=== PATIENT | female | born 1950 | race Caucasian/White ===

== ENCOUNTER 2021-03-27 09:13 | Inpatient (IN) | payer MEDICARE ==
[2021-03-27] MEDS ORDERED: PANTOPRAZOLE 40 MG/10 ML VIAL IVP STA (10:31)
[2021-03-27 10:57] LABS: Basophils % (A) 1 %; Eosinophils # (A) 0.2 k/uL (0-0.7); Eosinophils % (A) 2 %; HCT 36.2 % (34.0-46.0); Lymphocytes % (A) 14 %; MCH 36.8 pg (25.0-35.0); MCHC 33.2 g/dL (31.0-37.0); MCV 110.9 fL (80.0-100.0); Macrocytosis Marked; Mean Platelet Volume 7.5; Monocytes # (A) 0.3 k/uL (0-1.0); Monocytes % (A) 4 %; Neutrophils # (A) 5.7 k/uL (1.3-7.7); Neutrophils % (A) 78 %; Platelet Count 186 k/uL (150-450); RBC 3.27 m/uL (3.80-5.40); RDW 13.4 % (11.5-15.5); WBC 7.3 k/uL (3.8-10.6)
[2021-03-27 11:08] LABS: AST 113 U/L (14-36); African American GFR (CKD) >90 (>60 ml/min/1.73 sqM); Albumin 2.9 g/dL (3.5-5.0); Alkaline Phosphatase 197 U/L (38-126); Anion Gap 8 mmol/L; Blood Urea Nitrogen 6 mg/dL (7-17); Calcium 8.9 mg/dL (8.4-10.2); Carbon Dioxide 23 mmol/L (22-30); Chloride 106 mmol/L (98-107); Glucose 98 mg/dL (74-99); Non-African American GFR(CKD) >90 (>60 ml/min/1.73 sqM); Potassium 3.8 mmol/L (3.5-5.1); Sodium 137 mmol/L (137-145); Total Bilirubin 0.3 mg/dL (0.2-1.3); Total Protein 5.7 g/dL (6.3-8.2)
[2021-03-27 11:11] LABS: ALT 37 U/L (4-34); Lipase 68 U/L (23-300); Magnesium 1.5 mg/dL (1.6-2.3)
[2021-03-27 11:29] LABS: Partial Thromboplastin Time 22.6 sec (22.0-30.0); Prothrombin Time 10.6 sec (9.0-12.0)
--- NOTE | 2021-03-27 11:37 | ED ---
GI Bleed HPI - General Chief complaint: GI Bleed Stated complaint: rectal bleeding Time Seen by Provider: 03/27/21 09:59 Source: patient Mode of arrival: ambulatory Limitations: no limitations - History of Present Illness Initial comments: Patient is a 70-year-old female, with hx of COPD on 2L at home, HTN, presenting to the emergency Department with complaints of rectal bleeding over the past 3 days. She states she's been having diarrhea for about 4-5 days and then noticed some rectal bleeding 3 days ago. She denies any abdominal pain however when she pushes on the left side it is sore. She denies any nausea or vomiting, no dysuria. She does have history of hemorrhoids but states these are not painful. Was approximately 10 years ago, had a few polyps but no other concerns. She is not on blood thinners. She's never had this before. She denies any lightheadedness or dizziness, no chest pain or shortness of breath. She has no further complaints at this time. Her vital signs are stable upon arrival. - Related Data Home Medications Medication Instructions Recorded Confirmed ARIPiprazole [Abilify] 5 mg PO DAILY 03/27/21 03/27/21 Aspirin EC [Ecotrin] 325 mg PO DAILY 03/27/21 03/27/21 Atorvastatin [Lipitor] 40 mg PO HS 03/27/21 03/27/21 Furosemide [Lasix] 20 mg PO DAILY 03/27/21 03/27/21 Omeprazole 20 mg PO DAILY 03/27/21 03/27/21 Phenytoin Sodium Extended 200 mg PO BID 03/27/21 03/27/21 [Dilantin] Sertraline [Zoloft] 100 mg PO BID 03/27/21 03/27/21 traZODone HCL 100 mg PO HS 03/27/21 03/27/21 Allergies Allergy/AdvReac Type Severity Reaction Status Date / Time Penicillins Allergy Rash/Hives Verified 03/27/21 12:56 Review of Systems ROS Statement: Those systems with pertinent positive or pertinent negative responses have been documented in the HPI. ROS Other: All systems not noted in ROS Statement are negative. Past Medical History Past Medical History: COPD, Hyperlipidemia, Hypertension History of Any Multi-Drug Resistant Organisms: None Reported Past Surgical History: Appendectomy, Hysterectomy, Orthopedic Surgery, Tonsillectomy Additional Past Surgical History / Comment(s): right hand, right/left shoulder Past Psychological History: Anxiety Smoking Status: Former smoker Past Alcohol Use History: Daily Past Drug Use History: None Reported General Exam - General Exam Comments Initial Comments: GENERAL: Patient is well-developed and well-nourished. Patient is nontoxic and in no acute distress. HEAD: Atraumatic, normocephalic. EYES: Pupils equal round and reactive to light, extraocular movements intact, sclera anicteric, conjunctiva are normal. Eyelids were unremarkable. ENT: Nares patent, oropharynx clear without exudates. Moist mucous membranes. LUNGS: Unlabored respirations. Breath sounds clear to auscultation bilaterally and equal. No wheezes rales or rhonchi. HEART: Regular rate and rhythm without murmurs, rubs or gallops. ABDOMEN: Soft, tender to palpation of left lower quadrant, normoactive bowel sounds. No guarding, no rebound. No masses appreciated. MUSCULOSKELETAL: Normal extremities with adequate strength and normal range of motion, no pitting or edema. No clubbing or cyanosis. NEUROLOGICAL: Patient is alert and oriented x 3. Motor and sensory are also intact. Cranial nerves II through XII grossly intact. Symmetrical smile. Normal speech, normal gait. PSYCH: Normal mood, normal affect. SKIN: Warm, Dry, normal turgor, no rashes or lesions noted. Limitations: no limitations Rectal exam: Present: normal rectal tone, heme (+) stool, hemorrhoids (A few small external hemorrhoids, no active bleeding.). Absent: fecal impaction Course Vital Signs 03/27/21 03/27/21 03/27/21 09:48 10:47 12:27 Temperature 98.4 F Pulse Rate 98 85 91 Pulse Rate [ Right] Respiratory 18 18 18 Rate Blood Pressure 123/77 137/73 128/79 Blood Pressure [Left Arm] O2 Sat by Pulse 92 L 100 98 Oximetry 03/27/21 03/27/21 03/27/21 13:41 14:06 14:41 Temperature 98.3 F Pulse Rate 75 Pulse Rate [ 90 Right] Respiratory 18 17 Rate Blood Pressure 132/82 Blood Pressure 143/81 [Left Arm] O2 Sat by Pulse 98 97 98 Oximetry Medical Decision Making - Medical Decision Making Patient is a 70-year-old female with history of COPD, hypertension, presenting with rectal bleeding for the past 3 days. She is on blood thinners. She has never had this before. She had some left lower quadrant abdominal pain on exam. Labs reveal hemoglobin at 12.0, lactic acid was elevated at 3.0, liver enzymes are elevated, troponin is normal. Stool occult is positive. CT reveals no acute process. Patient will be admitted for GI bleed. Dr. Miller does agree to consult on the patient as we do not have GI coverage this weekend. Patient accepted by Dr. Donis. Case discussed with Dr. Osborn. - Lab Data Result diagrams: 03/27/21 10:40 03/27/21 10:40 Lab Results 03/27/21 03/27/21 03/27/21 Range/Units 10:40 10:40 10:40 WBC 7.3 (3.8-10.6) k/uL RBC 3.27 L (3.80-5.40) m/uL Hgb 12.0 (11.4-16.0) gm/dL Hct 36.2 (34.0-46.0) % MCV 110.9 H (80.0-100.0) fL MCH 36.8 H (25.0-35.0) pg MCHC 33.2 (31.0-37.0) g/dL RDW 13.4 (11.5-15.5) % Plt Count 186 (150-450) k/uL MPV 7.5 Neutrophils % 78 % Lymphocytes % 14 % Monocytes % 4 % Eosinophils % 2 % Basophils % 1 % Neutrophils # 5.7 (1.3-7.7) k/uL Lymphocytes # 1.0 (1.0-4.8) k/uL Monocytes # 0.3 (0-1.0) k/uL Eosinophils # 0.2 (0-0.7) k/uL Basophils # 0.0 (0-0.2) k/uL Manual Slide Review Performed Macrocytosis Marked A PT 10.6 (9.0-12.0) sec INR 1.0 (<1.2) APTT 22.6 (22.0-30.0) sec Sodium (137-145) mmol/L Potassium (3.5-5.1) mmol/L Chloride (98-107) mmol/L Carbon Dioxide (22-30) mmol/L Anion Gap mmol/L BUN (7-17) mg/dL Creatinine (0.52-1.04) mg/dL Est GFR (CKD-EPI)AfAm (>60 ml/min/1.73 sqM) Est GFR (CKD-EPI)NonAf (>60 ml/min/1.73 sqM) Glucose (74-99) mg/dL Lactic Ac Sepsis Rflx Plasma Lactic Acid Brooks (0.7-2.0) mmol/L Calcium (8.4-10.2) mg/dL Magnesium (1.6-2.3) mg/dL Total Bilirubin (0.2-1.3) mg/dL AST (14-36) U/L ALT (4-34) U/L Alkaline Phosphatase (38-126) U/L Troponin I (0.000-0.034) ng/mL Total Protein (6.3-8.2) g/dL Albumin (3.5-5.0) g/dL Lipase (23-300) U/L Stool Occult Blood Positive H (Negative) Blood Type Confirm 03/27/21 03/27/21 03/27/21 Range/Units 10:40 10:40 10:40 WBC (3.8-10.6) k/uL RBC (3.80-5.40) m/uL Hgb (11.4-16.0) gm/dL Hct (34.0-46.0) % MCV (80.0-100.0) fL MCH (25.0-35.0) pg MCHC (31.0-37.0) g/dL RDW (11.5-15.5) % Plt Count (150-450) k/uL MPV Neutrophils % % Lymphocytes % % Monocytes % % Eosinophils % % Basophils % % Neutrophils # (1.3-7.7) k/uL Lymphocytes # (1.0-4.8) k/uL Monocytes # (0-1.0) k/uL Eosinophils # (0-0.7) k/uL Basophils # (0-0.2) k/uL Manual Slide Review Macrocytosis PT (9.0-12.0) sec INR (<1.2) APTT (22.0-30.0) sec Sodium 137 (137-145) mmol/L Potassium 3.8 (3.5-5.1) mmol/L Chloride 106 (98-107) mmol/L Carbon Dioxide 23 (22-30) mmol/L Anion Gap 8 mmol/L BUN 6 L (7-17) mg/dL Creatinine 0.23 L (0.52-1.04) mg/dL Est GFR (CKD-EPI)AfAm >90 (>60 ml/min/1.73 sqM) Est GFR (CKD-EPI)NonAf >90 (>60 ml/min/1.73 sqM) Glucose 98 (74-99) mg/dL Lactic Ac Sepsis Rflx Plasma Lactic Acid Brooks 3.0 H* (0.7-2.0) mmol/L Calcium 8.9 (8.4-10.2) mg/dL Magnesium 1.5 L (1.6-2.3) mg/dL Total Bilirubin 0.3 (0.2-1.3) mg/dL AST 113 H (14-36) U/L ALT 37 H (4-34) U/L Alkaline Phosphatase 197 H (38-126) U/L Troponin I <0.012 (0.000-0.034) ng/mL Total Protein 5.7 L (6.3-8.2) g/dL Albumin 2.9 L (3.5-5.0) g/dL Lipase 68 (23-300) U/L Stool Occult Blood (Negative) Blood Type Confirm 03/27/21 03/27/21 Range/Units 10:40 11:22 WBC (3.8-10.6) k/uL RBC (3.80-5.40) m/uL Hgb (11.4-16.0) gm/dL Hct (34.0-46.0) % MCV (80.0-100.0) fL MCH (25.0-35.0) pg MCHC (31.0-37.0) g/dL RDW (11.5-15.5) % Plt Count (150-450) k/uL MPV Neutrophils % % Lymphocytes % % Monocytes % % Eosinophils % % Basophils % % Neutrophils # (1.3-7.7) k/uL Lymphocytes # (1.0-4.8) k/uL Monocytes # (0-1.0) k/uL Eosinophils # (0-0.7) k/uL Basophils # (0-0.2) k/uL Manual Slide Review Macrocytosis PT (9.0-12.0) sec INR (<1.2) APTT (22.0-30.0) sec Sodium (137-145) mmol/L Potassium (3.5-5.1) mmol/L Chloride (98-107) mmol/L Carbon Dioxide (22-30) mmol/L Anion Gap mmol/L BUN (7-17) mg/dL Creatinine (0.52-1.04) mg/dL Est GFR (CKD-EPI)AfAm (>60 ml/min/1.73 sqM) Est GFR (CKD-EPI)NonAf (>60 ml/min/1.73 sqM) Glucose (74-99) mg/dL Lactic Ac Sepsis Rflx Y Plasma Lactic Acid Brooks (0.7-2.0) mmol/L Calcium (8.4-10.2) mg/dL Magnesium (1.6-2.3) mg/dL Total Bilirubin (0.2-1.3) mg/dL AST (14-36) U/L ALT (4-34) U/L Alkaline Phosphatase (38-126) U/L Troponin I (0.000-0.034) ng/mL Total Protein (6.3-8.2) g/dL Albumin (3.5-5.0) g/dL Lipase (23-300) U/L Stool Occult Blood (Negative) Blood Type Confirm O Positive Disposition Clinical Impression: GI bleed Disposition: ADMITTED IP TO THIS [facility] Condition: Stable Decision Date: 03/27/21 Decision Time: 12:43
--- NOTE | 2021-03-27 12:16 | CT ---
EXAMINATION TYPE: CT abdomen pelvis w con DATE OF EXAM: 03/27/2021 COMPARISON: None HISTORY: LLQ pain Rectal bleeding for [address] DLP: 990 mGycm Automated exposure control for dose reduction was used. TECHNIQUE: Helical acquisition of images was performed from the lung bases through the pelvis. CONTRAST: Performed without Oral Contrast and with IV Contrast, patient injected with 100 ml mL of Isovue 300. FINDINGS: There is an 8.7 mm calcified granuloma in the left lung base medially otherwise the lung bases are cl ear of suspicious mass or consolidation. There is mild fatty infiltration liver. There is no gallstone or biliary ductal dilatation. There is no focal mass in the liver, pancreas, spleen, or adrenal glands. The kidneys excrete contrast promptly and symmetrically and no solid renal mass or hydronephrosis. Th ere is no retroperitoneal adenopathy or hemorrhage in the caliber of the abdominal aorta is normal. There is no free intraperitoneal air or fluid. The bowel loops are normal in caliber and there is no evidence of obstruction. No inflammatory changes are identified within the mesentery. There is no pelvic mass, free fluid, abscess or adenopathy. The osseous structures and soft tissues are intact. IMPRESSION: No significant abnormality seen.
[2021-03-27] MEDS ORDERED: NALOXONE 0.4 MG/ML 1 ML VIAL IV PRN (12:41)
[2021-03-27] MEDS ORDERED: ONDANSETRON 4 MG/2 ML VIAL IVP PRN (12:41)
[2021-03-27] MEDS: SODIUM CHLORIDE 0.9% 1,000 ML IV SCH (13:37)
[2021-03-27] MEDS ORDERED: ACETAMINOPHEN TAB 325 MG TAB PO PRN (14:08)
[2021-03-27] MEDS ORDERED: IPRATROPIUM-ALBUTEROL 3 ML NEB INHALATION PRN (15:09)
--- NOTE | 2021-03-27 15:09 | P.HPIM ---
History of Present Illness H&P Date: 03/27/21 Chief Complaint: bloody diarrhea 70-year-old female with a history of COPD on 2 L of oxygen at home, presents cements from complaining of rectal bleeding for the last 2 days. She also reports that she has been having watery diarrhea, several times per day. She denies any abdominal pain, no nausea or vomiting. She does not take anticoagulants but she is on a baby aspirin. She has not taken any NSAIDs, she occasionally drinks alcohol and has had 2 alcoholic beverages a few days ago. She had a routine colonoscopy for screening several years ago which was grossly normal, she has no history of GI bleed in the past. Denies any fevers or chills, no history of recent travel or sick contacts, no recent antibiotic use. In the ED, her vital signs were normal, hemoglobin was 12, the suppositive for occult blood in the stool. CT of the abdomen and pelvis did not show any active bleeding, no masses, no signs of colitis. Liver enzymes were elevated, and there was evidence of fatty liver on CT. Review of Systems Constitutional: Reports as per HPI Past Medical History Past Medical History: COPD, Hyperlipidemia, Hypertension History of Any Multi-Drug Resistant Organisms: None Reported Past Surgical History: Appendectomy, Hysterectomy, Orthopedic Surgery, Tonsillectomy Additional Past Surgical History / Comment(s): right hand, right/left shoulder Past Psychological History: Anxiety Smoking Status: Former smoker Past Alcohol Use History: Daily Past Drug Use History: None Reported Medications and Allergies Home Medications Medication Instructions Recorded Confirmed Type ARIPiprazole [Abilify] 5 mg PO DAILY 03/27/21 03/27/21 History Aspirin EC [Ecotrin] 325 mg PO DAILY 03/27/21 03/27/21 History Atorvastatin [Lipitor] 40 mg PO HS 03/27/21 03/27/21 History Furosemide [Lasix] 20 mg PO DAILY 03/27/21 03/27/21 History Omeprazole 20 mg PO DAILY 03/27/21 03/27/21 History Phenytoin Sodium Extended 200 mg PO BID 03/27/21 03/27/21 History [Dilantin] Sertraline [Zoloft] 100 mg PO BID 03/27/21 03/27/21 History traZODone HCL 100 mg PO HS 03/27/21 03/27/21 History Allergies Allergy/AdvReac Type Severity Reaction Status Date / Time Penicillins Allergy Rash/Hives Verified 03/27/21 12:56 Physical Exam Osteopathic Statement: *. No significant issues noted on an osteopathic structural exam other than those noted in the History and Physical/Consult. Vitals: Vital Signs Temp Pulse Resp BP Pulse Ox 03/27/21 13:41 75 18 132/82 98 03/27/21 12:27 91 18 128/79 98 03/27/21 10:47 85 18 137/73 100 03/27/21 09:48 98.4 F 98 18 123/77 92 L Intake and Output 03/26/21 03/27/21 03/27/21 22:59 06:59 14:59 Other: Weight 68.039 kg - Constitutional General appearance: average body habitus, cooperative - Respiratory Respiratory: bilateral: wheezing - Cardiovascular Rhythm: regular Heart sounds: normal: S1, S2 - Gastrointestinal General gastrointestinal: no distended, no hepatomegaly, normal bowel sounds, tenderness Localized gastrointestinal: tender: LLQ Results CBC & Chem 7: 03/27/21 10:40 03/27/21 10:40 Labs: Abnormal Lab Results - Last 24 Hours (Table) 03/27/21 03/27/21 03/27/21 Range/Units 10:40 10:40 10:40 RBC 3.27 L (3.80-5.40) m/uL MCV 110.9 H (80.0-100.0) fL MCH 36.8 H (25.0-35.0) pg Macrocytosis Marked A BUN 6 L (7-17) mg/dL Creatinine 0.23 L (0.52-1.04) mg/dL Plasma Lactic Acid Brooks (0.7-2.0) mmol/L Magnesium 1.5 L (1.6-2.3) mg/dL AST 113 H (14-36) U/L ALT 37 H (4-34) U/L Alkaline Phosphatase 197 H (38-126) U/L Total Protein 5.7 L (6.3-8.2) g/dL Albumin 2.9 L (3.5-5.0) g/dL Stool Occult Blood Positive H (Negative) 03/27/21 Range/Units 10:40 RBC (3.80-5.40) m/uL MCV (80.0-100.0) fL MCH (25.0-35.0) pg Macrocytosis BUN (7-17) mg/dL Creatinine (0.52-1.04) mg/dL Plasma Lactic Acid Brooks 3.0 H* (0.7-2.0) mmol/L Magnesium (1.6-2.3) mg/dL AST (14-36) U/L ALT (4-34) U/L Alkaline Phosphatase (38-126) U/L Total Protein (6.3-8.2) g/dL Albumin (3.5-5.0) g/dL Stool Occult Blood (Negative) Thrombosis Risk Factor Assmnt - Choose All That Apply Any of the Below Risk Factors Present?: No Other Risk Factors: Yes Each Risk Factor Represents 2 Points: Age 61-74 years Other congenital or acquired thrombophilia - If yes, enter type in comment: No Thrombosis Risk Factor Assessment Total Risk Factor Score: 2 Thrombosis Risk Factor Assessment Level: Low Risk Assessment and Plan (1) GI bleed Current Visit: Yes Status: Acute Priority: High Code(s): K92.2 - G ASTROINTESTINAL HEMORRHAGE, UNSPECIFIED SNOMED Code(s): 70882059 Plan: #GI bleed -Suspected lower GI source of bleeding, patient does have a history of hemorrhoids although this does not appear to be because of bleeding -Hemoglobin 12.1, continue to trend and transfuse if less than 7 -Avoid all anticoagulants and antiplatelets as well as NSAIDs -IV fluids, IV Protonix -Consult GI for possible colonoscopy # Hypomagnesemia -Magnesium 1.5 -Replace and repeat as needed # Transaminitis -AST 113, ILT 37 -Evidence of fatty liver on CT -Continue monitor, consider outpatient follow-up # Lactic acidosis -Lactic acid level 3.0 -No signs of sepsis or hypoperfusion -May possibly be related to GI bleed, or liver disease -IV fluids, repeat lactic acid # History of COPD with chronic hypoxic respiratory failure -Evidence of mild bronchospasm on exam, will start patient on duo nebs as needed -Consider steroids and azithromycin if symptoms worsen -On 2 L of oxygen at home # DVT prophylaxis -SCDs Time with Patient: Greater than 30
[2021-03-27] MEDS: MAGNESIUM SULFATE-D5W PMX 1 GM in DEXTROSE/WATER 1 100ML.BAG IVPB SCH ×2 (15:36→18:19)
--- NOTE | 2021-03-27 18:45 | P.GSCN ---
History of Present Illness Consult date: 03/27/21 History of present illness: CHIEF COMPLAINT: GI bleed HISTORY OF PRESENT ILLNESS: The patient is a 70 year old female who presented to emergency room with acute bleeding ongoing for the last 2-3 days. She reports copious bloody stools including today upon admission to the hospital. Last colonoscopy over 10 years ago. From presentation to the emergency room, she c omplained of left lower quadrant abdominal pain crampy nature which is now improved. She takes aspirin daily. No reports of prior gastric ulcers. She is admitted for acute bloody bowel movements. She denies any prior episodes of acute blood in stools. PAST MEDICAL HISTORY: See list and reviewed PAST SURGICAL HISTORY: See list and reviewed MEDICATIONS: See list and reviewed ALLERGIES: See list and reviewed SOCIAL HISTORY: See list and reviewed FAMILY HISTORY: See list and reviewed REVIEW OF ORGAN SYSTEMS: CONSTITUTIONAL: No fevers or chills. No recent weight loss. EYES: Denies any trouble with vision. No glasses. HEENT: No difficulties with hearing. No nosebleeds. No difficulty swallowing. RESPIRATORY: Denies pneumonia. Denies any troubles with breathing or dyspnea on exertion. CARDIOVASCULAR: Denies any chest pain, palpitations, or recent heart attacks. Has hyperlipidemia. Has hypertensive heart disease GASTROINTESTINAL: Has gastroesophageal reflux disease. See above for blood in stools. GENITOURINARY: Denies any blood in urine or increased urinary frequency. NEUROLOGICAL: Denies any numbness or tingling along the distal extremities. Has seizure disorder. MUSCULOSKELETAL: Denies any back pain, stiffness or joint arthritis. SKIN: No current skin cancer. No rash. PSYCHIATRIC: History of depression. ENDOCRINE: Denies current thyroid disorders. Denies any blood sugar glucose intolerance. HEME/LYMPHATIC: Denies any lumps and bumps around the neck. No recent deep venous thrombosis. ALLERGY/IMMUNOLOGY: No immunoglobulin therapy. No immune deficiencies. BREAST: Denies current breast lumps, pain or nipple discharge. PHYSICAL EXAM: VITALS: Reviewed CONSTITUTIONAL: Well developed and in no acute distress. EYES: Conjuctivae without sclera icterus. Extraocular movements grossly intact. HEAD, EARS, NOSE, THROAT: Moist buccal mucosa. Head is atraumatic, normocephalic. Hears conversational speech. No nasal drainage. NECK: Supple. No JV distention. No thyroidomegaly. RESPIRATORY: Non-labored respirations and equal bilateral excursions. No gross wheezes. CARDIOVASCULAR: Regular rate and rhythm. Palpable 2+ radial pulses. ABDOMEN: No peritonitis. LYMPH: No neck lymphadenopathy. MUSCULOSKELETAL: Nail and fingers with good capillary refill. SKIN: Warm and well perfused with good skin turgor. NEUROLOGIC: Cranial nerves II through XII grossly intact. No focal or lateralizing signs. PSYCH: Appropriate affect. Alert and oriented to person, place and time. Displays appropriate insight. CLINCAL LABS: Reviewed. Hemoglobin 12.0. WBC normal at 7.3. IMAGING: CT of the abdomen and pelvis independently reviewed without inflam matory changes along the colon or small bowel. Gallbladder with features of gallstones. This is my independent interpretation. RADIOLOGY: Report reviewed the CT of abdomen and pelvis with granuloma identified at the left lung base ASSESSMENT: 1. Gastrointestinal bleed 2. Left lower quadrant abdominal pain PLAN: 1. Recommend upper endoscopy to assess for acute bleed. 2. Alternatively, colonoscopy described for continued bleed. 3. May continue clear liquid diet ADVANCE DIRECTIVE: Thank you for this kind consultation. Past Medical History Past Medical History: COPD, Hyperlipidemia, Hypertension History of Any Multi-Drug Resistant Organisms: None Reported Past Surgical History: Appendectomy, Hysterectomy, Orthopedic Surgery, Tonsillectomy Additional Past Surgical History / Comment(s): right hand, right/left shoulder Past Psychological History: Anxiety Smoking Status: Former smoker Past Alcohol Use History: Daily Past Drug Use History: None Reported Medications and Allergies Home Medications Medication Instructions Recorded Confirmed Type ARIPiprazole [Abilify] 5 mg PO DAILY 03/27/21 03/27/21 History Aspirin EC [Ecotrin] 325 mg PO DAILY 03/27/21 03/27/21 History Atorvastatin [Lipitor] 40 mg PO HS 03/27/21 03/27/21 History Furosemide [Lasix] 20 mg PO DAILY 03/27/21 03/27/21 History Omeprazole 20 mg PO DAILY 03/27/21 03/27/21 History Phenytoin Sodium Extended 200 mg PO BID 03/27/21 03/27/21 History [Dilantin] Sertraline [Zoloft] 100 mg PO BID 03/27/21 03/27/21 History traZODone HCL 100 mg PO HS 03/27/21 03/27/21 History Allergies Allergy/AdvReac Type Severity Reaction Status Date / Time Penicillins Allergy Rash/Hives Verified 03/27/21 12:56 Surgical - Exam Vital Signs Temp Pulse Resp BP Pulse Ox 98.4 F 98 18 123/77 92 L 03/27/21 09:48 03/27/21 09:48 03/27/21 09:48 03/27/21 09:48 03/27/21 09:48 Results - Labs 03/27/21 10:40 03/27/21 10:40 Abnormal Lab Results - Last 24 Hours (Table) 03/27/21 03/27/21 03/27/21 Range/Units 10:40 10:40 10:40 RBC 3.27 L (3.80-5.40) m/uL MCV 110.9 H (80.0-100.0) fL MCH 36.8 H (25.0-35.0) pg Macrocytosis Marked A BUN 6 L (7-17) mg/dL Creatinine 0.23 L (0.52-1.04) mg/dL Plasma Lactic Acid Brooks (0.7-2.0) mmol/L Magnesium 1.5 L (1.6-2.3) mg/dL AST 113 H (14-36) U/L ALT 37 H (4-34) U/L Alkaline Phosphatase 197 H (38-126) U/L Total Protein 5.7 L (6.3-8.2) g/dL Albumin 2.9 L (3.5-5.0) g/dL Stool Occult Blood Positive H (Negative) 03/27/21 Range/Units 10:40 RBC (3.80-5.40) m/uL MCV (80.0-100.0) fL MCH (25.0-35.0) pg Macrocytosis BUN (7-17) mg/dL Creatinine (0.52-1.04) mg/dL Plasma Lactic Acid Brooks 3.0 H* (0.7-2.0) mmol/L Magnesium (1.6-2.3) mg/dL AST (14-36) U/L ALT (4-34) U/L Alkaline Phosphatase (38-126) U/L Total Protein (6.3-8.2) g/dL Albumin (3.5-5.0) g/dL Stool Occult Blood (Negative) Diabetes panel 03/27/21 Range/Units 10:40 Sodium 137 (137-145) mmol/L Potassium 3.8 (3.5-5.1) mmol/L Chloride 106 (98-107) mmol/L Carbon Dioxide 23 (22-30) mmol/L BUN 6 L (7-17) mg/dL Creatinine 0.23 L (0.52-1.04) mg/dL Glucose 98 (74-99) mg/dL Calcium 8.9 (8.4-10.2) mg/dL AST 113 H (14-36) U/L ALT 37 H (4-34) U/L Alkaline Phosphatase 197 H (38-126) U/L Total Protein 5.7 L (6.3-8.2) g/dL Albumin 2.9 L (3.5-5.0) g/dL Calcium panel 03/27/21 Range/Units 10:40 Calcium 8.9 (8.4-10.2) mg/dL Albumin 2.9 L (3.5-5.0) g/dL Pituitary panel 03/27/21 Range/Units 10:40 Sodium 137 (137-145) mmol/L Potassium 3.8 (3.5-5.1) mmol/L Chloride 106 (98-107) mmol/L Carbon Dioxide 23 (22-30) mmol/L BUN 6 L (7-17) mg/dL Creatinine 0.23 L (0.52-1.04) mg/dL Glucose 98 (74-99) mg/dL Calcium 8.9 (8.4-10.2) mg/dL Adrenal panel 03/27/21 Range/Units 10:40 Sodium 137 (137-145) mmol/L Potassium 3.8 (3.5-5.1) mmol/L Chloride 106 (98-107) mmol/L Carbon Dioxide 23 (22-30) mmol/L BUN 6 L (7-17) mg/dL Creatinine 0.23 L (0.52-1.04) mg/dL Glucose 98 (74-99) mg/dL Calcium 8.9 (8.4-10.2) mg/dL Total Bilirubin 0.3 (0.2-1.3) mg/dL AST 113 H (14-36) U/L ALT 37 H (4-34) U/L Alkaline Phosphatase 197 H (38-126) U/L Total Protein 5.7 L (6.3-8.2) g/dL Albumin 2.9 L (3.5-5.0) g/dL Assessment and Plan (1) Hypertensive heart disease Current Visit: Yes Status: Acute Code(s): I11.9 - HYPERTENSIVE HEART DISEASE WITHOUT HEART FAILURE SNOMED Code(s): 09123321 (2) Seizure disorder Current Visit: Yes Status: Acute Code(s): G40.909 - EPILEPSY, UNSP, NOT INTRACTABLE, WITHOUT STATUS EPILEPTICUS SNOMED Code(s): 976357304 (3) GI bleed Current Visit: Yes Status: Acute Priority: High Code(s): K92.2 - GASTROINTESTINAL HEMORRHAGE, UNSPECIFIED SNOMED Code(s): 33862438 (4) Depressive disorder Current Visit: Yes Status: Acute Code(s): F32.9 - MAJOR DEPRESSIVE DISORDER, SINGLE EPISODE, UNSPECIFIED SNOMED Code(s): 74975667
[2021-03-27 19:10] LABS: Basophils % (A) 0 %; Eosinophils # (A) 0.2 k/uL (0-0.7); Eosinophils % (A) 2 %; HCT 33.8 % (34.0-46.0); HGB 11.2 gm/dL (11.4-16.0); Lymphocytes # (A) 1.3 k/uL (1.0-4.8); Lymphocytes % (A) 13 %; MCH 36.6 pg (25.0-35.0); MCV 110.8 fL (80.0-100.0); Macrocytosis Marked; Mean Platelet Volume 7.6; Monocytes # (A) 0.3 k/uL (0-1.0); Monocytes % (A) 4 %; Neutrophils # (A) 7.6 k/uL (1.3-7.7); Neutrophils % (A) 80 %; Platelet Count 177 k/uL (150-450); RBC 3.05 m/uL (3.80-5.40); RDW 13.5 % (11.5-15.5); WBC 9.5 k/uL (3.8-10.6)
[2021-03-27] MEDS: traZODone HCL 100 MG TAB PO SCH (21:21)
[2021-03-27] MEDS: SERTRALINE 100 MG TAB PO SCH (21:21)
[2021-03-27] MEDS: PHENYTOIN SODIUM EXTENDED 100 MG CAP PO SCH (21:21)
[2021-03-28] MEDS: SODIUM CHLORIDE 0.9% 1,000 ML IV SCH ×3 (01:41→19:59)
[2021-03-28 01:49] LABS: Basophils % (A) 0 %; Eosinophils # (A) 0.1 k/uL (0-0.7); Eosinophils % (A) 1 %; HCT 31.8 % (34.0-46.0); HGB 10.3 gm/dL (11.4-16.0); Lymphocytes % (A) 11 %; MCHC 32.3 g/dL (31.0-37.0); MCV 111.4 fL (80.0-100.0); Mean Platelet Volume 7.8; Monocytes # (A) 0.4 k/uL (0-1.0); Monocytes % (A) 5 %; Neutrophils # (A) 6.9 k/uL (1.3-7.7); Neutrophils % (A) 81 %; Platelet Count 151 k/uL (150-450); RBC 2.85 m/uL (3.80-5.40); RDW 12.9 % (11.5-15.5); WBC 8.5 k/uL (3.8-10.6)
[2021-03-28 01:51] LABS: Macrocytosis Marked
[2021-03-28 06:29] LABS: ALT 33 U/L (4-34); AST 116 U/L (14-36); African American GFR (CKD) >90 (>60 ml/min/1.73 sqM); Albumin 2.3 g/dL (3.5-5.0); Alkaline Phosphatase 171 U/L (38-126); Anion Gap 4 mmol/L; Blood Urea Nitrogen 3 mg/dL (7-17); Calcium 7.9 mg/dL (8.4-10.2); Carbon Dioxide 25 mmol/L (22-30); Chloride 105 mmol/L (98-107); Globulin 2.4 g/dL; Glucose 101 mg/dL (74-99); Magnesium 1.9 mg/dL (1.6-2.3); Non-African American GFR(CKD) >90 (>60 ml/min/1.73 sqM); Potassium 3.4 mmol/L (3.5-5.1); Sodium 134 mmol/L (137-145); Total Bilirubin 0.4 mg/dL (0.2-1.3); Total Protein 4.7 g/dL (6.3-8.2)
[2021-03-28] MEDS: PANTOPRAZOLE 40 MG/10 ML VIAL IV SCH (08:36)
[2021-03-28] MEDS: SERTRALINE 100 MG TAB PO SCH ×2 (08:36→20:00)
[2021-03-28] MEDS: ARIPiprazole 5 MG TAB PO SCH (08:36)
[2021-03-28] MEDS: PHENYTOIN SODIUM EXTENDED 100 MG CAP PO SCH ×2 (08:36→19:59)
[2021-03-28] MEDS: FUROSEMIDE 20 MG TAB PO SCH (08:36)
--- NOTE | 2021-03-28 09:33 | P.PN ---
Subjective Progress Note Date: 03/28/21 CHIEF COMPLAINT: GI bleed HISTORY OF PRESENT ILLNESS: The patient is a 70 year old female who presented to emergency room with acute bleeding from the rectum. She had 2 small bowel movements with blood. Last night, I was contacted by her nurse for new tachycardia with heart rate 115 to 120s. Patient denies any prior cardiac work- up in the past. She denies abdominal pain. REVIEW OF ORGAN SYSTEMS: Had new cardiac event last night with tachyarrhythmia. No shortness of breath. No fevers or chills. PHYSICAL EXAM: VITALS: Reviewed CONSTITUTIONAL: Well developed and in no acute distress. EYES: Conjuctivae without sclera icterus. Extraocular movements grossly intact. HEAD, EARS, NOSE, THROAT: Moist buccal mucosa. Head is atraumatic, normocephalic. Hears conversational speech. No nasal drainage. NECK: Supple. No JV distention. No thyroidomegaly. RESPIRATORY: Non-labored respirations and equal bilateral excursions. No gross wheezes. CARDIOVASCULAR: 2+ radial pulses. ABDOMEN: No peritonitis. MUSCULOSKELETAL: Nail and fingers with good capillary refill. SKIN: Warm and well perfused with good skin turgor. NEUROLOGIC: Cranial nerves II through XII grossly intact. No focal or later alizing signs. PSYCH: Appropriate affect. Alert and oriented to person, place and time. Displays appropriate insight. CLINCAL LABS: Reviewed. Hemoglobin 12.0, now 10.3. ASSESSMENT: 1. Gastrointestinal bleed 2. Left lower quadrant abdominal pain 3. Cardiac event, tachyarrhythmia. PLAN: 1. Procedures are on hold due to new cardiac event. She has no prior cardiac work-up or cardiac status with EKG. 2. 12-lead EKG for new transient arrhythmia. 3. Cardiology consultation for new transient tachyarrhythmia. Objective - Vital Signs Vital signs: Vital Signs Temp 98.8 F 03/28/21 07:00 Pulse 94 03/28/21 07:00 Resp 18 03/28/21 07:00 BP 131/80 03/28/21 07:00 Pulse Ox 98 03/28/21 07:00 Intake & Output 03/27/21 03/28/21 03/28/21 18:59 06:59 18:59 Intake Total 342 Balance 342 Weight 68.039 kg Intake: Oral 342 Other: Voiding Method Toilet # Voids 2 1 # Bowel Movements 3 1 - Labs CBC & Chem 7: 03/28/21 00:44 03/28/21 05:12 Labs: Abnormal Lab Results - Last 24 Hours (Table) 03/27/21 03/27/21 03/27/21 Range/Units 10:40 10:40 10:40 RBC 3.27 L (3.80-5.40) m/uL Hgb (11.4-16.0) gm/dL Hct (34.0-46.0) % MCV 110.9 H (80.0-100.0) fL MCH 36.8 H (25.0-35.0) pg Macrocytosis Marked A Sodium (137-145) mmol/L Potassium (3.5-5.1) mmol/L BUN 6 L (7-17) mg/dL Creatinine 0.23 L (0.52-1.04) mg/dL Glucose (74-99) mg/dL Plasma Lactic Acid Brooks (0.7-2.0) mmol/L Calcium (8.4-10.2) mg/dL Magnesium 1.5 L (1.6-2.3) mg/dL AST 113 H (14-36) U/L ALT 37 H (4-34) U/L Alkaline Phosphatase 197 H (38-126) U/L Total Protein 5.7 L (6.3-8.2) g/dL Albumin 2.9 L (3.5-5.0) g/dL Stool Occult Blood Positive H (Negative) 03/27/21 03/27/21 03/27/21 Range/Units 10:40 14:58 18:43 RBC 3.05 L (3.80-5.40) m/uL Hgb 11.2 L (11.4-16.0) gm/dL Hct 33.8 L (34.0-46.0) % MCV 110.8 H (80.0-100.0) fL MCH 36.6 H (25.0-35.0) pg Macrocytosis Marked A Sodium (137-145) mmol/L Potassium (3.5-5.1) mmol/L BUN (7-17) mg/dL Creatinine (0.52-1.04) mg/dL Glucose (74-99) mg/dL Plasma Lactic Acid Brooks 3.0 H* 2.3 H* (0.7-2.0) mmol/L Calcium (8.4-10.2) mg/dL Magnesium (1.6-2.3) mg/dL AST (14-36) U/L ALT (4-34) U/L Alkaline Phosphatase (38-126) U/L Total Protein (6.3-8.2) g/dL Albumin (3.5-5.0) g/dL Stool Occult Blood (Negative) 03/27/21 03/28/21 03/28/21 Range/Units 18:43 00:44 05:12 RBC 2.85 L (3.80-5.40) m/uL Hgb 10.3 L (11.4-16.0) gm/dL Hct 31.8 L (34.0-46.0) % MCV 111.4 H (80.0-100.0) fL MCH 36.0 H (25.0-35.0) pg Macrocytosis Marked A Sodium 134 L (137-145) mmol/L Potassium 3.4 L (3.5-5.1) mmol/L BUN 3 L (7-17) mg/dL Creatinine 0.25 L (0.52-1.04) mg/dL Glucose 101 H (74-99) mg/dL Plasma Lactic Acid Brooks 2.3 H* (0.7-2.0) mmol/L Calcium 7.9 L (8.4-10.2) mg/dL Magnesium (1.6-2.3) mg/dL AST 116 H (14-36) U/L ALT (4-34) U/L Alkaline Phosphatase 171 H (38-126) U/L Total Protein 4.7 L (6.3-8.2) g/dL Albumin 2.3 L (3.5-5.0) g/dL Stool Occult Blood (Negative) Assessment and Plan (1) Hypertensive heart disease Current Visit: Yes Status: Acute Code(s): I11.9 - HYPERTENSIVE HEART DISEASE WITHOUT HEART FAILURE SNOMED Code(s): 76658301 (2) Seizure disorder Current Visit: Yes Status: Acute Code(s): G40.909 - EPILEPSY, UNSP, NOT INTRACTABLE, WITHOUT STATUS EPILEPTICUS SNOMED Code(s): 398309864 (3) GI bleed Current Visit: Yes Status: Acute Priority: High Code(s): K92.2 - MICHAEL ROINTESTINAL HEMORRHAGE, UNSPECIFIED SNOMED Code(s): 50045117 (4) Depressive disorder Current Visit: Yes Status: Acute Code(s): F32.9 - MAJOR DEPRESSIVE DISORDER, SINGLE EPISODE, UNSPECIFIED SNOMED Code(s): 15855752 (5) Tachyarrhythmia Current Visit: Yes Status: Acute Code(s): R00.0 - TACHYCARDIA, UNSPECIFIED SNOMED Code(s): 6112664
[2021-03-28 09:43] LABS: HCT 28.8 % (37.2-46.3); HGB 9.3 g/dL (12.0-15.0); MCH 35.2 pg (27.0-32.0); MCHC 32.3 g/dL (32.0-37.0); MCV 109.1 fL (80.0-97.0); Mean Platelet Volume 10.2 fL (9.5-12.2); Platelet Count 147 X 10*3/uL (140-440); RBC 2.64 X 10*6/uL (4.10-5.20); RDW 13.8 % (11.5-14.5); WBC 7.57 X 10*3/uL (4.50-10.00)
[2021-03-28 10:23] LABS: Basophils # (A) 0.04 X 10*3/uL (0.00-0.10); Basophils % (A) 0.5 %; Eosinophils % (A) 1.3 %; Lymphocytes # (A) 1.17 X 10*3/uL (0.90-5.00); Lymphocytes % (A) 15.5 %; Monocytes # (A) 0.57 X 10*3/uL (0.20-1.00); Monocytes % (A) 7.5 %; Neutrophils # (A) 5.67 X 10*3/uL (1.80-7.70); Neutrophils % (A) 74.9 %
[2021-03-28 10:24] LABS: Macrocytosis (M) 2+
--- NOTE | 2021-03-28 11:55 | P.CRDCN ---
History of Present Illness Consult date: 03/28/21 Requesting physician: Abby Guillen Reason for Consult (text): New aflutter Chief complaint: GI bleed History of present illness: This is a pleasant 70-year-old female patient with a history of COPD, hyperlipidemia, former smoker and previously treated for hypertension but her antihypertensives were stopped due to hypotension. Presented to the hospital with GI bleeding. She began having bright red blood per rectum on , 03/25/2021. She presented to the emergency department yesterday under the advisement of her children. Hemoglobin on admission was 12 and is now down to 9.3. She continues to have bright red blood per rectum. She was on aspirin at home and this is currently on hold. She was initially scheduled to undergo endoscopy this morning but had some tachycardia through the night. We were asked to see the patient in consultation for new atrial flutter. Upon review of telemetry patient appeared to be sinus mechanism with sinus tachycardia, PACs and occasional atrial triplets but no clear evidence of atrial flutter. Labs this morning show potassium of 3.4, BUN 3, creatinine 0.25, on admission troponin was negative. AST, ALT and alkaline phosphatase have been elevated and there is evidence of fatty liver on computed tomography scan. She has been afeb rile and vital signs are stable. Upon examination the patient is resting comfortably in bed. Denies any chest discomfort. Her breathing is stable. She does complain of occasional brief palpitations that she has had intermittently for quite some time. She denies any orthopnea or edema. Past Medical History Past Medical History: COPD, Hyperlipidemia, Hypertension History of Any Multi-Drug Resistant Organisms: None Reported Past Surgical History: Appendectomy, Hysterectomy, Orthopedic Surgery, [place] ctomy Additional Past Surgical History / Comment(s): right hand, right/left shoulder Past Psychological History: Anxiety Smoking Status: Former smoker Past Alcohol Use History: Daily Past Drug Use History: None Reported Medications and Allergies Home Medications Medication Instructions Recorded Confirmed Type ARIPiprazole [Abilify] 5 mg PO DAILY 03/27/21 03/27/21 History Aspirin EC [Ecotrin] 325 mg PO DAILY 03/27/21 03/27/21 History Atorvastatin [Lipitor] 40 mg PO HS 03/27/21 03/27/21 History Furosemide [Lasix] 20 mg PO DAILY 03/27/21 03/27/21 History Omeprazole 20 mg PO DAILY 03/27/21 03/27/21 History Phenytoin Sodium Extended 200 mg PO BID 03/27/21 03/27/21 History [Dilantin] Sertraline [Zoloft] 100 mg PO BID 03/27/21 03/27/21 History traZODone HCL 100 mg PO HS 03/27/21 03/27/21 History Allergies Allergy/AdvReac Type Severity Reaction Status Date / Time Penicillins Allergy Rash/Hives Verified 03/27/21 12:56 Physical Exam Vitals: Vital Signs Temp Pulse Pulse Resp BP BP Pulse Ox 03/28/21 08:00 18 03/28/21 07:00 98.8 F 94 18 131/80 98 03/28/21 01:34 97.5 F L 100 20 116/65 98 03/27/21 21:25 20 03/27/21 19:58 97.6 F 113 H 20 148/84 96 03/27/21 14:41 98 03/27/21 14:06 98.3 F 90 17 143/81 97 03/27/21 13:41 75 18 132/82 98 03/27/21 12:27 91 18 128/79 98 03/27/21 10:47 85 18 137/73 100 Intake and Output 03/27/21 03/28/21 03/28/21 22:59 06:59 14:59 Intake Total 342 Balance 342 Intake: Oral 342 Other: Voiding Method Toilet Toilet # Voids 2 1 # Bowel Movements 5 3 1 PHYSICAL EXAMINATION: This is a 70-year-old female in no apparent distress at the time of my examination. VITAL SIGNS: Blood pressure 131/80, heart rate 94, respirations 18, temp 98.8F. Patient is 98 % on 2 L via nasal cannula. HEENT: Head is atraumatic, normocephalic. Pupils are equal, round. Sclerae anicteric. Conjunctivae are clear. Mucous membranes of the mouth are moist. Neck is supple. There is no elevated jugular venous pressure. No carotid bruit is heard. CHEST EXAMINATION: Lungs reveal diminished air entry bilaterally. No wheezes rales or rhonchi. Respirations even and nonlabored. HEART EXAMINATION: Heart regular, positive S1 and S2. No S3. No S4. With a soft systolic murmur. ABDOMEN: Soft, left lower quadrant tenderness to palpation. Bowel sounds are heard. No organomegaly noted. EXTREMITIES: 2+ peripheral pulses with no evidence of peripheral edema and no calf tenderness noted. NEUROLOGIC EXAMINATION: Patient is awake, alert and oriented x3. Results 03/28/21 05:12 03/28/21 05:12 Cardiac Enzymes 03/27/21 03/27/21 03/28/21 Range/Units 10:40 10:40 05:12 AST 113 H 116 H (14-36) U/L Troponin I <0.012 (0.000-0.034) ng/mL Coagulation 03/27/21 Range/Units 10:40 PT 10.6 (9.0-12.0) sec APTT 22.6 (22.0-30.0) sec CBC 03/27/21 03/27/21 03/28/21 Range/Units 10:40 18:43 00:44 WBC 7.3 9.5 8.5 (3.8-10.6) k/uL RBC 3.27 L 3.05 L 2.85 L (3.80-5.40) m/uL Hgb 12.0 11.2 L 10.3 L (11.4-16.0) gm/dL Hct 36.2 33.8 L 31.8 L (34.0-46.0) % Plt Count 186 177 151 (150-450) k/uL 03/28/21 Range/Units 05:12 WBC 7.57 (3.8-10.6) k/uL RBC 2.64 L (3.80-5.40) m/uL Hgb 9.3 L (11.4-16.0) gm/dL Hct 28.8 L (34.0-46.0) % Plt Count 147 (150-450) k/uL Comprehensive Metabolic Panel 03/27/21 03/28/21 Range/Units 10:40 05:12 Sodium 137 134 L (137-145) mmol/L Potassium 3.8 3.4 L (3.5-5.1) mmol/L Chloride 106 105 (98-107) mmol/L Carbon Dioxide 23 25 (22-30) mmol/L BUN 6 L 3 L (7-17) mg/dL Creatinine 0.23 L 0.25 L (0.52-1.04) mg/dL Glucose 98 101 H (74-99) mg/dL Calcium 8.9 7.9 L (8.4-10.2) mg/dL AST 113 H 116 H (14-36) U/L ALT 37 H 33 (4-34) U/L Alkaline Phosphatase 197 H 171 H (38-126) U/L Total Protein 5.7 L 4.7 L (6.3-8.2) g/dL Albumin 2.9 L 2.3 L (3.5-5.0) g/dL Current Medications Generic Name Dose Route Start Last Admin Trade Name Freq PRN Reason Stop Dose Admin Acetaminophen 650 mg 03/27/21 14:08 Acetaminophen Tab 325 Mg Tab PO Q6HR PRN Mild Pain or Fever > 100.5 Albuterol/Ipratropium 3 ml 03/27/21 15:09 Ipratropium-Albuterol 3 Ml Neb INHALATION RT-QID PRN Shortness Of Breath Or Wheezing Aripiprazole 5 mg 03/28/21 09:00 03/28/21 08:36 Aripiprazole 5 Mg Tab PO 5 mg DAILY ANTONIETTA Administration Furosemide 20 mg 03/28/21 09:00 03/28/21 08:36 Furosemide 20 Mg Tab PO 20 mg DAILY ANTONIETTA Administration Sodium Chloride 1,000 mls @ 120 mls/hr 03/27/21 12:45 03/28/21 01:41 Saline 0.9% IV 120 mls/hr .Q8H20M ANTONIETTA Administration Naloxone HCl 0.2 mg 03/27/21 12:41 Naloxone 0.4 Mg/Ml 1 Ml Vial IV Q2M PRN Opioid Reversal Ondansetron HCl 4 mg 03/27/21 12:41 Ondansetron 4 Mg/2 Ml Vial IVP Q8HR PRN Nausea And Vomiting Pantoprazole Sodium 40 mg 03/28/21 09:00 03/28/21 08:36 Pantoprazole 40 Mg/10 Ml Vial IV 40 mg DAILY ANTONIETTA Administration Phenytoin Sodium 200 mg 03/27/21 21:00 03/28/21 08:36 Phenytoin Sodium Extended 100 Mg Cap PO 200 mg BID ANTONIETTA Administration Sertraline HCl 100 mg 03/27/21 21:00 03/28/21 08:36 Sertraline 100 Mg Tab PO 100 mg BID ANTONIETTA Administration Trazodone HCl 100 mg 03/27/21 21:00 03/27/21 21:21 Trazodone Hcl 100 Mg Tab PO 100 mg HS ANTONIETTA Administration Intake and Output 03/27/21 03/28/21 03/28/21 22:59 06:59 14:59 Intake Total 342 Balance 342 Intake: Oral 342 Other: Voiding Method Toilet Toilet # Voids 2 1 # Bowel Movements 5 3 1 03/28/21 05:12 03/28/21 05:12 Assessment and Plan Assessment: #1 sinus tachycardia w/PACs, atrial triplets #2 GI bleed #3 COPD #4 hyperlipidemia Plan: From cardiology's perspective there does not appear to be any malignant arrh ythmia. We will obtain an EKG. Continue telemetry monitoring. We'll obtain a 2- D echo with Doppler to assess cardiac structure and function. Tachycardia likely related to bleeding. We will continue to follow the patient provide further recommendations accordingly. The above dictated assessment and findings were discussed with signing physician. The impression and plan of care have been directed as dictated. Gale Reyna, Nurse Practitioner, acting as scribe for signing physician.
--- NOTE | 2021-03-28 12:36 | P.PN ---
Progress Note - Text Progress Note Date: 03/28/21 Family at bedside of benefits and risks upper and lower endoscopy. Per discussion with nursing, patient is cleared to undergo upper and lower endoscopy from cardiology standpoint. All questions addressed including bowel prep. Patient reports intolerance to 1 gallon of GoLYTELY. We'll adjust the volume to 1-2 L. With her continued decline in hemoglobin including rectal bleeding, we'll proceed with upper and lower endoscopy. Cardiology assessment appreciated. Case deferred tomorrow.
[2021-03-28] MEDS ORDERED: POLYETHYLENE GLYCOL LYTES SOLN 4,000 ML SOLN.RECON PO ONE (12:37)
--- NOTE | 2021-03-28 13:38 | ECHOF ---
Referral Reason:tachycardia MEASUREMENTS -------- HEIGHT: 157.5 cm WEIGHT: 68.0 kg BP: 131/80 RVIDd: 3.5 cm (< 3.3) IVSd: 1.4 cm (0.6 - 1.1) LVIDd: 3.7 cm (3.9 - 5.3) LVPWd: 1.5 cm (0.6 - 1.1) IVSs: 1.8 cm LVIDs: 2.5 cm LVPWs: 1.7 cm LAESV Index (A-L): 30.58 ml/m Ao Diam: 3.0 cm (2.0 - 3.7) AV Cusp: 1.9 cm (1.5 - 2.6) LA Diam: 4.2 cm (2.7 - 3.8) MV EXCURSION: 15.928 mm (> 18.000) MV EF SLOPE: 67 mm/s (70 - 150) EPSS: 0.9 cm MV E Sudeep: 0.63 m/s MV DecT: 148 ms MV A Sudeep: 0.99 m/s MV E/A Ratio: 0.63 FINDINGS -------- This was a technically adequate study. The left ventricular size is normal. There is moderate concentric left ventricular hypertrophy. O verall left ventricular systolic function is normal with, an EF between 55 - 60 %. The right ventricle is mildly enlarged. LA is midly dilated 29-33ml/m2. The right atrial size is normal. Interatrial and interventricular septum intact. There is no evidence of aortic regurgitation. There is no evidence of aortic stenosis. Mild mitral regurgitation is present. Mild tricuspid regurgitation present. Unable to estimate RVSP due to inadequate TR jet spectral dop pler profile. There is no pulmonic regurgitation present. The aortic root size is normal. IVC Not well visulized. There is no pericardial effusion. CONCLUSIONS -------- 1. The left ventricular size is normal. 2. There is moderate concentric left ventricular hypertrophy. 3. Overall left ventricular systolic function is normal with, an EF between 55 - 60 %. 4. The right ventricle is mildly enlarged. 5. LA is midly dilated 29-33ml/m2. 6. Mild mitral regurgitation is present. 7. Mild tricuspid regurgitation present. TRANSPORTATION TECHNICIAN: Liz Hill [facility]
--- NOTE | 2021-03-28 17:16 | P.PN ---
Subjective Progress Note Date: 03/28/21 Patient was admitted yesterday with GIB. She continues to have bloody bowel movements, several times a day. Hemoglobin has dropped from 12 down to 9 today, she developed sinus tachycardia with heart rates in the 110s. Cardiology was consulted, EKG did not show any significant dysrhythmias. 2-D echo shows normal LV function and size, no wall motion abnormalities. Patient was supposed to have a colonoscopy today, but this was postponed due to tachycardia. She denies any chest pain, shortness of breath, no abdominal pain, nausea or vomiting Objective - Vital Signs Vital signs: Vital Signs Temp 97.6 F 03/28/21 15:00 Pulse 92 03/28/21 15:00 Resp 18 03/28/21 15:00 BP 128/75 03/28/21 15:00 Pulse Ox 98 03/28/21 15:00 Intake & Output 03/27/21 03/28/21 03/28/21 18:59 06:59 18:59 Intake Total 342 Balance 342 Weight 68.039 kg Intake: Oral 342 Other: Voiding Method Toilet Toilet # Voids 2 1 # Bowel Movements 3 1 - Exam CONSTITUTIONAL: Well developed and in no acute distress. EYES: Conjuctivae without sclera icterus. Extraocular movements grossly intact. HEAD, EARS, NOSE, THROAT: Moist buccal mucosa. Head is atraumatic, normocephalic. Hears conversational speech. No nasal drainage. NECK: Supple. No JV distention. No thyroidomegaly. RESPIRATORY: Non-labored respirations and equal bilateral excursions. No gross wheezes. CARDIOVASCULAR: 2+ radial pulses. ABDOMEN: No peritonitis. MUSCULOSKELETAL: Nail and fingers with good capillary refill. SKIN: Warm and well perfused with good skin turgor. NEUROLOGIC: Cranial nerves II through XII grossly intact. No focal or lateralizing signs. PSYCH: Appropriate affect. Alert and oriented to person, place and time. Displays appropriate insight. - Labs CBC & Chem 7: 03/28/21 05:12 03/28/21 05:12 Labs: Abnormal Lab Results - Last 24 Hours (Table) 03/27/21 03/27/21 03/28/21 Range/Units 18:43 18:43 00:44 RBC 3.05 L 2.85 L (3.80-5.40) m/uL Hgb 11.2 L 10.3 L (11.4-16.0) gm/dL Hct 33.8 L 31.8 L (34.0-46.0) % MCV 110.8 H 111.4 H (80.0-100.0) fL MCH 36.6 H 36.0 H (25.0-35.0) pg Macrocytosis Marked A Marked A Sodium (137-145) mmol/L Potassium (3.5-5.1) mmol/L BUN (7-17) mg/dL Creatinine (0.52-1.04) mg/dL Glucose (74-99) mg/dL Plasma Lactic Acid Brooks 2.3 H* (0.7-2.0) mmol/L Calcium (8.4-10.2) mg/dL AST (14-36) U/L Alkaline Phosphatase (38-126) U/L Total Protein (6.3-8.2) g/dL Albumin (3.5-5.0) g/dL 03/28/21 03/28/21 Range/Units 05:12 05:12 RBC 2.64 L (3.80-5.40) m/uL Hgb 9.3 L (11.4-16.0) gm/dL Hct 28.8 L (34.0-46.0) % MCV 109.1 H (80.0-100.0) fL MCH 35.2 H (25.0-35.0) pg Macrocytosis Sodium 134 L (137-145) mmol/L Potassium 3.4 L (3.5-5.1) mmol/L BUN 3 L (7-17) mg/dL Creatinine 0.25 L (0.52-1.04) mg/dL Glucose 101 H (74-99) mg/dL Plasma Lactic Acid Brooks (0.7-2.0) mmol/L Calcium 7.9 L (8.4-10.2) mg/dL AST 116 H (14-36) U/L Alkaline Phosphatase 171 H (38-126) U/L Total Protein 4.7 L (6.3-8.2) g/dL Albumin 2.3 L (3.5-5.0) g/dL Assessment and Plan (1) GI bleed Current Visit: Yes Status: Acute Priority: High Code(s): K92.2 - GASTROINTESTINAL HEMORRHAGE, UNSPECIFIED SNOMED Code(s): 08608386 Plan: #GI bleed -Worsening, patient continues to have bloody bowel movements -Hemoglobin dropped down to 9 from 12 yesterday -continue to trend and transfuse if less than 7 -Suspected lower GI source of bleeding, patient does have a history of hem orrhoids although this does not appear to be the cause of bleeding -Avoid all anticoagulants and antiplatelets as well as NSAIDs -IV fluids, IV Protonix -Plan for possible colonoscopy tomorrow. This was postponed today after the patient became tachycardic # Sinus tachycardia -Heart rate increased to the 110s today as the patient continued to have bloody bowel movements -This is most likely reactive due to intravascular volume loss -Continue IV fluids -EKG shows sinus tachycardia with no significant dysrhythmias or ST changes -2D echo shows normal LV function and size, no wall motion abnormalities # Hypomagnesemia -Magnesium 1.5 -Replace and repeat as needed # Transaminitis -Evidence of fatty liver on CT -Continue to monitor, consider outpatient follow-up # Lactic acidosis -Lactic acid level 3.0 on admission repeat 1.0 -No signs of sepsis or hypoperfusion -May possibly be related to GI bleed, or liver disease -IV fluids # History of COPD with chronic hypoxic respiratory failure -Evidence of mild bronchospasm on exam, will start patient on duo nebs as needed -Consider steroids and azithromycin if symptoms worsen -On 2 L of oxygen at home # DVT prophylaxis -SCDs Time with Patient: Greater than 30
[2021-03-28] MEDS: traZODone HCL 100 MG TAB PO SCH (20:00)
[2021-03-29 07:13] LABS: ALT 31 U/L (4-34); AST 96 U/L (14-36); African American GFR (CKD) >90 (>60 ml/min/1.73 sqM); Albumin 2.5 g/dL (3.5-5.0); Alkaline Phosphatase 183 U/L (38-126); Anion Gap 4 mmol/L; Blood Urea Nitrogen <2 mg/dL (7-17); Calcium 7.7 mg/dL (8.4-10.2); Carbon Dioxide 25 mmol/L (22-30); Chloride 106 mmol/L (98-107); Globulin 2.6 g/dL; Glucose 111 mg/dL (74-99); Magnesium 1.5 mg/dL (1.6-2.3); Non-African American GFR(CKD) >90 (>60 ml/min/1.73 sqM); Sodium 135 mmol/L (137-145); Total Bilirubin 0.5 mg/dL (0.2-1.3); Total Protein 5.1 g/dL (6.3-8.2)
[2021-03-29 07:30] LABS: Potassium 2.7 mmol/L (3.5-5.1)
[2021-03-29 07:43] LABS: Basophils % (A) 1 %; Eosinophils # (A) 0.1 k/uL (0-0.7); Eosinophils % (A) 1 %; HCT 33.7 % (34.0-46.0); HGB 10.8 gm/dL (11.4-16.0); Lymphocytes # (A) 0.9 k/uL (1.0-4.8); Lymphocytes % (A) 14 %; MCH 36.4 pg (25.0-35.0); MCHC 32.1 g/dL (31.0-37.0); MCV 113.2 fL (80.0-100.0); Macrocytosis Marked; Mean Platelet Volume 8.1; Monocytes # (A) 0.3 k/uL (0-1.0); Monocytes % (A) 5 %; Neutrophils # (A) 5.2 k/uL (1.3-7.7); Neutrophils % (A) 78 %; Platelet Count 149 k/uL (150-450); RBC 2.98 m/uL (3.80-5.40); RDW 13.3 % (11.5-15.5); WBC 6.7 k/uL (3.8-10.6)
--- NOTE | 2021-03-29 07:59 | P.PN ---
Progress Note - Text Progress Note Date: 03/29/21 Notified by RN team that potassium is less than 3.0 at 2.7. Procedure canceled due to severe hypokalemia with discussion with anesthesia. We will reassess after potassium levels are improved. Case deferred. May resume liquid diet.
[2021-03-29] MEDS ORDERED: POTASSIUM CHLORIDE 20 MEQ in WATER FOR INJECTION 1 100ML.BAG IVPB STA (08:03)
[2021-03-29] MEDS: SERTRALINE 100 MG TAB PO SCH ×2 (08:15→21:53)
[2021-03-29] MEDS: PHENYTOIN SODIUM EXTENDED 100 MG CAP PO SCH ×2 (08:15→21:54)
[2021-03-29] MEDS: SODIUM CHLORIDE 0.9% 1,000 ML IV SCH ×3 (08:16→21:55)
[2021-03-29] MEDS: PANTOPRAZOLE 40 MG/10 ML VIAL IV SCH (08:16)
[2021-03-29] MEDS: ARIPiprazole 5 MG TAB PO SCH (08:16)
[2021-03-29] MEDS: FUROSEMIDE 20 MG TAB PO SCH (08:16)
[2021-03-29] MEDS: MAGNESIUM SULFATE-D5W PMX 1 GM in DEXTROSE/WATER 1 100ML.BAG IVPB SCH ×4 (09:48→12:26)
[2021-03-29] MEDS ORDERED: POTASSIUM CHLORIDE ER 20 MEQ TAB.ER PO ONE ×2 (10:00→11:00)
--- NOTE | 2021-03-29 10:35 | P.PN ---
Subjective Progress Note Date: 03/29/21 HISTORY OF PRESENT ILLNESS: This is a pleasant 70-year-old female patient with a history of COPD, hyperlipidemia, former smoker and previously treated for hypertension but her antihypertensives were stopped due to hypotension. Presented to the hospital with GI bleeding. She began having bright red blood per rectum on , 03/25/2021. She presented to the emergency department yesterday under the advisement of her children. Hemoglobin on admission was 12 and is now down to 9.3. She continues to have bright red blood per rectum. She was on aspirin at home and this is currently on hold. She was initially scheduled to undergo endoscopy this morning but had some tachycardia through the night. We were asked to see the patient in consultation for new atrial flutter. Upon review of telemetry patient appeared to be sinus mechanism with sinus tachycardia, PACs and occasional atrial triplets but no clear evidence of atrial flutter. Labs this morning show potassium of 3.4, BUN 3, creatinine 0.25, on admission troponin was negative. AST, ALT and alkaline phosphatase have been elevated and there is evidence of fatty liver on computed tomography scan. She has been afebrile and vital signs are stable. Upon examination the patient is resting comfortably in bed. Denies any chest discomfort. Her breathing is stable. She does complain of occasional brief palpitations that she has had intermittently for quite some time. She denies any orthopnea or edema. 03/29/2021 Patient examined this morning at the bedside. Patient denies chest pain or pres sure. She denies shortness of breath. Patient was scheduled to undergo endoscopy today however this was canceled secondary to hypokalemia with a potassium of 2.7. Telemetry reveals sinus mechanism. No evidence of atrial fibrillation noted. Echocardiogram completed revealed ejection fraction 55-60%, mild mitral regurgitation, and mild tricuspid regurgitation. PHYSICAL EXAM: VITAL SIGNS: Reviewed. GENERAL: Well-developed in no acute distress. NECK: Supple. No JVD or thyromegaly LUNGS: Respirations even and unlabored. Lungs essentially clear to auscultation bilaterally. HEART: Regular rate and rhythm. S1 and S2 heard. EXTREMITIES: Normal range of motion. No clubbing or cyanosis. Peripheral pulses intact. No lower extremity edema ASSESSMENT: Sinus tachycardia with PACs, no evidence of atrial fibrillation/flutter Acute GI bleed COPD Hyperlipidemia Hypokalemia PLAN: Patient is currently stable from a cardiac perspective. No further inpatient recommendations from a cardiac standpoint. We will sign off. Please reconsult if needed. Nurse practitioner note has been reviewed by physician. Signing provider agrees with the documented findings, assessment, and plan of care. Objective - Vital Signs Vital signs: Vital Signs Temp 98.2 F 03/29/21 07:00 Pulse 105 H 03/29/21 07:00 Resp 16 03/29/21 07:00 BP 131/64 03/29/21 07:00 Pulse Ox 98 03/29/21 07:00 Intake & Output 03/28/21 03/29/21 03/29/21 18:59 06:59 18:59 Other: Voiding Method Toilet Toilet Toilet # Voids 1 4 # Bowel Movements 1 1 1 - Labs CBC & Chem 7: 03/29/21 06:34 03/29/21 06:34 Labs: Abnormal Lab Results - Last 24 Hours (Table) 03/29/21 03/29/21 Range/Units 06:34 06:34 RBC 2.98 L (3.80-5.40) m/uL Hgb 10.8 L (11.4-16.0) gm/dL Hct 33.7 L (34.0-46.0) % MCV 113.2 H (80.0-100.0) fL MCH 36.4 H (25.0-35.0) pg Plt Count 149 L (150-450) k/uL Lymphocytes # 0.9 L (1.0-4.8) k/uL Macrocytosis Marked A Sodium 135 L (137-145) mmol/L Potassium 2.7 L* (3.5-5.1) mmol/L BUN <2 L (7-17) mg/dL Creatinine 0.20 L (0.52-1.04) mg/dL Glucose 111 H (74-99) mg/dL Calcium 7.7 L (8.4-10.2) mg/dL Magnesium 1.5 L (1.6-2.3) mg/dL AST 96 H (14-36) U/L Alkaline Phosphatase 183 H (38-126) U/L Total Protein 5.1 L (6.3-8.2) g/dL Albumin 2.5 L (3.5-5.0) g/dL
--- NOTE | 2021-03-29 17:15 | P.PN ---
Subjective Progress Note Date: 03/29/21 CHIEF COMPLAINT: GI bleed HISTORY OF PRESENT ILLNESS: The patient is a 70 year old female who is admitted with bleeding from the rectum. She was scheduled for her scopes but potassium level was critical at 2.7. She denies acute abdominal pain. Hgb has improved from 9.3 to 10.8. She is being evaluated by cardiology for transient tachycardia. REVIEW OF ORGAN SYSTEMS: No shortness of breath. No fevers or chills. PHYSICAL EXAM: VITALS: Reviewed CONSTITUTIONAL: Well developed and in no acute distress. EYES: Conjuctivae without sclera icterus. Extraocular movements grossly intact. HEAD, EARS, NOSE, THROAT: Moist buccal mucosa. Head is atraumatic, normocephalic. Hears conversational speech. No nasal drainage. RESPIRATORY: Non-labored respirations and equal bilateral excursions. No gross wheezes. CARDIOVASCULAR: 2+ radial pulses. ABDOMEN: No peritonitis. Non-tender. MUSCULOSKELETAL: Nail and fingers with good capillary refill. SKIN: Warm and well perfused with good skin turgor. NEUROLOGIC: Cranial nerves II through XII grossly intact. No focal or lateralizing signs. PSYCH: Appropriate affect. Alert and oriented to person, place and time. Displays appropriate insight. CLINCAL LABS: Reviewed. Hemoglobin 12.0 on admission, up from 9.3 to 10.8. Potassium low at 2.7. Magnesium low 1.5 ASSESSMENT: 1. Gastrointestinal bleed 2. Left lower quadrant abdominal pain 3. Transient tachycardia 4. Hyokalemia 5. Hyomagnesia PLAN: 1. She has completed her bowel prep but potassium and magnesium are low. Procedures on hold pending correction of both magnesium and potassium. 2. Continue liquid diet. No need to repeat bowel prep at this time. 3. Procedure rescheduled for Monday. Objective - Vital Signs Vital signs: Vital Signs Temp 98.6 F 03/29/21 14:04 Pulse 97 03/29/21 14:04 Resp 18 03/29/21 14:04 BP 120/75 03/29/21 14:04 Pulse Ox 99 03/29/21 14:04 Intake & Output 03/28/21 03/29/21 03/29/21 18:59 06:59 18:59 Intake Total 550 Balance 550 Intake: Oral 550 Other: Voiding Method Toilet Toilet Toilet # Voids 1 4 1 # Bowel Movements 1 1 1 - Labs CBC & Chem 7: 03/29/21 06:34 03/29/21 06:34 Labs: Abnormal Lab Results - Last 24 Hours (Table) 03/29/21 03/29/21 Range/Units 06:34 06:34 RBC 2.98 L (3.80-5.40) m/uL Hgb 10.8 L (11.4-16.0) gm/dL Hct 33.7 L (34.0-46.0) % MCV 113.2 H (80.0-100.0) fL MCH 36.4 H (25.0-35.0) pg Plt Count 149 L (150-450) k/uL Lymphocytes # 0.9 L (1.0-4.8) k/uL Macrocytosis Marked A Sodium 135 L (137-145) mmol/L Potassium 2.7 L* (3.5-5.1) mmol/L BUN <2 L (7-17) mg/dL Creatinine 0.20 L (0.52-1.04) mg/dL Glucose 111 H (74-99) mg/dL Calcium 7.7 L (8.4-10.2) mg/dL Magnesium 1.5 L (1.6-2.3) mg/dL AST 96 H (14-36) U/L Alkaline Phosphatase 183 H (38-126) U/L Total Protein 5.1 L (6.3-8.2) g/dL Albumin 2.5 L (3.5-5.0) g/dL Assessment and Plan (1) Hypertensive heart disease Current Visit: Yes Status: Acute Code(s): I11.9 - HYPERTENSIVE HEART DISEASE WITHOUT HEART FAILURE SNOMED Code(s): 85987482 (2) Seizure disorder Current Visit: Yes Status: Acute Code(s): G40.909 - EPILEPSY, UNSP, NOT INTRACTABLE, WITHOUT STATUS EPILEPTICUS SNOMED Code(s): 698664391 (3) GI bleed Current Visit: Yes Status: Acute Priority: High Code(s): K92.2 - GASTROINTESTINAL HEMORRHAGE, UNSPECIFIED SNOMED Code(s): 86213512 (4) Depressive disorder Current Visit: Yes Status: Acute Code(s): F32.9 - MAJOR DEPRESSIVE DISORDER, SINGLE EPISODE, UNSPECIFIED SNOMED Code(s): 07762443 (5) Tachyarrhythmia Current Visit: Yes Status: Acute Code(s): R00.0 - TACHYCARDIA, UNSPECIFIED SNOMED Code(s): 6102262
[2021-03-29 17:24] LABS: African American GFR (CKD) >90 (>60 ml/min/1.73 sqM); Anion Gap 2 mmol/L; Blood Urea Nitrogen <2 mg/dL (7-17); Calcium 7.7 mg/dL (8.4-10.2); Carbon Dioxide 24 mmol/L (22-30); Chloride 106 mmol/L (98-107); Glucose 100 mg/dL (74-99); Magnesium 2.5 mg/dL (1.6-2.3); Non-African American GFR(CKD) >90 (>60 ml/min/1.73 sqM); Potassium 3.2 mmol/L (3.5-5.1); Sodium 132 mmol/L (137-145)
[2021-03-29] MEDS: POTASSIUM CHLORIDE ER 20 MEQ TAB.ER PO SCH ×2 (17:42→21:53)
[2021-03-29] MEDS ORDERED: POTASSIUM BICARBONATE/CIT AC 20 MEQ TABLET.EFF PO ONE (18:31)
--- NOTE | 2021-03-29 18:38 | P.PN ---
Subjective Progress Note Date: 03/29/21 Patient is a 70-year-old female with a history of COPD, chronic hypoxic respiratory failure, hypertension, and dyslipidemia who presented with GI bleed. Patient seen and examined at bedside. She states that she did have her bowel prep and continues to have blood with each bowel movement. She is not having any overt abdominal pain at this time. No nausea or vomiting. She states that the IV potassium did cause aching in her arm. General: non toxic, no distress, appears at stated age Derm: warm, dry Head: atraumatic, normocephalic, symmetric Eyes: EOMI, no lid lag, anicteric sclera Mouth: no lip lesion, mucus membranes moist Cardiovascular: S1S2 tachycardic, no murmur, positive posterior tibial pulse bilateral, Lungs: Coarse breath sounds bilateral bilateral, no rhonchi, no rales , no accessory muscle use Abdominal: soft, nontender to palpation, no guarding, no appreciable organomegaly Ext: no gross muscle atrophy, no edema, no contractures Neuro: CN II-XI grossly intact, no focal neuro deficits Psych: Alert, oriented, appropriate affect GI bleed, acute blood loss anemia - B12 and TSH normal, folate pending -continues to have bloody bowel movements -Hemoglobin stable -continue to trend and transfuse if less than 7 -Suspected lower GI source of bleeding, patient does have a history of hemorrhoids although this does not appear to be the cause of bleeding -Avoid all anticoagulants and antiplatelets as well as NSAIDs -IV fluids, IV Protonix -Plan for possible colonoscopy tomorrow, held today due to hypokalemia Hypokalemia -IV and oral replacement -Recheck this afternoon and in a.m. Sinus tachycardia, improving -cardio recs apprecaited: signed off - follow HR -2D echo shows normal LV function and size, no wall motion abnormalities Transaminitis -Evidence of fatty liver on CT -Continue to monitor, - outpatient follow-up History of COPD with chronic hypoxic respiratory failure -prn duonebs -On 2 L of oxygen at home Hypomagnesemia, reoslved Lactic acidosis, resolved DVT prophylaxis: SCDs Objective - Vital Signs Vital signs: Vital Signs Temp 98.6 F 03/29/21 14:04 Pulse 97 03/29/21 14:04 Resp 18 03/29/21 14:04 BP 120/75 03/29/21 14:04 Pulse Ox 99 03/29/21 14:04 Intake & Output 03/28/21 03/29/21 03/29/21 18:59 06:59 18:59 Intake Total 550 Balance 550 Intake: Oral 550 Other: Voiding Method Toilet Toilet Toilet # Voids 1 4 1 # Bowel Movements 1 1 1 - Labs CBC & Chem 7: 03/29/21 06:34 03/29/21 16:51 Labs: Abnormal Lab Results - Last 24 Hours (Table) 03/29/21 03/29/21 03/29/21 Range/Units 06:34 06:34 16:51 RBC 2.98 L (3.80-5.40) m/uL Hgb 10.8 L (11.4-16.0) gm/dL Hct 33.7 L (34.0-46.0) % MCV 113.2 H (80.0-100.0) fL MCH 36.4 H (25.0-35.0) pg Plt Count 149 L (150-450) k/uL Lymphocytes # 0.9 L (1.0-4.8) k/uL Macrocytosis Marked A Sodium 135 L 132 L (137-145) mmol/L Potassium 2.7 L* 3.2 L (3.5-5.1) mmol/L BUN <2 L <2 L (7-17) mg/dL Creatinine 0.20 L 0.20 L (0.52-1.04) mg/dL Glucose 111 H 100 H (74-99) mg/dL Calcium 7.7 L 7.7 L (8.4-10.2) mg/dL Magnesium 1.5 L 2.5 H (1.6-2.3) mg/dL AST 96 H (14-36) U/L Alkaline Phosphatase 183 H (38-126) U/L Total Protein 5.1 L (6.3-8.2) g/dL Albumin 2.5 L (3.5-5.0) g/dL
[2021-03-29] MEDS: traZODone HCL 100 MG TAB PO SCH (21:54)
[2021-03-30] MEDS: SODIUM CHLORIDE 0.9% 1,000 ML IV SCH ×3 (04:53→19:28)
[2021-03-30 05:37] LABS: HCT 31.9 % (34.0-46.0); HGB 10.2 gm/dL (11.4-16.0); MCH 36.2 pg (25.0-35.0); MCHC 31.9 g/dL (31.0-37.0); MCV 113.7 fL (80.0-100.0); Mean Platelet Volume 7.7; Platelet Count 160 k/uL (150-450); RBC 2.81 m/uL (3.80-5.40); RDW 12.7 % (11.5-15.5); WBC 6.7 k/uL (3.8-10.6)
[2021-03-30 05:49] LABS: African American GFR (CKD) >90 (>60 ml/min/1.73 sqM); Anion Gap 1 mmol/L; Blood Urea Nitrogen <2 mg/dL (7-17); Carbon Dioxide 25 mmol/L (22-30); Chloride 108 mmol/L (98-107); Glucose 98 mg/dL (74-99); Non-African American GFR(CKD) >90 (>60 ml/min/1.73 sqM); Potassium 4.2 mmol/L (3.5-5.1); Sodium 134 mmol/L (137-145)
[2021-03-30 06:18] LABS: Macrocytosis Marked
[2021-03-30] MEDS: PANTOPRAZOLE 40 MG/10 ML VIAL IV SCH (08:45)
[2021-03-30] MEDS: SERTRALINE 100 MG TAB PO SCH ×2 (08:45→19:28)
[2021-03-30] MEDS: PHENYTOIN SODIUM EXTENDED 100 MG CAP PO SCH ×2 (08:45→19:28)
[2021-03-30] MEDS: FUROSEMIDE 20 MG TAB PO SCH (08:45)
[2021-03-30] MEDS: ARIPiprazole 5 MG TAB PO SCH (08:45)
--- NOTE | 2021-03-30 10:55 | P.PN ---
Subjective Progress Note Date: 03/30/21 Principal diagnosis: Feels okay, no chest pain no abdominal pain no nausea no vomiting no dizziness no shortness of breath. No further bleeding. Objective - Vital Signs Vital signs: Vital Signs Temp 98.3 F 03/30/21 07:00 Pulse 87 03/30/21 07:00 Resp 18 03/30/21 07:00 BP 140/70 03/30/21 07:00 Pulse Ox 98 03/30/21 01:17 Intake & Output 03/29/21 03/30/21 03/30/21 18:59 06:59 18:59 Intake Total 550 120 Output Total 2 Balance 550 118 Intake: Oral 550 120 Output: Stool 2 Other: Voiding Method Toilet Toilet # Voids 1 3 2 # Bowel Movements 1 4 - Exam General: non toxic, no distress, appears at stated age Derm: warm, dry Head: atraumatic, normocephalic, symmetric Eyes: EOMI, no lid lag, anicteric sclera Mouth: no lip lesion Cardiovascular: S1S2 tachycardic, no murmur, positive posterior tibial pulse bilateral, Lungs: Coarse breath sounds bilateral bilateral, no rhonchi, no rales , no accessory muscle use Abdominal: soft, nontender to palpation Ext: no gross muscle atrophy, no edema, no contractures Neuro: CN II-XI grossly intact, no focal neuro deficits Psych: Alert, oriented, appropriate affect - Labs CBC & Chem 7: 03/30/21 05:07 03/30/21 05:07 Labs: Abnormal Lab Results - Last 24 Hours (Table) 03/29/21 03/30/21 03/30/21 Range/Units 16:51 05:07 05:07 RBC 2.81 L (3.80-5.40) m/uL Hgb 10.2 L (11.4-16.0) gm/dL Hct 31.9 L (34.0-46.0) % MCV 113.7 H (80.0-100.0) fL MCH 36.2 H (25.0-35.0) pg Macrocytosis Marked A Sodium 132 L 134 L (137-145) mmol/L Potassium 3.2 L (3.5-5.1) mmol/L Chloride 108 H (98-107) mmol/L BUN <2 L <2 L (7-17) mg/dL Creatinine 0.20 L 0.27 L (0.52-1.04) mg/dL Glucose 100 H (74-99) mg/dL Calcium 7.7 L 8.0 L (8.4-10.2) mg/dL Magnesium 2.5 H (1.6-2.3) mg/dL Assessment and Plan Assessment: Acute GI bleed, with acute blood loss anemia -continue to trend and transfuse if less than 7 -Suspected lower GI source of bleeding -Avoid all anticoagulants and antiplatelets as well as NSAIDs -IV fluids, IV Protonix -Plan for possible EGD/colonoscopy tomorrow Hypokalemia Replace as indicated Sinus tachycardia, resolved -cardio recs apprecaited: signed off -2D echo shows normal LV function and size, no wall motion abnormalities Transaminitis -Evidence of fatty liver on CT -Continue to monitor, - outpatient follow-up History of COPD with chronic hypoxic respiratory failure -prn duonebs -On 2 L of oxygen at home Hypomagnesemia, reoslved Lactic acidosis, resolved DVT prophylaxis: SCDs Disposition: Home likely tomorrow after EGD colonoscopy
[2021-03-30] MEDS: traZODone HCL 100 MG TAB PO SCH (19:28)
[2021-03-31] MEDS: SODIUM CHLORIDE 0.9% 1,000 ML IV SCH ×3 (04:53→23:03)
[2021-03-31 06:33] LABS: HCT 31.4 % (34.0-46.0); HGB 10.3 gm/dL (11.4-16.0); MCH 37.1 pg (25.0-35.0); MCHC 32.7 g/dL (31.0-37.0); MCV 113.3 fL (80.0-100.0); Macrocytosis Marked; Mean Platelet Volume 7.5; Platelet Count 182 k/uL (150-450); RBC 2.77 m/uL (3.80-5.40); RDW 13.6 % (11.5-15.5); WBC 6.5 k/uL (3.8-10.6)
[2021-03-31 06:50] LABS: African American GFR (CKD) >90 (>60 ml/min/1.73 sqM); Anion Gap 5 mmol/L; Blood Urea Nitrogen <2 mg/dL (7-17); Calcium 8.1 mg/dL (8.4-10.2); Carbon Dioxide 21 mmol/L (22-30); Chloride 109 mmol/L (98-107); Glucose 97 mg/dL (74-99); Non-African American GFR(CKD) >90 (>60 ml/min/1.73 sqM); Potassium 3.5 mmol/L (3.5-5.1); Sodium 135 mmol/L (137-145)
[2021-03-31] MEDS: FUROSEMIDE 20 MG TAB PO SCH (08:11)
[2021-03-31] MEDS: PHENYTOIN SODIUM EXTENDED 100 MG CAP PO SCH ×2 (08:11→20:21)
[2021-03-31] MEDS: SERTRALINE 100 MG TAB PO SCH ×2 (08:11→20:21)
[2021-03-31] MEDS: PANTOPRAZOLE 40 MG/10 ML VIAL IV SCH (08:11)
[2021-03-31] MEDS: ARIPiprazole 5 MG TAB PO SCH (08:11)
[2021-03-31] MEDS ORDERED: LIDOCAINE 1% (10MG/ML) FOR IV START INTRADERMA PRN (09:16)
--- NOTE | 2021-03-31 10:26 | P.PN ---
Subjective Progress Note Date: 03/30/21 CHIEF COMPLAINT: GI bleed HISTORY OF PRESENT ILLNESS: The patient is a 70 year old female who is admitted with bleeding from the rectum. She reports decreased bleeding from the rectum. Potassium level was low and her improved to 4.2. REVIEW OF ORGAN SYSTEMS: No shortness of breath. No fevers or chills. PHYSICAL EXAM: VITALS: Reviewed CONSTITUTIONAL: Well developed and in no acute distress. EYES: Conjuctivae without sclera icterus. Extraocular movements grossly intact. HEAD, EARS, NOSE, THROAT: Moist buccal mucosa. Head is atraumatic, normocephalic. Hears conversational speech. No nasal drainage. RESPIRATORY: Non-labored respirations and equal bilateral excursions. No gross wheezes. CARDIOVASCULAR: 2+ radial pulses. ABDOMEN: No peritonitis. Non-tender. MUSCULOSKELETAL: Nail and fingers with good capillary refill. SKIN: Warm and well perfused with good skin turgor. NEUROLOGIC: Cranial nerves II through XII grossly intact. No focal or lateralizing signs. PSYCH: Appropriate affect. Alert and oriented to person, place and time. Displays appropriate insight. CLINCAL LABS: Reviewed. Hemoglobin 12.0 on admission, up from 9.3 to 10.8. Potassium low at 2.7, now 4.2 ASSESSMENT: 1. Gastrointestinal bleed 2. Left lower quadrant abdominal pain 3. Transient tachycardia 4. Hyokalemia 5. Hyomagnesia PLAN: 1. Will proceed with upper and lower endoscopy due to gastrointestinal bleed 2. Monitor potassium for recurrent hypokalemia Objective - Vital Signs Vital signs: Vital Signs Temp 98 F 03/30/21 13:40 Pulse 78 03/30/21 13:40 Resp 18 03/30/21 13:40 BP 127/62 03/30/21 13:40 Pulse Ox 100 03/30/21 13:40 Intake & Output 03/29/21 03/30/21 03/30/21 18:59 06:59 18:59 Intake Total 550 300 Output Total 402 Balance 550 -102 Intake: Oral 550 300 Output: Urine 400 Stool 2 Other: Voiding Method Toilet Toilet # Voids 1 3 1 # Bowel Movements 1 4 - Labs CBC & Chem 7: 03/31/21 06:03 03/31/21 06:03 Labs: Abnormal Lab Results - Last 24 Hours (Table) 03/29/21 03/30/21 03/30/21 Range/Units 06:34 05:07 05:07 RBC 2.81 L (3.80-5.40) m/uL Hgb 10.2 L (11.4-16.0) gm/dL Hct 31.9 L (34.0-46.0) % MCV 113.7 H (80.0-100.0) fL MCH 36.2 H (25.0-35.0) pg Macrocytosis Marked A Sodium 134 L (137-145) mmol/L Chloride 108 H (98-107) mmol/L BUN <2 L (7-17) mg/dL Creatinine 0.27 L (0.52-1.04) mg/dL Calcium 8.0 L (8.4-10.2) mg/dL RBC Folate 1,070 H (280 - 791) ng/mL Assessment and Plan (1) Hypertensive heart disease Current Visit: Yes Status: Acute Code(s): I11.9 - HYPERTENSIVE HEART DISEASE WITHOUT HEART FAILURE SNOMED Code(s): 61251688 (2) Seizure disorder Current Visit: Yes Status: Acute Code(s): G40.909 - EPILEPSY, UNSP, NOT INTRACTABLE, WITHOUT STATUS EPILEPTICUS SNOMED Code(s): 234939380 (3) GI bleed Current Visit: Yes Status: Acute Priority: High Code(s): K92.2 - GASTROINTESTINAL HEMORRHAGE, UNSPECIFIED SNOMED Code(s): 90740626 (4) Depressive disorder Current Visit: Yes Status: Acute Code(s): F32.9 - MAJOR DEPRESSIVE DISORDER, SINGLE EPISODE, UNSPECIFIED SNOMED Code(s): 09375512 (5) Tachyarrhythmia Current Visit: Yes Status: Acute Code(s): R00.0 - TACHYCARDIA, UNSPECIFIED SNOMED Code(s): 7088746
[2021-03-31] MEDS ORDERED: LIDOCAINE 1% INJ 10MG/ML (20 ML MDV) ONE (10:58)
[2021-03-31] MEDS ORDERED: PROPOFOL 10 MG/ML 20 ML VIAL IV ONE (10:58)
[2021-03-31] MEDS ORDERED: IV FLUID CONTINUATION 1,000 ML IV ONE (11:06)
[2021-03-31] MEDS: LACTATED RINGERS 1,000 ML IV SCH ×2 (11:09→11:10)
--- NOTE | 2021-03-31 11:33 | P.PN ---
Subjective Progress Note Date: 03/31/21 Principal diagnosis: Feels okay, continues to have some episodes of blood per rectum. No chest pain no abdominal pain. Objective - Vital Signs Vital signs: Vital Signs Temp 98 F 03/31/21 07:54 Pulse 74 03/31/21 07:54 Resp 14 03/31/21 07:54 BP 118/74 03/31/21 07:54 Pulse Ox 99 03/31/21 08:15 Intake & Output 03/30/21 03/31/21 03/31/21 18:59 06:59 18:59 Intake Total 300 100 Output Total 402 4 Balance -102 -4 100 Intake: IV 100 Oral 300 Output: Urine 400 Stool 2 4 Other: Voiding Method Toilet # Voids 1 5 # Bowel Movements 5 - Exam General: non toxic, no distress, appears at stated age Derm: warm, dry Head: atraumatic, normocephalic, symmetric Eyes: EOMI, no lid lag, anicteric sclera Mouth: no lip lesion Cardiovascular: S1S2 , no murmur, positive posterior tibial pulse bilateral, Lungs: Coarse breath sounds bilateral bilateral, no rhonchi, no rales , no accessory muscle use Abdominal: soft, nontender to palpation Ext: no gross muscle atrophy, no edema, no contractures Neuro: CN II-XI grossly intact, no focal neuro deficits Psych: Alert, oriented, appropriate affect - Labs CBC & Chem 7: 03/31/21 06:03 03/31/21 06:03 Labs: Abnormal Lab Results - Last 24 Hours (Table) 03/29/21 03/31/21 03/31/21 Range/Units 06:34 06:03 06:03 RBC 2.77 L (3.80-5.40) m/uL Hgb 10.3 L (11.4-16.0) gm/dL Hct 31.4 L (34.0-46.0) % MCV 113.3 H (80.0-100.0) fL MCH 37.1 H (25.0-35.0) pg Macrocytosis Marked A Sodium 135 L (137-145) mmol/L Chloride 109 H (98-107) mmol/L Carbon Dioxide 21 L (22-30) mmol/L BUN <2 L (7-17) mg/dL Creatinine 0.24 L (0.52-1.04) mg/dL Calcium 8.1 L (8.4-10.2) mg/dL RBC Folate 1,070 H (280 - 791) ng/mL Assessment and Plan Assessment: Acute GI bleed, with acute blood loss anemia -continue to trend and transfuse if less than 7 -Suspected lower GI source of bleeding -Avoid all anticoagulants and antiplatelets as well as NSAIDs -IV fluids, IV Protonix -Plan for possible EGD/colonoscopy today , appreciate GI input. Hemoglobin relatively stable at 10.3 Hypokalemia Replace as indicated Sinus tachycardia, resolved -cardio recs apprecaited: signed off -2D echo shows normal LV function and size, no wall motion abnormalities Transaminitis -Evidence of fatty liver on CT -Continue to monitor, - outpatient follow-up History of COPD with chronic hypoxic respiratory failure -prn duonebs -On 2 L of oxygen at home Hypomagnesemia, reoslved Lactic acidosis, resolved Weakness: Consult PT/OT DVT prophylaxis: SCDs Disposition: Pending clinical progression
--- NOTE | 2021-03-31 11:50 | P.PCN ---
Date of Procedure: 03/31/21 Description of Procedure: PREOPERATIVE DIAGNOSIS: Gastrointestinal bleeding with anemia POSTOPERATIVE DIAGNOSIS: Gastrointestinal bleeding with anemia Diaphragmatic hiatal hernia OPERATION: Esophagogastroduodenoscopy SURGEON: Abby Guillen MD ANESTHESIA: MAC. INDICATIONS: The patient is a 70-year-old female who presents with gastrointestinal bleeding including acute blood loss anemia. Benefits and risks of the procedure were described. Informed consent was obtained. DESCRIPTION: The patient was brought into the endoscopy suite and laid in the left lateral decubitus position. An Olympus gastroscope was passed along the posterior oropharynx down to the distal esophagus where the squamocolumnar junction was encountered at 35 cm from the incisors. The stomach was entered and no bile reflux was found. Additional findings are listed below. Biopsies with cold forceps were obtained of the antrum. The first through third portion of the duodenum was examined and unremarkable. Retroflexion of the scope confirmed Hill grade 3 lower esophageal valve. The squamocolumnar junction demonstrated LA grade A erosive esophagitis. The stomach was desufflated. The patient tolerated the procedure well. FINDINGS: Squamocolumnar junction 35 cm from the incisors. Diaphragmatic hiatus at 37 cm. Hiatal hernia, 2 cm Hill grade 3 lower esophageal valve. LA grade A erosive esophagitis. No active duodenitis. No duodenal or gastric ulcers. RECOMMENDATIONS: Upper endoscopy as needed.
[2021-03-31] MEDS ORDERED: SERTRALINE 100 MG TAB PO SCH (12:15)
[2021-03-31] MEDS ORDERED: PHENYTOIN SODIUM EXTENDED 100 MG CAP PO SCH (12:15)
[2021-03-31] MEDS ORDERED: ARIPiprazole 5 MG TAB PO SCH (12:15)
[2021-03-31] MEDS: metroNIDAZOLE-NS PMX 500 MG in SALINE 1 100ML.BAG IVPB SCH ×3 (12:23→23:03)
--- NOTE | 2021-03-31 14:39 | P.PCN ---
Date of Procedure: 03/31/21 Description of Procedure: PREOPERATIVE DIAGNOSIS: Gastrointestinal bleeding with acute blood loss anemia Rectal bleeding POSTOPERATIVE DIAGNOSIS: Gastrointestinal bleeding with acute blood loss anemia Rectal bleeding Segmental colitis ascending colon, proximal transverse colon Ascending colon adenoma Scattered diverticulosis Complicated internal hemorrhoids, grade 3 OPERATION: Colonoscopy to the ileocecal valve and appendiceal orifice, cecum Colonoscopy with hot snare polypectomy Colonoscopy with cold forceps biopsy SURGEON: Abby Guillen MD. ANESTHESIA: MAC. INDICATIONS: The patient is an 70-year-old female who presents with acute blood loss anemia as well as rectal bleeding and gastrointestinal bleeding. Benefits and risks were described and informed consent was obtained. DESCRIPTION OF PROCEDURE: The patient had undergone a GoLYTELY prep. The patient had been brought into the operating room and laid in the left lateral decubitus position. After adequate intravenous sedation, the rectum was examined with 2% lidocaine jelly. External hemorrhoids were encountered. The rectal tone was within normal limits. No lesions were palpated in the rectal vault. An Olympus colonoscope was advanced until the cecum, ileocecal valve and appendiceal orifice were clearly viewed. The prep was excellent. Easily friable mucosa was identified along the ascending colon and proximal transverse colon with acute mild bleed. Biopsies were cold forceps was obtained along the ascending colon. At the distal ascending colon, 6 mm tubulovillous adenoma was identified and removed using snare polypectomy. Very few, scattered diverticulum of the colon was identified of the ascending colon and distal transverse colon. No colitis was identified of the descending colon or sigmoid colon. Retroflexion of the scope demonstrated grade 3 internal hemorrhoids with recent inflammation. The colon was desufflated. The patient had tolerated the procedure well. Withdrawal time was over 6 minutes. FINDINGS: Aronchick preparation quality scale 1 (1-5) Internal hemorrhoids, grade 3 with recent inflammation External hemorrhoids, grade 4. No arteriovenous malformations. Few scattered diverticulum ascending colon and transverse colon. Segmental colitis with easily friable mucosa involving the ascending colon and proximal transverse colon biopsies obtained. Removal of 1 polyp: - Snare polypectomy distal ascending colon, 8 mm tubulovillous adenoma polyp. RECOMMENDATIONS: 1. Start Flagyl 500 mg 3 times daily for colitis 2. Rectal suppositories for symptomatic internal hemorrhoids 3. Recommend repeat colonoscopy in one year, 2021 4. May start low fiber diet 5. Additional recommendations pending results of pathology Plan - Discharge Summary Discharge Rx Participant: No New Discharge Prescriptions: No Action Phenytoin Sodium Extended [Dilantin] 200 mg PO BID Furosemide [Lasix] 20 mg PO DAILY ARIPiprazole [Abilify] 5 mg PO DAILY traZODone HCL 100 mg PO HS Sertraline [Zoloft] 100 mg PO BID Aspirin EC [Ecotrin] 325 mg PO DAILY Omeprazole 20 mg PO DAILY Atorvastatin [Lipitor] 40 mg PO HS Discharge Medication List ARIPiprazole [Abilify] 5 mg PO DAILY 03/27/21 [History] Aspirin EC [Ecotrin] 325 mg PO DAILY 03/27/21 [History] Atorvastatin [Lipitor] 40 mg PO HS 03/27/21 [History] Furosemide [Lasix] 20 mg PO DAILY 03/27/21 [History] Omeprazole 20 mg PO DAILY 03/27/21 [History] Phenytoin Sodium Extended [Dilantin] 200 mg PO BID 03/27/21 [History] Sertraline [Zoloft] 100 mg PO BID 03/27/21 [History] traZODone HCL 100 mg PO HS 03/27/21 [History] Follow up Appointment(s)/Referral(s): Dipesh Oswald MD [Primary Care Provider] - 1-2 days
[2021-03-31] MEDS: traZODone HCL 100 MG TAB PO SCH (20:21)
[2021-03-31] MEDS: ATORVASTATIN 40 MG TAB PO SCH (20:21)
[2021-03-31] MEDS: HYDROCORTISONE SUPPOSITORY 25 MG SUPP RECTAL SCH (20:22)
[2021-03-31] MEDS ORDERED: traZODone HCL 100 MG TAB PO SCH (21:00)
[2021-04-01] MEDS: metroNIDAZOLE-NS PMX 500 MG in SALINE 1 100ML.BAG IVPB SCH ×3 (04:55→17:38)
[2021-04-01] MEDS: SODIUM CHLORIDE 0.9% 1,000 ML IV SCH ×3 (06:24→20:48)
[2021-04-01] MEDS: PANTOPRAZOLE 40 MG/10 ML VIAL IV SCH (10:03)
[2021-04-01] MEDS: FUROSEMIDE 20 MG TAB PO SCH (10:03)
[2021-04-01] MEDS: ARIPiprazole 5 MG TAB PO SCH (10:04)
[2021-04-01] MEDS: SERTRALINE 100 MG TAB PO SCH ×2 (10:05→20:46)
[2021-04-01] MEDS: PHENYTOIN SODIUM EXTENDED 100 MG CAP PO SCH ×2 (10:05→20:46)
[2021-04-01] MEDS: HYDROCORTISONE SUPPOSITORY 25 MG SUPP RECTAL SCH ×2 (10:06→20:47)
--- NOTE | 2021-04-01 11:04 | P.CONS ---
History of Present Illness - Chief Complaint Medical debility - History of Present Illness I had the opportunity to see patient for inpatient rehab consultation with regard to medical debility. Patient admitted to [facility] March 27 with lower GI bleed, bleeding of 3 days' duration. Seen by Dr. Waldron who notes left lower quadrant discomfort. Did undergo colonoscopy with polypectomy. Was seen by cardiology for known heart disease and hypertension. Note computed tomography scan of abdomen and pelvis demonstrated no significant and modality. PT and OT prescribed. Previous functional history as elicited patient: 70-year-old was right now ambidextrous white female who is lives in a first-floor apartment alone. Retired. Son or her kids to cooking, laundry, driving. Patient did receive assistance from [facility] for sitdown shower. Otherwise independent with dressing and gait with [address] Oswald. Note patient initially right- handed but because of surgery and deformities right ring and fifth finger she is now functionally ambidextrous. Review of Systems Review of systems: ENT: Denies sneezes or discharge. Eyes: Denies discharge or photophobia. Cardiac: Denies chest pain or palpitation. Pulmonary: Denies cough or shortness of breath. Breast: Denies discharge or lumps. Gastrointestinal: Mild GI discomfort. Genitourinary: Denies discharge or frequency. Musculoskeletal: Arthritic changes with limitations throughout especially in cluding hands. Neurologic: Generalized weakness. Endocrine: Denies shakes or sweats. Oncology: Denies cancers. Dermatologic: Denies rash, itching, pruritus. ALLERGY/immunology: Denies sneezes, rashes. Past Medical History Past Medical History: COPD, Hyperlipidemia, Hypertension History of Any Multi-Drug Resistant Organisms: None Reported Past Surgical History: Appendectomy, Hysterectomy, Orthopedic Surgery, Tonsillectomy Additional Past Surgical History / Comment(s): right hand, right/left shoulder Past Psychological History: Anxiety Smoking Status: Former smoker Past Alcohol Use History: Daily Past Drug Use History: None Reported Medications and Allergies Home Medications Medication Instructions Recorded Confirmed Type ARIPiprazole [Abilify] 5 mg PO DAILY 03/27/21 03/27/21 History Aspirin EC [Ecotrin] 325 mg PO DAILY 03/27/21 03/27/21 History Atorvastatin [Lipitor] 40 mg PO HS 03/27/21 03/27/21 History Furosemide [Lasix] 20 mg PO DAILY 03/27/21 03/27/21 History Omeprazole 20 mg PO DAILY 03/27/21 03/27/21 History Phenytoin Sodium Extended 200 mg PO BID 03/27/21 03/27/21 History [Dilantin] Sertraline [Zoloft] 100 mg PO BID 03/27/21 03/27/21 History traZODone HCL 100 mg PO HS 03/27/21 03/27/21 History Allergies Allergy/AdvReac Type Severity Reaction Status Date / Time Penicillins Allergy Rash/Hives Verified 03/27/21 12:56 Physical Exam Vitals: Vital Signs Temp Pulse Pulse Pulse Resp BP Pulse Ox 04/01/21 07:55 98.4 F 70 18 118/66 99 04/01/21 00:53 98.2 F 87 18 115/68 98 03/31/21 19:22 98.3 F 86 20 100/62 98 03/31/21 16:07 74 75 24 03/31/21 14:05 97.8 F 92 90 24 128/62 98 Intake and Output 03/31/21 04/01/21 04/01/21 22:59 06:59 14:59 Intake Total 10 59 Output Total 1 Balance 9 59 Intake: IV 10 Invasive Line 2 10 Oral 0 59 Output: Stool 1 Other: Voiding Method Bedside Commode # Voids 1 1 # Bowel Movements 1 1 Skin: Atrophic, intact. General: Medium build and comfortable appearance. Head: Normocephalic, atraumatic. Eyes: Symmetric. Pupils equal round. Ears: Symmetric. Hearing within normal limits. Mouth: Clear. Neck: Supple. Carotid without bruit. Cardiac: Regular rate and rhythm. Lungs: Clear anteriorly and posteriorly. Abdomen: Soft active nontender. Extremities: Normal tone. Marked arthritic changes throughout with contractures right fourth and fifth fingers. Neurological: Mental status: Alert, cooperative, pleasant. Cranial nerves: Symmetric facial tone and trapezius. Motor: Can actively elevate arms but at best antigravity. Legs are definitely less than antigravity. Sensation: Intact throughout. DTRs: Symmetric and equal throughout. Mobility: Requires assistance for any mobility. Results CBC & Chem 7: 03/31/21 06:03 03/31/21 06:03 Assessment and Plan (1) GI bleed Current Visit: Yes Status: Acute Priority: High Code(s): K92.2 - GASTROINTESTINAL HEMORRHAGE, UNSPECIFIED SNOMED Code(s): 98631909 (2) Hypertensive heart disease Current Visit: Yes Status: Acute Code(s): I11.9 - HYPERTENSIVE HEART DISEASE WITHOUT HEART FAILURE SNOMED Code(s): 55046295 Plan: Impression: 1. Medical debility. 2. GI bleed status post polypectomy. 3. Hypertension. 4. Probably osteoarthritis. 5. Dyslipidemia. 6. COPD. comments and plan: At this time he discussed with therapy that I over heard therapies discussing the patient do well and may be ready for return to home. Patient is concerned about this as she feels too weak with the recent GI bleeding. I will follow for formal therapy notes. Have also begun to discuss insurance criteria as well as the rules and regulations. Should begin to consider alternative discharge plan such as SNF.
[2021-04-01 13:07] LABS: Basophils # (A) 0.03 X 10*3/uL (0.00-0.10); Basophils % (A) 0.5 %; Eosinophils % (A) 1.5 %; Lymphocytes # (A) 1.01 X 10*3/uL (0.90-5.00); Lymphocytes % (A) 15.4 %; MCH 35.9 pg (27.0-32.0); MCHC 32.1 g/dL (32.0-37.0); MCV 111.6 fL (80.0-97.0); Mean Platelet Volume 10.1 fL (9.5-12.2); Monocytes # (A) 0.58 X 10*3/uL (0.20-1.00); Monocytes % (A) 8.8 %; Neutrophils # (A) 4.82 X 10*3/uL (1.80-7.70); Neutrophils % (A) 73.5 %; Platelet Count 182 X 10*3/uL (140-440); RBC 2.51 X 10*6/uL (4.10-5.20); RDW 13.7 % (11.5-14.5); WBC 6.56 X 10*3/uL (4.50-10.00)
--- NOTE | 2021-04-01 13:34 | P.PN ---
Subjective Progress Note Date: 04/01/21 CHIEF COMPLAINT: GI bleed HISTORY OF PRESENT ILLNESS: The patient is a 70 year old female who is admitted with bleeding from the rectum. She is status post lower endoscopy with features of localized segmental colitis including internal hemorrhoids. She reports chronic diarrhea. Nurse documentation confirmed since been blood in stools. Patient reports moderate improvement of blood in stools. REVIEW OF ORGAN SYSTEMS: No shortness of breath. No fevers or chills. PHYSICAL EXAM: VITALS: Reviewed CONSTITUTIONAL: Well developed and in no acute distress. EYES: Conjuctivae without sclera icterus. Extraocular movements grossly intact. HEAD, EARS, NOSE, THROAT: Moist buccal mucosa. Head is atraumatic, normocephalic. Hears conversational speech. No nasal drainage. RESPIRATORY: Non-labored respirations and equal bilateral excursions. No gross wheezes. CARDIOVASCULAR: 2+ radial pulses. ABDOMEN: No peritonitis. Non-tender. MUSCULOSKELETAL: Nail and fingers with good capillary refill. SKIN: Warm and well perfused with good skin turgor. NEUROLOGIC: Cranial nerves II through XII grossly intact. No focal or lateralizing signs. PSYCH: Appropriate affect. Alert and oriented to person, place and time. Displays appropriate insight. CLINCAL LABS: Reviewed. Hemoglobin 12.0 now 10.0. ASSESSMENT: 1. Gastrointestinal bleed 2. Left lower quadrant abdominal pain 3. Transient tachycardia 4. Hyokalemia 5. Hyomagnesia PLAN: 1. Patient has been low caloric diets over 4 days. Recommend high protein low fiber diet 2. Flagyl 500 mg 3 times daily for colitis 3. Recommend elective acidophilus including yogurt to replenish colonic azeb Objective - Vital Signs Vital signs: Vital Signs Temp 98.4 F 04/01/21 07:55 Pulse 78 04/01/21 08:00 Resp 18 04/01/21 08:00 BP 118/66 04/01/21 07:55 Pulse Ox 99 04/01/21 07:55 Intake & Output 03/31/21 04/01/21 04/01/21 18:59 06:59 18:59 Intake Total 800 10 59 Output Total 1 1 Balance 799 10 58 Intake: IV 800 10 Invasive Line 2 10 Oral 0 59 Output: Stool 1 1 Other: Voiding Method Bedside Commode Bedside Commode Bedside Commode # Voids 1 1 # Bowel Movements 1 1 - Labs CBC & Chem 7: 10/21/21 07:07 03/31/21 06:03 Labs: Abnormal Lab Results - Last 24 Hours (Table) 04/01/21 Range/Units 07:07 RBC 2.51 L (4.10-5.20) X 10*6/uL Hgb 9.0 L (12.0-15.0) g/dL Hct 28.0 L (37.2-46.3) % MCV 111.6 H (80.0-97.0) fL MCH 35.9 H (27.0-32.0) pg Assessment and Plan (1) Hypertensive heart disease Current Visit: Yes Status: Acute Code(s): I11.9 - HYPERTENSIVE HEART DISEASE WITHOUT HEART FAILURE SNOMED Code(s): 87511489 (2) Seizure disorder Current Visit: Yes Status: Acute Code(s): G40.909 - EPILEPSY, UNSP, NOT INTRACTABLE, WITHOUT STATUS EPILEPTICUS SNOMED Code(s): 185409516 (3) GI bleed Current Visit: Yes Status: Acute Priority: High Code(s): K92.2 - GASTROINTESTINAL HEMORRHAGE, UNSPECIFIED SNOMED Code(s): 50156149 (4) Depressive disorder Current Visit: Yes Status: Acute Code(s): F32.9 - MAJOR DEPRESSIVE DISORDER, SINGLE EPISODE, UNSPECIFIED SNOMED Code(s): 62079022 (5) Tachyarrhythmia Current Visit: Yes Status: Acute Code(s): R00.0 - TACHYCARDIA, UNSPECIFIED SNOMED Code(s): 0890247
[2021-04-01 13:57] LABS: ALT 17 U/L (8-44); AST 31 U/L (13-35); African American GFR (CKD) 137.6 (60.0-200.0); Albumin 2.6 g/dL (3.8-4.9); Albumin/Globulin Ratio 1.35 (1.60-3.17); Alkaline Phosphatase 159 U/L (41-126); Blood Urea Nitrogen <2 mg/dL (9.0-27.0); Carbon Dioxide 22.6 mmol/L (21.6-31.8); Chloride 105 mmol/L (96-109); Globulin 1.9 g/dL (1.6-3.3); Glucose 100 mg/dL (70-110); Non-African American GFR(CKD) 118.7 (60.0-200.0); Potassium 3.1 mmol/L (3.5-5.5); Sodium 139 mmol/L (135-145); Total Protein 4.5 g/dL (6.2-8.2)
[2021-04-01] MEDS ORDERED: POTASSIUM BICARBONATE/CIT AC 20 MEQ TABLET.EFF PO ONE (16:00)
--- NOTE | 2021-04-01 16:07 | P.PN ---
Subjective Progress Note Date: 04/01/21 Principal diagnosis: GI bleed Patient is a 70-year-old female with a history of COPD, chronic hypoxic respiratory failure, hypertension, and dyslipidemia who presented with GI bleed. Colonoscopy showed internal and external hemorrhoids, polyp with polypectomy, and colitis. She was started on anusol and flagyl. Patient seen and examined at bedside. She complains of being weak and not being able to stand, she lives alone and states that she does not have family that is able to help. She states that her bleeding has stopped and her belly is feeling better. General: non toxic, no distress, appears at stated age Derm: warm, dry Head: atraumatic, normocephalic, symmetric Eyes: EOMI, no lid lag, anicteric sclera Mouth: no lip lesion, mucus membranes moist Cardiovascular: S1S2 tachycardic, no murmur, positive posterior tibial pulse bilateral, Lungs: Coarse breath sounds bilateral bilateral, no rhonchi, no rales , no accessory muscle use Abdominal: soft, nontender to palpation, no guarding, no appreciable organomegaly Ext: no gross muscle atrophy, no edema, no contractures Neuro: CN II-XI grossly intact, no focal neuro deficits Psych: Alert, oriented, appropriate affect GI bleed due to internal and external hemorrhoids, acute blood loss anemia Colitis - B12 and TSH normal, folate all within normal - flagyl D # 2 -Hemoglobin stable -continue to trend and transfuse if less than 7 -Avoid all anticoagulants and antiplatelets as well as NSAIDs -IV fluids Hypokalemia -oral replacement -Recheck this afternoon and in a.m. Sinus tachycardia, improving -cardio recs apprecaited: signed off - follow HR -2D echo shows normal LV function and size, no wall motion abnormalities Transaminitis -Evidence of fatty liver on CT -Continue to monitor, - outpatient follow-up History of COPD with chronic hypoxic respiratory failure -prn duonebs -On 2 L of oxygen at home Hypomagnesemia, reoslved Lactic acidosis, resolved DVT prophylaxis: SCDs Likely to SNF vs IPR in AM once insurance auth obtained Objective - Vital Signs Vital signs: Vital Signs Temp 98.2 F 04/01/21 14:35 Pulse 89 04/01/21 14:35 Resp 17 04/01/21 14:35 BP 124/71 04/01/21 14:35 Pulse Ox 98 04/01/21 14:35 Intake & Output 03/31/21 04/01/21 04/01/21 18:59 06:59 18:59 Intake Total 800 10 59 Output Total 1 1 Balance 799 10 58 Intake: IV 800 10 Invasive Line 2 10 Oral 0 59 Output: Stool 1 1 Other: Voiding Method Bedside Commode Bedside Commode Bedside Commode # Voids 1 1 1 # Bowel Movements 1 1 - Labs CBC & Chem 7: 04/01/21 07:07 04/01/21 07:07 Labs: Abnormal Lab Results - Last 24 Hours (Table) 04/01/21 04/01/21 Range/Units 07:07 07:07 RBC 2.51 L (4.10-5.20) X 10*6/uL Hgb 9.0 L (12.0-15.0) g/dL Hct 28.0 L (37.2-46.3) % MCV 111.6 H (80.0-97.0) fL MCH 35.9 H (27.0-32.0) pg Potassium 3.1 L (3.5-5.5) mmol/L Creatinine 0.3 L (0.6-1.5) mg/dL Calcium 8.0 L (8.7-10.3) mg/dL Alkaline Phosphatase 159 H (41-126) U/L Total Protein 4.5 L (6.2-8.2) g/dL Albumin 2.6 L (3.8-4.9) g/dL Albumin/Globulin Ratio 1.35 L (1.60-3.17) g/dL
[2021-04-01] MEDS: traZODone HCL 100 MG TAB PO SCH (20:46)
[2021-04-01] MEDS: ATORVASTATIN 40 MG TAB PO SCH (20:46)
[2021-04-01] MEDS: LACTOBACILLUS ACIDOPH & BULGAR 1 EACH PACKET PO SCH (20:47)
[2021-04-02] MEDS: metroNIDAZOLE-NS PMX 500 MG in SALINE 1 100ML.BAG IVPB SCH ×3 (00:36→11:58)
--- NOTE | 2021-04-02 07:06 | P.PN ---
Progress Note - Text Reviewed therapy notes. Safety concerns and ability to tolerate and benefit from therapies noted. Will aaccept for IPR, will need insurance authorization.
[2021-04-02] MEDS ORDERED: PANTOPRAZOLE 40 MG TABLET PO SCH (07:30)
[2021-04-02] MEDS: SODIUM CHLORIDE 0.9% 1,000 ML IV SCH (08:15)
[2021-04-02] MEDS: FUROSEMIDE 20 MG TAB PO SCH (08:17)
[2021-04-02] MEDS: LACTOBACILLUS ACIDOPH & BULGAR 1 EACH PACKET PO SCH (08:17)
[2021-04-02] MEDS: PHENYTOIN SODIUM EXTENDED 100 MG CAP PO SCH (08:17)
[2021-04-02] MEDS: ARIPiprazole 5 MG TAB PO SCH (08:17)
[2021-04-02] MEDS: HYDROCORTISONE SUPPOSITORY 25 MG SUPP RECTAL SCH (08:17)
[2021-04-02] MEDS: SERTRALINE 100 MG TAB PO SCH (08:17)
[2021-04-02] MEDS: LACTATED RINGERS 1,000 ML IV SCH (08:24)
[2021-04-02 12:01] VITALS: BMI 27.4
--- NOTE | 2021-04-02 14:06 | P.DS ---
Providers Date of admission: 03/28/21 18:29 Attending physician: Camden Donis MD Consults: 03/27/21 12:42 Consult Physician Urgent Consulting Provider: Abby Guillen Consult Reason/Comments: GI bleed Do you want consulting provider notified?: Already Contacted 04/01/21 09:58 Consult Physician Routine Consulting Provider: Pardeep Contreras Consult Reason/Comments: weakness Do you want consulting provider notified?: Yes Primary care physician: Dipesh Oswald MD Hospital Course: Discharge Diagnosis acute blood loss anemia in the setting of lower GI bleed likely due to external hemorrhoids Acute blood loss anemia Hypokalemia Sinus tachycardia Fatty liver disease Transaminitis History of COPD next on chronic respiratory failure on 2 L nasal cannula oxygen at home Discharge Summary Patient is a 70-year-old female with a history of COPD, chronic hypoxic respiratory failure, hypertension, and dyslipidemia who presented with GI bleed. Colonoscopy showed internal and external hemorrhoids, polyp with polypectomy, and colitis. She was started on anusol and flagyl. GI bleed due to internal and external hemorrhoids, acute blood loss anemia procedure done was negative no evidence of any acute findings patient initially started on Flagyl with a concern for colitis, now discontinued. hemoglobin currently stable -avoid anticoagulant and antiplatelet NSAIDs -Continue Anusol cream -Follow with primary care physician after discharge Hypokalemia -Oral replacement -Cont as needed Sinus tachycardia, improving -2D echo shows normal LV function and size, no wall motion abnormalities -cardio recs apprecaited: signed off Transaminitis -Evidence of fatty liver on CT - outpatient follow-up History of COPD with chronic hypoxic respiratory failure -prn duonebs -On 2 L of oxygen at home Discharge day physical Exam Patient seen and examined at bedside. She complains of being weak and not being able to stand Vital Signs: Stable , reviewed General: non toxic, no distress, appears at stated age Head: atraumatic, normocephalic, symmetric Eyes: EOMI, no lid lag, anicteric sclera Mouth: no lip lesion, mucus membranes moist Cardiovascular: S1S2 tachycardic, no murmur, positive posterior tibial pulse bilateral, Lungs: Coarse breath sounds bilateral bilateral, no rhonchi, no rales , no accessory muscle use Abdominal: soft, nontender to palpation, no guarding, no appreciable organomegaly Ext: no gross muscle atrophy, no edema, no contractures Neuro: CN II-XI grossly intact, no focal neuro deficits Patient Condition at Discharge: Stable Plan - Discharge Summary Discharge Rx Participant: No New Discharge Prescriptions: New Acetaminophen Tab [Tylenol] 650 mg PO Q6HR PRN tab PRN Reason: Mild Pain Or Fever > 100.5 Hydrocortisone Suppository [Anusol-Hc] 25 mg RECTAL BID supp Pantoprazole [Protonix] 40 mg PO AC-BRKFST tab Continue Phenytoin Sodium Extended [Dilantin] 200 mg PO BID Furosemide [Lasix] 20 mg PO DAILY ARIPiprazole [Abilify] 5 mg PO DAILY traZODone HCL 100 mg PO HS Sertraline [Zoloft] 100 mg PO BID Atorvastatin [Lipitor] 40 mg PO HS Discontinued Aspirin EC [Ecotrin] 325 mg PO DAILY Omeprazole 20 mg PO DAILY Discharge Medication List ARIPiprazole [Abilify] 5 mg PO DAILY 03/27/21 [History] Atorvastatin [Lipitor] 40 mg PO HS 03/27/21 [History] Furosemide [Lasix] 20 mg PO DAILY 03/27/21 [History] Phenytoin Sodium Extended [Dilantin] 200 mg PO BID 03/27/21 [History] Sertraline [Zoloft] 100 mg PO BID 03/27/21 [History] traZODone HCL 100 mg PO HS 03/27/21 [History] Acetaminophen Tab [Tylenol] 650 mg PO Q6HR PRN tab 04/02/21 [Rx] Hydrocortisone Suppository [Anusol-Hc] 25 mg RECTAL BID supp 04/02/21 [Rx] Pantoprazole [Protonix] 40 mg PO AC-BRKFST tab 04/02/21 [Rx] Follow up Appointment(s)/Referral(s): Dipesh Oswald MD [Primary Care Provider] - 1-2 days Discharge Disposition: TRANSFER TO SNF/ECF
[2021-04-02 14:32] VITALS: BP 131/72; PULSE 86; RESP 17; TEMP 98.4
--- NOTE | 2021-04-02 15:15 | P.PN ---
Subjective Progress Note Date: 04/02/21 CHIEF COMPLAINT: GI bleed HISTORY OF PRESENT ILLNESS: The patient is a 70 year old female who is admitted with bleeding from the rectum. She is status post lower endoscopy with features of localized segmental colitis including internal hemorrhoids. She reports chronic diarrhea. As reports still having 7-8 loose bowel movements daily. Denies any blood in her stool today. She denies abdominal pain, nausea, or vomiting. REVIEW OF ORGAN SYSTEMS: No shortness of breath. No fevers or chills. PHYSICAL EXAM: VITALS: Reviewed CONSTITUTIONAL: Well developed and in no acute distress. EYES: Conjuctivae without sclera icterus. Extraocular movements grossly intact. HEAD, EARS, NOSE, THROAT: Moist buccal mucosa. Head is atraumatic, normocephalic. Hears conversational speech. No nasal drainage. RESPIRATORY: Non-labored respirations and equal bilateral excursions. No gross wheezes. CARDIOVASCULAR: 2+ radial pulses. ABDOMEN: Soft. Non-tender. Nondistended. MUSCULOSKELETAL: Nail and fingers with good capillary refill. SKIN: Warm and well perfused with good skin turgor. NEUROLOGIC: Cranial nerves II through XII grossly intact. No focal or lateralizing signs. PSYCH: Appropriate affect. Alert and oriented to person, place and time. Displays appropriate insight. CLINCAL LABS: Reviewed. Hemoglobin 12.0 now 10.0. ASSESSMENT: 1. Gastrointestinal bleed 2. Left lower quadrant abdominal pain 3. Transient tachycardia 4. Hyokalemia 5. Hyomagnesia PLAN: 1. Patient has been low caloric diets over 4 days. Recommend high protein low fiber diet 2. Flagyl 500 mg 3 times daily for colitis 3. Recommend elective acidophilus including yogurt to replenish colonic azeb 4. Patient is cleared for discharge from Gen. surgery was otherwise medically stable The impression and plan of care has been dictated as directed. I performed a history and examination of this patient, discussed the same with the dictator. I agree with the dictator's note ,documented as a scribe. Any additional findings or plans will be noted. Objective - Vital Signs Vital signs: Vital Signs Temp 98.4 F 04/02/21 14:30 Pulse 86 04/02/21 14:32 Resp 17 04/02/21 14:30 BP 131/72 04/02/21 14:30 Pulse Ox 98 04/02/21 14:51 Intake & Output 04/01/21 04/02/21 04/02/21 18:59 06:59 18:59 Intake Total 859 320 Output Total 1 350 Balance 858 -30 Weight 68.039 kg Intake: Oral 259 320 Tube Feeding 600 Output: Urine 350 Stool 1 Other: Voiding Method Bedside Commode # Voids 2 4 # Bowel Movements 1 4 0 - Labs CBC & Chem 7: 04/01/21 07:07 04/01/21 07:07
== END 2021-04-02 14:40 | DRG 394 ==
LOC: EC 09:13 → 6NMEDSUR 12:47 → OBSVTOIN 03-28 18:29
PROVIDERS: ADMIT Internal Medicine; ATTEND Internal Medicine
PROC: 0DB78ZX Excision of Stomach, Pylorus, Via Natural or Artificial Opening Endoscopic, Diagnostic (ICD-10-PCS; principal; 2021-03-31 10:45)
PROC: 0DBK8ZX Excision of Ascending Colon, Via Natural or Artificial Opening Endoscopic, Diagnostic (ICD-10-PCS; 2021-03-31 10:45)
PROC: 0DBK8ZZ Excision of Ascending Colon, Via Natural or Artificial Opening Endoscopic (ICD-10-PCS; 2021-03-31 10:45)
DX: K64.3 Fourth degree hemorrhoids (principal); D62 Acute posthemorrhagic anemia; E87.2 Acidosis; I48.92 Unspecified atrial flutter; J96.11 Chronic respiratory failure with hypoxia; K22.10 Ulcer of esophagus without bleeding; K64.8 Other hemorrhoids; D12.4 Benign neoplasm of descending colon; E78.5 Hyperlipidemia, unspecified; E83.42 Hypomagnesemia; E87.6 Hypokalemia; F32.9 Major depressive disorder, single episode, unspecified; F41.9 Anxiety disorder, unspecified; G40.909 Epilepsy, unspecified, not intractable, without status epilepticus; J44.9 Chronic obstructive pulmonary disease, unspecified; J98.01 Acute bronchospasm; K44.9 Diaphragmatic hernia without obstruction or gangrene; I11.9 Hypertensive heart disease without heart failure; K52.9 Noninfective gastroenteritis and colitis, unspecified; K57.30 Diverticulosis of large intestine without perforation or abscess without bleeding; K64.4 Residual hemorrhoidal skin tags; K76.0 Fatty (change of) liver, not elsewhere classified; M19.90 Unspecified osteoarthritis, unspecified site; Z53.09 Procedure and treatment not carried out because of other contraindication; Z79.82 Long term (current) use of aspirin; Z79.899 Other long term (current) drug therapy; Z87.891 Personal history of nicotine dependence; Z90.710 Acquired absence of both cervix and uterus; K64.2 Third degree hemorrhoids; R00.0 Tachycardia, unspecified
CPT/HCPCS: 36415; 43235; 45380; 45385; 74177; 80048; 80053; 82272; 82607; 82747; 83605; 83690; 83735; 84443; 84484; 85025; 85027; 85610; 85730; 86850; 86900; 86901; 87324; 88305; 93306; 94760; 96374; 99285

== ENCOUNTER 2021-04-06 07:02 | Emergency (ER) | payer MEDICARE ==
[2021-04-06 07:30] VITALS: RESP 18; TEMP 97.1
--- NOTE | 2021-04-06 07:32 | ED ---
General Adult HPI - General Chief complaint: Recheck/Abnormal Lab/Rx Stated complaint: Low Potassium Time Seen by Provider: 04/06/21 07:03 Source: patient, EMS, RN notes reviewed, old records reviewed Mode of arrival: EMS Limitations: no limitations - History of Present Illness Initial comments: 70-year-old female presented from the custodial for evaluation of low potassium. Patient had outpatient lab testing was found to have a potassium which she reports is 2.2. She had recent admission for GI bleed which has resolved according to the patient. She states she had some episodes of low potassium IN THE HOSPITAL BUT THIS HAD CORRECTED ITSELF. SHE DENIES CURRENT DIURETIC USE. SHE DENIES ANY SYMPTOMS, NO CHEST PAIN OR DYSPNEA. NO FEVER. NO NAUSEA VOMITING OR DIARRHEA. - Related Data Home Medications Medication Instructions Recorded Confirmed ARIPiprazole [Abilify] 5 mg PO DAILY 03/27/21 03/27/21 Atorvastatin [Lipitor] 40 mg PO HS 03/27/21 03/27/21 Furosemide [Lasix] 20 mg PO DAILY 03/27/21 03/27/21 Phenytoin Sodium Extended 200 mg PO BID 03/27/21 03/27/21 [Dilantin] Sertraline [Zoloft] 100 mg PO BID 03/27/21 03/27/21 traZODone HCL 100 mg PO HS 03/27/21 03/27/21 Previous Rx's Medication Instructions Recorded Acetaminophen Tab [Tylenol] 650 mg PO Q6HR PRN tab 04/02/21 Hydrocortisone Suppository 25 mg RECTAL BID supp 04/02/21 [Anusol-Hc] Pantoprazole [Protonix] 40 mg PO AC-BRKFST tab 04/02/21 metroNIDAZOLE [Flagyl] 500 mg PO TID #30 tab 04/02/21 Potassium Chloride ER [K-Dur 20] 20 meq PO BID 5 Days #10 tab 04/06/21 Allergies Allergy/AdvReac Type Severity Reaction Status Date / Time Penicillins Allergy Rash/Hives Verified 04/06/21 07:30 Review of Systems ROS Statement: Those systems with pertinent positive or pertinent negative responses have been documented in the HPI. ROS Other: All systems not noted in ROS Statement are negative. Past Medical History Past Medical History: COPD, Hyperlipidemia, Hypertension History of Any Multi-Drug Resistant Organisms: None Reported Past Surgical History: Appendectomy, Hysterectomy, Orthopedic Surgery, Tonsillectomy Additional Past Surgical History / Comment(s): right hand, right/left shoulder Past Psychological History: Anxiety Smoking Status: Former smoker Past Alcohol Use History: Daily Past Drug Use History: None Reported General Exam Limitations: no limitations General appearance: alert, in no apparent distress Head exam: Present: atraumatic, normocephalic Eye exam: Present: normal appearance, PERRL ENT exam: Present: normal exam Neck exam: Present: normal inspection. Absent: tenderness Respiratory exam: Present: normal lung sounds bilaterally. Absent: respiratory distress, wheezes Cardiovascular Exam: Present: regular rate, normal rhythm GI/Abdominal exam: Present: soft. Absent: distended, tenderness Extremities exam: Present: normal inspection, normal capillary refill. Absent: pedal edema Neurological exam: Present: alert, oriented X3, CN II-XII intact. Absent: motor sensory deficit Psychiatric exam: Present: normal affect, normal mood Skin exam: Present: warm, dry, intact. Absent: cyanosis, diaphoretic, erythema Course Vital Signs 04/06/21 07:16 Temperature 97.1 F L Pulse Rate 80 Respiratory 18 Rate Blood Pressure 124/68 O2 Sat by Pulse 98 Oximetry EKG Findings - EKG Comments: EKG Findings:: EKG: Normal sinus rhythm, low voltage, rate of 79, RI interval 152, QRS duration 78, QTC 580 Medical Decision Making - Medical Decision Making 70-year-old female who had presented with abnormal outpatient lab testing. Her repeat potassium in the department is 2.8. She's given 40 mEq oral and 30 mEq IV. She has no complaints. Vital signs are stable. Her hemoglobin is improved from prior with recent history of GI bleed. She will be discharged back to [facility] where her potassium should be monitored. She will be given potassium supplementation for the next 5 days awaiting redraw. - Lab Data Result diagrams: 04/06/21 07:34 04/06/21 07:34 Lab Results 04/06/21 04/06/21 04/06/21 Range/Units 07:34 07:34 07:34 WBC 8.6 (3.8-10.6) k/uL RBC 3.19 L (3.80-5.40) m/uL Hgb 11.4 (11.4-16.0) gm/dL Hct 34.4 (34.0-46.0) % MCV 108.0 H D (80.0-100.0) fL MCH 35.8 H (25.0-35.0) pg MCHC 33.2 (31.0-37.0) g/dL RDW 13.6 (11.5-15.5) % Plt Count 391 D (150-450) k/uL MPV 7.3 Neutrophils % 74 % Lymphocytes % 17 % Monocytes % 6 % Eosinophils % 2 % Basophils % 0 % Neutrophils # 6.3 (1.3-7.7) k/uL Lymphocytes # 1.5 (1.0-4.8) k/uL Monocytes # 0.5 (0-1.0) k/uL Eosinophils # 0.1 (0-0.7) k/uL Basophils # 0.0 (0-0.2) k/uL Macrocytosis Moderate PT 10.1 (9.0-12.0) sec INR 0.9 (<1.2) APTT 21.0 L (22.0-30.0) sec Sodium 137 (137-145) mmol/L Potassium 2.8 L (3.5-5.1) mmol/L Chloride 101 (98-107) mmol/L Carbon Dioxide 28 (22-30) mmol/L Anion Gap 8 mmol/L BUN 7 (7-17) mg/dL Creatinine 0.32 L (0.52-1.04) mg/dL Est GFR (CKD-EPI)AfAm >90 (>60 ml/min/1.73 sqM) Est GFR (CKD-EPI)NonAf >90 (>60 ml/min/1.73 sqM) Glucose 106 H (74-99) mg/dL Calcium 9.1 (8.4-10.2) mg/dL Magnesium 1.6 (1.6-2.3) mg/dL Total Bilirubin 0.3 (0.2-1.3) mg/dL AST 29 (14-36) U/L ALT 11 (4-34) U/L Alkaline Phosphatase 163 H (38-126) U/L Total Protein 5.8 L (6.3-8.2) g/dL Albumin 3.0 L (3.5-5.0) g/dL Disposition Clinical Impression: Hypokalemia Disposition: HOME SELF-CARE Condition: Fair Instructions (If sedation given, give patient instructions): Hypokalemia (ED) Prescriptions: Potassium Chloride ER [K-Dur 20] 20 meq PO BID 5 Days #10 tab Is patient prescribed a controlled substance at d/c from ED?: No Referrals: Dipesh Oswald MD [Primary Care Provider] - 1-2 days Time of Disposition: 09:30
[2021-04-06 08:27] LABS: Basophils % (A) 0 %; Eosinophils # (A) 0.1 k/uL (0-0.7); Eosinophils % (A) 2 %; HCT 34.4 % (34.0-46.0); HGB 11.4 gm/dL (11.4-16.0); Lymphocytes # (A) 1.5 k/uL (1.0-4.8); Lymphocytes % (A) 17 %; MCH 35.8 pg (25.0-35.0); MCHC 33.2 g/dL (31.0-37.0); Macrocytosis Moderate; Mean Platelet Volume 7.3; Monocytes # (A) 0.5 k/uL (0-1.0); Monocytes % (A) 6 %; Neutrophils # (A) 6.3 k/uL (1.3-7.7); Neutrophils % (A) 74 %; RBC 3.19 m/uL (3.80-5.40); RDW 13.6 % (11.5-15.5); WBC 8.6 k/uL (3.8-10.6)
[2021-04-06 08:28] LABS: ALT 11 U/L (4-34); AST 29 U/L (14-36); African American GFR (CKD) >90 (>60 ml/min/1.73 sqM); Alkaline Phosphatase 163 U/L (38-126); Anion Gap 8 mmol/L; Blood Urea Nitrogen 7 mg/dL (7-17); Calcium 9.1 mg/dL (8.4-10.2); Carbon Dioxide 28 mmol/L (22-30); Chloride 101 mmol/L (98-107); Glucose 106 mg/dL (74-99); Magnesium 1.6 mg/dL (1.6-2.3); Non-African American GFR(CKD) >90 (>60 ml/min/1.73 sqM); Potassium 2.8 mmol/L (3.5-5.1); Sodium 137 mmol/L (137-145); Total Bilirubin 0.3 mg/dL (0.2-1.3); Total Protein 5.8 g/dL (6.3-8.2)
[2021-04-06 08:36] LABS: INR 0.9 (<1.2); Prothrombin Time 10.1 sec (9.0-12.0)
[2021-04-06] MEDS ORDERED: POTASSIUM CHLORIDE ER 20 MEQ TAB.ER PO STA (08:43)
[2021-04-06 08:46] LABS: Platelet Count 391 k/uL (150-450)
[2021-04-06] MEDS: POTASSIUM CHLORIDE 10 MEQ in WATER FOR INJECTION 1 100ML.BAG IVPB SCH ×3 (09:10→12:12)
[2021-04-06 14:19] VITALS: BP 114/60; PULSE 82
== END 2021-04-06 14:46 | disposition home or self-care (01) ==
LOC: EC 07:02
DX: E87.6 Hypokalemia (principal); J44.9 Chronic obstructive pulmonary disease, unspecified; E78.5 Hyperlipidemia, unspecified; I10 Essential (primary) hypertension; F41.9 Anxiety disorder, unspecified; Z88.0 Allergy status to penicillin; Z90.49 Acquired absence of other specified parts of digestive tract; Z90.710 Acquired absence of both cervix and uterus; Z87.891 Personal history of nicotine dependence; Z79.899 Other long term (current) drug therapy
CPT/HCPCS: 99285; 96365; 96366 ×3; 36415; 93005; 80053; 83735; 85025; 85610; 85730; J3480

== ENCOUNTER 2021-04-19 22:28 | Inpatient (IN) | payer MEDICARE ==
[2021-04-19] MEDS ORDERED: MORPHINE SULFATE 4 MG/ML SYRINGE IV STA (22:56)
--- NOTE | 2021-04-19 23:05 | ED ---
Lower Extremity Injury HPI - General Chief Complaint: Extremity Injury, Lower Stated Complaint: L Knee Swelling Time Seen by Provider: 04/19/21 22:30 Source: patient, EMS Limitations: physical limitation - History of Present Illness Initial Comments: This patient is a 70-year-old woman coming from assisted to be evaluated for left pain and swelling. Patient states that she noticed the swelling developing since Monday. She does not recall having any injury or trauma to the knee. She has had increasing pain as well. States the pain is worse with any attempted flexion or extension of the knee or trying to put weight on her leg. She has not noted any systemic symptoms, no fever or chills, chest pain, palpitations, lightheadedness, dyspnea or diaphoresis. MD Complaint: knee injury -: days(s) Injury: Knee: Left Type of Injury: unknown Place: home Severity: mild Improves With: nothing Worsens With: movement, palpation Associated Symptoms: swelling, unable to bear weight - Related Data Home Medications Medication Instructions Recorded Confirmed ARIPiprazole [Abilify] 5 mg PO DAILY@0900 03/27/21 04/06/21 Atorvastatin [Lipitor] 40 mg PO HS@2100 03/27/21 04/06/21 Furosemide [Lasix] 20 mg PO DAILY@0900 03/27/21 04/06/21 Phenytoin Sodium Extended 200 mg PO BID@0900,209903/27/21 04/06/21 [Dilantin] Sertraline [Zoloft] 100 mg PO BID@0900,2100 03/27/21 04/06/21 traZODone HCL 100 mg PO HS@2100 03/27/21 04/06/21 Hydrocortisone Suppository 25 mg RECTAL BID@0900,209904/06/21 04/06/21 [Anusol-Hc] Omeprazole 20 mg PO HS@2100 04/06/21 04/06/21 metroNIDAZOLE [Flagyl] 500 mg PO TID@0900,1300,209904/06/21 04/06/21 Previous Rx's Medication Instructions Recorded Acetaminophen Tab [Tylenol] 650 mg PO Q6HR PRN tab 04/02/21 Potassium Chloride ER [K-Dur 20] 20 meq PO BID 5 Days #10 tab 04/06/21 Allergies Allergy/AdvReac Type Severity Reaction Status Date / Time Penicillins Allergy Rash/Hives Verified 04/19/21 22:38 Review of Systems ROS Statement: Those systems with pertinent positive or pertinent negative responses have been documented in the HPI. ROS Other: All systems not noted in ROS Statement are negative. Constitutional: Denies: fever, chills, weakness Respiratory: Denies: cough, dyspnea Cardiovascular: Denies: chest pain, palpitations Gastrointestinal: Denies: abdominal pain, nausea, vomiting Genitourinary: Denies: dysuria, hematuria Musculoskeletal: Reports: as per HPI, joint swelling, arthralgia Skin: Denies: rash Neurological: Denies: headache, weakness, numbness Past Medical History Past Medical History: COPD, Hyperlipidemia, Hypertension History of Any Multi-Drug Resistant Organisms: None Reported Past Surgical History: Appendectomy, Hysterectomy, Orthopedic Surgery, Tonsillectomy Additional Past Surgical History / Comment(s): right hand, right/left shoulder Past Psychological History: Anxiety Smoking Status: Former smoker Past Alcohol Use History: Occasional Past Drug Use History: None Reported General Exam Limitations: physical limitation General appearance: alert, in no apparent distress Head exam: Present: atraumatic, normocephalic Neck exam: Present: normal inspection, full ROM Respiratory exam: Present: normal lung sounds bilaterally. Absent: respiratory distress, wheezes, rales, rhonchi, stridor Cardiovascular Exam: Present: regular rate, normal rhythm, normal heart sounds. Absent: systolic murmur, diastolic murmur, rubs, gallop GI/Abdominal exam: Present: soft. Absent: tenderness, guarding, rebound Extremities exam: Present: tenderness, normal capillary refill, joint swelling. Absent: full ROM, pedal edema, calf tenderness Left Upper Leg exam: Present: normal inspection, full ROM. Absent: tenderness, swelling Knee exam: Present: tenderness, swelling, effusion. Absent: full ROM, abrasion, laceration, ecchymosis, deformity, crepitus, dislocation, erythema Lower Leg exam: Present: normal inspection, full ROM. Absent: tenderness, swelling Neurological exam: Present: alert. Absent: motor sensory deficit Skin exam: Present: warm, dry, intact, normal color. Absent: rash Course Vital Signs 04/19/21 22:32 Temperature 99.6 F Pulse Rate 96 Respiratory 18 Rate Blood Pressure 122/66 O2 Sat by Pulse 98 Oximetry Disposition Referrals: iDpesh Oswald MD [Primary Care Provider] - 1-2 days
[2021-04-19 23:55] LABS: Basophils # (A) 0.1 k/uL (0-0.2); Basophils % (A) 1 %; Eosinophils # (A) 0.1 k/uL (0-0.7); Eosinophils % (A) 1 %; HCT 35.7 % (34.0-46.0); HGB 11.8 gm/dL (11.4-16.0); Lymphocytes # (A) 1.6 k/uL (1.0-4.8); Lymphocytes % (A) 11 %; MCH 35.5 pg (25.0-35.0); MCV 107.6 fL (80.0-100.0); Macrocytosis Moderate; Mean Platelet Volume 7.3; Monocytes # (A) 0.9 k/uL (0-1.0); Monocytes % (A) 6 %; Neutrophils # (A) 11.8 k/uL (1.3-7.7); Neutrophils % (A) 80 %; Platelet Count 284 k/uL (150-450); RBC 3.32 m/uL (3.80-5.40); RDW 12.1 % (11.5-15.5); WBC 14.7 k/uL (3.8-10.6)
[2021-04-20 00:06] LABS: African American GFR (CKD) >90 (>60 ml/min/1.73 sqM); Anion Gap 8 mmol/L; Blood Urea Nitrogen 11 mg/dL (7-17); C Reactive Protein 4.8 mg/dL (<1.0); Calcium 9.6 mg/dL (8.4-10.2); Carbon Dioxide 22 mmol/L (22-30); Chloride 100 mmol/L (98-107); Glucose 120 mg/dL (74-99); Non-African American GFR(CKD) >90 (>60 ml/min/1.73 sqM); Potassium 4.4 mmol/L (3.5-5.1); Sodium 130 mmol/L (137-145)
[2021-04-20 00:47] LABS: Erythrocyte Sedimentation Rate 87 mm/hr (0-20)
[2021-04-20] MEDS ORDERED: LIDOCAINE 1% INJ 10MG/ML (20 ML MDV) SQ ONE ×2 (02:30→09:20)
[2021-04-20] MEDS ORDERED: MORPHINE SULFATE 4 MG/ML SYRINGE IV STA (03:37)
[2021-04-20 04:01] LABS: Appearance,BF Hazy; Color,BF Yellow; Nucleated Cells, Body Fluid 10920 /uL; RBC, Body Fluid 0 /uL
[2021-04-20 04:03] LABS: Mononuclear WBC,Body Fluid 3 %; Polynuclear WBC,Body Fluid 97 %; Total Cells Counted,Body Fluid 100
[2021-04-20] MEDS ORDERED: VANCOMYCIN IV PER PHARMACY 1 EACH MISC MISCELLANE PRN (04:08)
[2021-04-20] MEDS ORDERED: ACETAMINOPHEN TAB 325 MG TAB PO PRN (04:32)
[2021-04-20] MEDS ORDERED: NALOXONE 0.4 MG/ML 1 ML VIAL IV PRN (04:32)
[2021-04-20] MEDS ORDERED: HYDROmorphone 0.5 MG/0.5 ML SYRINGE IVP PRN (04:32)
[2021-04-20] MEDS ORDERED: IBUPROFEN 400 MG TAB PO PRN (04:32)
[2021-04-20] MEDS ORDERED: VANCOMYCIN 1,500 MG in SODIUM CHLORIDE 0.9% 250 ML IVPB ONE (05:00)
[2021-04-20] MEDS: SODIUM CHLORIDE 0.9% 1,000 ML IV SCH ×2 (06:26→18:18)
[2021-04-20] MEDS: FAMOTIDINE 20 MG TAB PO SCH ×2 (08:36→19:50)
--- NOTE | 2021-04-20 09:43 | XR ---
Left knee HISTORY: Pain, effusion 2 views the left knee, no comparisons Bone mineralization is reduced. Suprapatellar increased density is consistent with joint effusion. Th ere is mild spurring present at the patellofemoral joint, medial lateral compartments, lateral compar tment joint space narrowing is greatest. Alignment is maintained. No evident fracture or dislocation. Atherosclerotic vascular calcifications are noted. IMPRESSION: Osteopenia or osteoporosis, osteoarthritic changes with joint effusion.
[2021-04-20] MEDS: MORPHINE SULFATE 4 MG/ML SYRINGE IV PRN ×3 (10:13→19:49)
[2021-04-20 13:12] LABS: Glucose, BF Source Body Fluid; Glucose, Body Fluid 60 mg/dL; Total Protein, Body Fluid 3690 mg/dL
--- NOTE | 2021-04-20 13:19 | P.CNOR ---
History of Present Illness - HPI Consult date: 04/20/21 History of present illness: This is a 70-year-old female who is admitted for left knee pain. Patient states that she developed the pain on 04/16/2021. Patient states that she is currently at [facility] for rehabilitation following an admission in the hospital for GI bleed. Patient denies any injury to the left knee, but states that she has been doing a lot of physical therapy and this may have aggravated it. Patient states that her pain and swelling have progressively gotten worse and she cannot bear weight on the left lower extremity. Patient states that her left knee was aspirated in the emergency room, but they did not get much fluid out. Patient denies any fevers, numbness or tingling. Patient's past medical history significant for COPD, hyperlipidemia and hypertension. Patient denies any previous issues with her left knee. Review of Systems See HPI. Past Medical History Past Medical History: COPD, Hyperlipidemia, Hypertension History of Any Multi-Drug Resistant Organisms: None Reported Past Surgical History: Appendectomy, Hysterectomy, Orthopedic Surgery, Tonsillectomy Additional Past Surgical History / Comment(s): right hand, right/left shoulder Past Anesthesia/Blood Transfusion Reactions: No Reported Reaction Past Psychological History: Anxiety Smoking Status: Former smoker Past Alcohol Use History: Occasional Past Drug Use History: None Reported Medications and Allergies Home Medications Medication Instructions Recorded Confirmed Type ARIPiprazole [Abilify] 5 mg PO DAILY@0900 03/27/21 04/19/21 History Atorvastatin [Lipitor] 40 mg PO HS@2100 03/27/21 04/19/21 History Furosemide [Lasix] 20 mg PO DAILY@0900 03/27/21 04/19/21 History Acetaminophen Tab [Tylenol] 650 mg PO Q6HR PRN tab 04/02/21 04/19/21 Rx Hydrocortisone Suppository 25 mg RECTAL BID@0900,2100 04/06/21 04/19/21 History [Anusol-Hc] Acetaminophen-Codeine 300-30mg 1 tab PO Q6H PRN 04/20/21 04/20/21 History [Tylenol w/codeine #3] Omeprazole [PriLOSEC] 20 mg PO HS 04/20/21 04/20/21 History Ondansetron [Zofran] 4 mg PO Q8HR PRN 04/20/21 04/20/21 History Phenytoin Sodium Extended 100 mg PO BID 04/20/21 04/20/21 History [Dilantin] Potassium Chloride [Klor-Con 20] 20 meq PO DAILY@0900 04/20/21 04/20/21 History Sertraline [Zoloft] 100 mg PO BID 04/20/21 04/20/21 History traZODone HCL [Desyrel] 100 mg PO HS 04/20/21 04/20/21 History Allergies Allergy/AdvReac Type Severity Reaction Status Date / Time Penicillins Allergy Rash/Hives Verified 04/19/21 23:31 Physical Examination On exam patient is resting comfortably in bed in no acute distress. Patient is alert and oriented 3. On exam of the left knee there is a large effusion. There is no erythema and skin is intact. Patient has significant discomfort with any attempted motion of the left knee. Calf is soft and nontender to palpation. Patient has full range of motion of the left foot and ankle. Sensation intact. Neurovascular status and circulatory status are intact. Results X-rays of the left knee revealed moderate arthritic changes. No fracture or dislocation. - Labs Labs: Abnormal Lab Results - Last 24 Hours (Table) 04/19/21 04/19/21 Range/Units 23:33 23:33 WBC 14.7 H (3.8-10.6) k/uL RBC 3.32 L (3.80-5.40) m/uL MCV 107.6 H (80.0-100.0) fL MCH 35.5 H (25.0-35.0) pg Neutrophils # 11.8 H (1.3-7.7) k/uL ESR 87 H (0-20) mm/hr Sodium 130 L (137-145) mmol/L Creatinine 0.33 L (0.52-1.04) mg/dL Glucose 120 H (74-99) mg/dL C-Reactive Protein 4.8 H (<1.0) mg/dL H & H 04/19/21 Range/Units 23:33 Hgb 11.8 (11.4-16.0) gm/dL Hct 35.7 (34.0-46.0) % Result Diagrams: 04/19/21 23:33 04/19/21 23:33 Assessment and Plan (1) Left knee pain Current Visit: Yes Status: Acute Code(s): M25.562 - PAIN IN LEFT KNEE SNOMED Code(s): 3537352009 Plan: 1. X-rays of the left knee revealed moderate arthritic changes. No fracture or dislocation. 2. Procedure: Bedside aspiration left knee The skin overlying the left knee is prepped with ChloraPrep, and anesthetized with 5 mL of 1% lidocaine without epinephrine using a 21-gauge needle. Then an 18-gauge needle is used to aspirate the left knee and 42 mL of hazy yellow fluid was obtained. A clean dressing is applied along with a compressive Cameron wrap. The patient tolerated the procedure well. Synovial fluid is sent to the lab for evaluation. 3. Recommend rest, ice, compression and elevation. 4. No surgical intervention planned. We will continue to follow.
[2021-04-20 15:56] LABS: Appearance,BF Cloudy; Color,BF Yellow; Nucleated Cells, Body Fluid 14000 /uL; RBC, Body Fluid 175 /uL
--- NOTE | 2021-04-20 16:06 | P.HPIM ---
History of Present Illness H&P Date: 04/20/21 Chief Complaint: Left knee pain 70-year-old woman with history of recent hospitalization for GI bleed, colitis, COPD, hyperlipidemia and hypertension coming from residential to be evaluated for left knee pain and swelling. Patient states that started experiencing pain and swelling developing since Monday. She does not recall having any injury or trauma to the knee. The pain is worse with any attempted flexion or extension of the knee or trying to put weight on her leg. She has not noted any systemic symptoms, no fever or chills, chest pain, palpitations, lightheadedness, dyspnea or diaphoresis. Patient has history of rheumatoid arthritis and she is currently not on any treatment for it. She states that it rarely flares up on her. Patient was admitted for further management, was seen by orthopedic service who did arthrocentesis which showed calcium pyrophosphate crystals. Review of Systems Complete review of system performed, pertinent positives per HPI, otherwise negative Past Medical History Past Medical History: COPD, Hyperlipidemia, Hypertension History of Any Multi-Drug Resistant Organisms: None Reported Past Surgical History: Appendectomy, Hysterectomy, Orthopedic Surgery, Tonsillectomy Additional Past Surgical History / Comment(s): right hand, right/left shoulder Past Anesthesia/Blood Transfusion Reactions: No Reported Reaction Past Psychological History: Anxiety Smoking Status: Former smoker Past Alcohol Use History: Occasional Past Drug Use History: None Reported Medications and Allergies Home Medications Medication Instructions Recorded Confirmed Type ARIPiprazole [Abilify] 5 mg PO DAILY@0900 03/27/21 04/19/21 History Atorvastatin [Lipitor] 40 mg PO HS@2100 03/27/21 04/19/21 History Furosemide [Lasix] 20 mg PO DAILY@0900 03/27/21 04/19/21 History Acetaminophen Tab [Tylenol] 650 mg PO Q6HR PRN tab 04/02/21 04/19/21 Rx Hydrocortisone Suppository 25 mg RECTAL BID@0900,2100 04/06/21 04/19/21 History [Anusol-Hc] Acetaminophen-Codeine 300-30mg 1 tab PO Q6H PRN 04/20/21 04/20/21 History [Tylenol w/codeine #3] Omeprazole [PriLOSEC] 20 mg PO HS 04/20/21 04/20/21 History Ondansetron [Zofran] 4 mg PO Q8HR PRN 04/20/21 04/20/21 History Phenytoin Sodium Extended 100 mg PO BID 04/20/21 04/20/21 History [Dilantin] Potassium Chloride [Klor-Con 20] 20 meq PO DAILY@0900 04/20/21 04/20/21 History Sertraline [Zoloft] 100 mg PO BID 04/20/21 04/20/21 History traZODone HCL [Desyrel] 100 mg PO HS 04/20/21 04/20/21 History Allergies Allergy/AdvReac Type Severity Reaction Status Date / Time Penicillins Allergy Rash/Hives Verified 04/19/21 23:31 Physical Exam Vitals: Vital Signs Temp Pulse Pulse Resp BP BP Pulse Ox 04/20/21 14:44 97.9 F 107 H 18 123/68 98 04/20/21 07:23 90 18 134/70 97 04/20/21 06:23 98.3 F 85 18 117/73 97 04/20/21 05:13 98.3 F 92 16 138/87 93 L 04/20/21 03:42 91 18 111/77 97 04/20/21 02:00 91 18 114/74 97 04/20/21 01:00 92 18 121/71 97 04/20/21 00:00 95 18 115/72 97 04/19/21 23:40 92 18 116/84 98 04/19/21 22:32 99.6 F 96 18 122/66 98 Intake and Output 04/20/21 04/20/21 04/20/21 06:59 14:59 22:59 Intake Total 600 Balance 600 Intake: Intake, IV Titration 600 Amount Sodium Chloride 0.9% 1, 600 000 ml @ 75 mls/hr IV . [id number] [facility] Rx#:[id number] Other: Voiding Method External Catheter Weight 68.946 kg Constitutional: No acute distress, conversant, pleasant Eyes:Anicteric sclerae, moist conjunctiva, no lid-lag, PERRLA, ENMT: Oropharynx clear, no erythema, exudates Neck: Supple, FROM, no masses, or JVD, No carotid bruits, No thyromegaly Lungs: Clear to auscultation, Clear to percussion, Normal respiratory effort, no accessory muscle use Cardiovascular: Heart regular in rate and rhythm, No murmurs, gallops, or rubs, No peripheral edema Abdominal: Soft, Nontender, no guarding, rebound or rigidity, Normoactive bowel sounds, No hepatomegaly, No splenomegaly, No palpable mass Skin: Normal temperature, tone, texture, turgor, no induration, No subcutaneous nodules, No rash, lesions, No ulcers Extremities: Left knee swollen and warm and tender to touch. No digital cyanosis, No clubbing, Pedal pulses intact and symmetrical, Radial pulses intact and symmetrical, No calf tenderness Psychiatric: Alert and oriented to person, place and time, appropriate affect, i ntact judgement Neuro: Muscles Strength 5/5 in all 4 extremities, Sensation to light touch grossly present throughout, Cranial nerves II-XII grossly intact, no focal sensory deficits Results CBC & Chem 7: 04/19/21 23:33 04/19/21 23:33 Labs: Abnormal Lab Results - Last 24 Hours (Table) 04/19/21 04/19/21 04/20/21 Range/Units 23:33 23:33 04:57 WBC 14.7 H (3.8-10.6) k/uL RBC 3.32 L (3.80-5.40) m/uL MCV 107.6 H (80.0-100.0) fL MCH 35.5 H (25.0-35.0) pg Neutrophils # 11.8 H (1.3-7.7) k/uL ESR 87 H (0-20) mm/hr Sodium 130 L (137-145) mmol/L Creatinine 0.33 L (0.52-1.04) mg/dL Glucose 120 H (74-99) mg/dL C-Reactive Protein 4.8 H (<1.0) mg/dL Synovial Crystals Seen A (None Seen) Microbiology - Last 24 Hours (Table) 04/20/21 03:13 Body Fluid Culture - Preliminary Knee - Left Thrombosis Risk Factor Assmnt - Choose All That Apply Any of the Below Risk Factors Present?: Yes Each Factor Represents 1 point: Swollen legs (current) Each Risk Factor Represents 2 Points: Age 61-74 years Thrombosis Risk Factor Assessment Total Risk Factor Score: 3 Thrombosis Risk Factor Assessment Level: Moderate Risk Assessment and Plan Plan: Acute left knee arthritis could be infectious vs pseudogout Start colchicine Check pro calcitonin, transferring saturation, ferritin, PTH Continue antibiotics with ceftriaxone and vancomycin Consult ID Seen by also, no surgical intervention needed, recommending rest, ice, compression and elevation Chronic COPD, Hyperlipidemia, Hypertension Stable Resume meds General weakness PT once knee is better Admit to inpatient, expected length of stay more than 2 nights Anticipated discharge: 2-3 days Disposition likely back to rehab
[2021-04-20] MEDS ORDERED: VANCOMYCIN 1,250 MG in SODIUM CHLORIDE 0.9% 250 ML IVPB SCH (18:00)
[2021-04-20 18:12] LABS: Mononuclear WBC,Body Fluid 4 %; Polynuclear WBC,Body Fluid 96 %; Total Cells Counted,Body Fluid 100
[2021-04-20] MEDS: COLCHICINE 0.6 MG EACH PO SCH (18:15)
--- NOTE | 2021-04-21 00:02 | P.CONS ---
History of Present Illness - Reason for Consult Consult date: 04/20/21 left knee pain Requesting physician: Torres Ya - Chief Complaint left knee pain x 4 days - History of Present Illness History of present illness : Patient is 70-year-old female presenting to the ER last night for evaluation of left knee pain and swelling the patient symptom has been going on since Monday that is 3 to 4 days before presentation the hospital patient has a history of any trauma or fall patient has sudden onset of the pain that have progressively got worse describing the pain to be throbbing almost 7-8 out of 10 and worse with weightbearing and movement patient did have some swelling to the left knee but no redness patient denies having any fever or any chills with the symptom the patient was evaluated by ER physician on arrival to the ER patient did have low-grade fever of 99.6 patient did have a white count of 14.7 with a left shift creatinine was 0.33 CRP is 4.8 patient has been evaluated by Ortho the patient status post aspiration of the left knee synovial fluid was hazy with white cells of 10,000 calcium pyrophosphate uric acid crystals were seen patient has been treated with Rocephin and vancomycin with concern for septic arthritis infectious disease was consulted cultures are currently pending Review of system: CONSTITUTIONAL: Positive for weakness denies fever. EYES: No complaint. ENT: No complaint. RESPIRATORY: No complaint. CARDIOVASCULAR: No complaint. GENITOURINARY: No complaint. GASTROINTESTINAL: No complaint. MUSCULOSKELETAL: As per history of present illness. INTEGUMENTARY: No complaint. PSYCHOLOGIC: No complaint. ENDOCRINE: No complaint. NEUROLOGIC: No complaint. Past medical history : Reviewed, documented below Past surgical history : Reviewed, documented below Social history: Reviewed, documented below Medications: Reviewed, as documented below EXAMINATION: Vital sigans= Reviewed and documented below GENERAL DESCRIPTION: Elderly female lying in bed, no distress. No tachypnea or accessory muscle of respiration use. HEENT: Shows Pallor , no scleral icterus. Oral mucous membrane is dry. NECK: Trachea central, no thyromegaly. LUNGS: Unlabored breathing. Clear to auscultation anteriorly. No wheeze or crackle. HEART: S1, S2, regular rate and rhythm. ABDOMEN: Soft, no tenderness , guarding or rigidity EXTREMITIES: Mild swelling to the left knee no redness no warmth no drainage. SKIN: No rash, no masses palpable. NEUROLOGICAL: The patient is awake, alert, oriented x3, mood and affect normal. LABS AND RADIOLOGY: Reviewed results see below Assessment : Patient presented to hospital with acute left knee pain in this patient did have some swelling but no redness but do not have any fever the left knee aspirate white count is not significant elevated and crystal has been seen her likely related to gouty arthritis clinically not behaving as a septic arthritis Plan: 1-we will check uric acid level 2-we will add colchicine 3-discontinue vancomycin and Rocephin We will follow on clinical condition and cultures to further adjust medication if needed Thank you for this consultation we will follow the patient along with you Past Medical History Past Medical History: COPD, Hyperlipidemia, Hypertension History of Any Multi-Drug Resistant Organisms: None Reported Past Surgical History: Appendectomy, Hysterectomy, Orthopedic Surgery, Tonsillectomy Additional Past Surgical History / Comment(s): right hand, right/left shoulder Past Anesthesia/Blood Transfusion Reactions: No Reported Reaction Past Psychological History: Anxiety Smoking Status: Former smoker Past Alcohol Use History: Occasional Past Drug Use History: None Reported Medications and Allergies Home Medications Medication Instructions Recorded Confirmed Type ARIPiprazole [Abilify] 5 mg PO DAILY@0900 03/27/21 04/19/21 History Atorvastatin [Lipitor] 40 mg PO HS@209903/27/21 04/19/21 History Furosemide [Lasix] 20 mg PO DAILY@0900 03/27/21 04/19/21 History Acetaminophen Tab [Tylenol] 650 mg PO Q6HR PRN tab 04/02/21 04/19/21 Rx Hydrocortisone Suppository 25 mg RECTAL BID@0900,209904/06/21 04/19/21 History [Anusol-Hc] Acetaminophen-Codeine 300-30mg 1 tab PO Q6H PRN 04/20/21 04/20/21 History [Tylenol w/codeine #3] Omeprazole [PriLOSEC] 20 mg PO HS 04/20/21 04/20/21 History Ondansetron [Zofran] 4 mg PO Q8HR PRN 04/20/21 04/20/21 History Phenytoin Sodium Extended 100 mg PO BID 04/20/21 04/20/21 History [Dilantin] Potassium Chloride [Klor-Con 20] 20 meq PO DAILY@0900 04/20/21 04/20/21 History Sertraline [Zoloft] 100 mg PO BID 04/20/21 04/20/21 History traZODone HCL [Desyrel] 100 mg PO HS 04/20/21 04/20/21 History Allergies Allergy/AdvReac Type Severity Reaction Status Date / Time Penicillins Allergy Rash/Hives Verified 04/19/21 23:31 Physical Exam Vitals: Vital Signs Temp Pulse Pulse Resp BP BP Pulse Ox 04/20/21 14:44 97.9 F 107 H 18 123/68 98 04/20/21 07:23 90 18 134/70 97 04/20/21 06:23 98.3 F 85 18 117/73 97 04/20/21 05:13 98.3 F 92 16 138/87 93 L 04/20/21 03:42 91 18 111/77 97 04/20/21 02:00 91 18 114/74 97 04/20/21 01:00 92 18 121/71 97 04/20/21 00:00 95 18 115/72 97 04/19/21 23:40 92 18 116/84 98 04/19/21 22:32 99.6 F 96 18 122/66 98 Intake and Output 04/20/21 04/20/21 04/20/21 06:59 14:59 22:59 Intake Total 600 Output Total 150 Balance 600 -150 Intake: Intake, IV Titration 600 Amount Sodium Chloride 0.9% 1, 600 000 ml @ 75 mls/hr IV . [id number] [facility] Rx#:[id number] Output: Urine 150 Other: Voiding Method External Catheter # Voids 1 Weight 68.946 kg Results CBC & Chem 7: 04/19/21 23:33 04/19/21 23:33 Labs: Abnormal Lab Results - Last 24 Hours (Table) 04/19/21 04/19/21 04/20/21 Range/Units 23:33 23:33 04:57 WBC 14.7 H (3.8-10.6) k/uL RBC 3.32 L (3.80-5.40) m/uL MCV 107.6 H (80.0-100.0) fL MCH 35.5 H (25.0-35.0) pg Neutrophils # 11.8 H (1.3-7.7) k/uL ESR 87 H (0-20) mm/hr Sodium 130 L (137-145) mmol/L Creatinine 0.33 L (0.52-1.04) mg/dL Glucose 120 H (74-99) mg/dL C-Reactive Protein 4.8 H (<1.0) mg/dL Synovial Crystals Seen A (None Seen) Microbiology - Last 24 Hours (Table) 04/20/21 11:00 Body Fluid Culture - Preliminary Knee - Left 04/20/21 03:13 Body Fluid Culture - Preliminary Knee - Left
[2021-04-21] MEDS: MORPHINE SULFATE 4 MG/ML SYRINGE IV PRN ×6 (00:23→21:21)
[2021-04-21] MEDS: FAMOTIDINE 20 MG TAB PO SCH ×2 (07:17→21:14)
[2021-04-21] MEDS: COLCHICINE 0.6 MG EACH PO SCH (07:17)
[2021-04-21] MEDS: SODIUM CHLORIDE 0.9% 1,000 ML IV SCH ×2 (07:17→21:26)
[2021-04-21 07:23] LABS: ALT 10 U/L (4-34); AST 19 U/L (14-36); African American GFR (CKD) >90 (>60 ml/min/1.73 sqM); Albumin 2.8 g/dL (3.5-5.0); Alkaline Phosphatase 94 U/L (38-126); Anion Gap 6 mmol/L; Blood Urea Nitrogen 5 mg/dL (7-17); Calcium 9.1 mg/dL (8.4-10.2); Carbon Dioxide 25 mmol/L (22-30); Chloride 101 mmol/L (98-107); Globulin 2.7 g/dL; Glucose 97 mg/dL (74-99); Non-African American GFR(CKD) >90 (>60 ml/min/1.73 sqM); Sodium 132 mmol/L (137-145); Total Bilirubin 0.3 mg/dL (0.2-1.3); Total Protein 5.5 g/dL (6.3-8.2)
[2021-04-21 08:45] LABS: Magnesium 1.7 mg/dL (1.6-2.3)
[2021-04-21 10:06] LABS: Basophils # (A) 0.04 X 10*3/uL (0.00-0.10); Basophils % (A) 0.4 %; Eosinophils # (A) 0.11 X 10*3/uL (0.04-0.35); HGB 10.2 g/dL (12.0-15.0); Lymphocytes # (A) 0.82 X 10*3/uL (0.90-5.00); Lymphocytes % (A) 7.4 %; MCH 33.7 pg (27.0-32.0); MCHC 30.9 g/dL (32.0-37.0); MCV 108.9 fL (80.0-97.0); Monocytes # (A) 0.87 X 10*3/uL (0.20-1.00); Monocytes % (A) 7.8 %; Neutrophils # (A) 9.19 X 10*3/uL (1.80-7.70); Neutrophils % (A) 82.7 %; Platelet Count 257 X 10*3/uL (140-440); RBC 3.03 X 10*6/uL (4.10-5.20); RDW 12.3 % (11.5-14.5); WBC 11.11 X 10*3/uL (4.50-10.00)
[2021-04-21] MEDS ORDERED: methylPREDNISolone ACETATE 40 MG/ML 1 ML VIAL INTRAARTIC STA (10:07)
[2021-04-21] MEDS ORDERED: ONDANSETRON 4 MG TAB PO PRN (10:24)
[2021-04-21] MEDS: SERTRALINE 100 MG TAB PO SCH ×2 (10:54→21:15)
[2021-04-21] MEDS: PHENYTOIN SODIUM EXTENDED 100 MG CAP PO SCH ×4 (10:54→22:02)
[2021-04-21 12:47] LABS: Procalcitonin 0.08 ng/mL (0.02-0.09)
[2021-04-21] MEDS ORDERED: LIDOCAINE 2% (PF) 20 MG/ML 5 ML VIAL INTRAARTIC ONE (13:30)
--- NOTE | 2021-04-21 14:35 | P.PN ---
Subjective Progress Note Date: 04/21/21 Principal diagnosis: left knee arthritis Patient still having severe pain with any movement of the left knee. She cannot stand on it due to severe discomfort and pain. No fevers or chills. Objective - Vital Signs Vital signs: Vital Signs Temp 98.5 F 04/21/21 07:00 Pulse 95 04/21/21 07:00 Resp 18 04/21/21 07:00 BP 145/84 04/21/21 07:00 Pulse Ox 97 04/21/21 07:00 Intake & Output 04/20/21 04/21/21 04/21/21 18:59 06:59 18:59 Intake Total 600 118 Output Total 150 700 800 Balance 115 -854 -960 Intake: Intake, IV Titration 600 Amount Sodium Chloride 0.9% 1, 600 000 ml @ 75 mls/hr IV . [id number] [facility] Rx#:[id number] Oral 118 Output: Urine 150 700 800 Other: Voiding Method External Catheter External Catheter External Catheter # Voids 1 2 - Exam Constitutional: No acute distress, conversant, pleasant Eyes:Anicteric sclerae, moist conjunctiva, no lid-lag, PERRLA, ENMT: Oropharynx clear, no erythema, exudates Neck: Supple, FROM, no masses, or JVD, No carotid bruits, No thyromegaly Lungs: Clear to auscultation, Clear to percussion, Normal respiratory effort, no accessory muscle use Cardiovascular: Heart regular in rate and rhythm, No murmurs, gallops, or rubs, No peripheral edema Abdominal: Soft, Nontender, no guarding, rebound or rigidity, Normoactive bowel sounds, No hepatomegaly, No splenomegaly, No palpable mass Skin: Normal temperature, tone, texture, turgor, no induration, No subcutaneous nodules, No rash, lesions, No ulcers Extremities: Left knee swollen and warm and tender to touch. No digital cyanosis, No clubbing, Pedal pulses intact and symmetrical, Radial pulses intact and symmetrical, No calf tenderness Psychiatric: Alert and oriented to person, place and time, appropriate affect, intact judgement Neuro: Muscles Strength 5/5 in all 4 extremities, Sensation to light touch grossly present throughout, Cranial nerves II-XII grossly intact, no focal sensory deficits - Labs CBC & Chem 7: 04/21/21 06:20 04/21/21 06:20 Labs: Abnormal Lab Results - Last 24 Hours (Table) 04/20/21 04/21/21 04/21/21 Range/Units 11:00 06:20 06:20 WBC (4.50-10.00) X 10*3/uL RBC (4.10-5.20) X 10*6/uL Hgb (12.0-15.0) g/dL Hct (37.2-46.3) % MCV (80.0-97.0) fL MCH (27.0-32.0) pg MCHC (32.0-37.0) g/dL Immature Gran # (0.00-0.04) X 10*3/uL Neutrophils # (1.80-7.70) X 10*3/uL Lymphocytes # (0.90-5.00) X 10*3/uL Sodium 132 L (137-145) mmol/L BUN 5 L (7-17) mg/dL Creatinine 0.32 L (0.52-1.04) mg/dL Transferrin 182.0 L (204.0-354.0) mg/dL Ferritin 559.0 H (10.0-291.0) ng/mL Total Protein 5.5 L (6.3-8.2) g/dL Albumin 2.8 L (3.5-5.0) g/dL Synovial Crystals Seen A (None Seen) 04/21/21 Range/Units 06:20 WBC 11.11 H (4.50-10.00) X 10*3/uL RBC 3.03 L (4.10-5.20) X 10*6/uL Hgb 10.2 L (12.0-15.0) g/dL Hct 33.0 L (37.2-46.3) % MCV 108.9 H (80.0-97.0) fL MCH 33.7 H (27.0-32.0) pg MCHC 30.9 L (32.0-37.0) g/dL Immature Gran # 0.08 H (0.00-0.04) X 10*3/uL Neutrophils # 9.19 H (1.80-7.70) X 10*3/uL Lymphocytes # 0.82 L (0.90-5.00) X 10*3/uL Sodium (137-145) mmol/L BUN (7-17) mg/dL Creatinine (0.52-1.04) mg/dL Transferrin (204.0-354.0) mg/dL Ferritin (10.0-291.0) ng/mL Total Protein (6.3-8.2) g/dL Albumin (3.5-5.0) g/dL Synovial Crystals (None Seen) Microbiology - Last 24 Hours (Table) 04/20/21 03:13 Gram Stain - Preliminary Knee - Left Body Fluid Culture - Preliminary 04/20/21 11:00 Gram Stain - Preliminary Knee - Left Body Fluid Culture - Preliminary 04/19/21 23:33 Blood Culture - Preliminary Blood No Growth after 24 hours Assessment and Plan Plan: Acute left knee arthritis likely pseudogout due to presence of pyrophosphate crystals in the synovial fluid Patient had a vomiting episode with colchicine, will start scheduled Motrin Pro calcitonin normal, infection unlikely, PTH ok, iron studies pending Id discontinuing antibiotics Seen by ortho, doing sequential arthrocenteses Chronic COPD, Hyperlipidemia, Hypertension Stable Resume meds General weakness PT once knee is better Anticipated discharge: 2-3 days Disposition likely back to rehab
[2021-04-21] MEDS: IBUPROFEN 400 MG TAB PO SCH ×3 (15:16→21:13)
--- NOTE | 2021-04-21 16:37 | PN ---
PROGRESS NOTE DATE OF SERVICE: 04/21/2021 REASON FOR FOLLOWUP: Left knee pain; question of septic arthritis. INTERVAL HISTORY: The patient is afebrile. The patient is currently breathing comfortably. Still complaining of pain to the left knee area. She did colchicine this morning. No chest pain, shortness of breath or cough. No abdominal pain or diarrhea. PHYSICAL EXAMINATION: Blood pressure 145/84, pulse of 95, temperature 98.5. She is 97% on 2 L nasal cannula. General description is an elderly female lying in bed in no distress. Respiratory system: Unlabored breathing, clear to auscultation anteriorly. Heart S1, S2. Regular rate and rhythm. Abdomen soft, no tenderness. Left knee seems to be slightly swollen. No redness. LABS: Hemoglobin is 10.2, white count 11.11, creatinine 0.32. DIAGNOSTIC IMPRESSION AND PLAN: Patient with left knee pain secondary to the acute gouty arthritis. Clinically not behaving as septic arthritis. Patient is currently off antibiotic therapy. Culture so far negative. Continue supportive care. MMODL / IJN: [id number] /
--- NOTE | 2021-04-21 20:59 | P.PN ---
Subjective Progress Note Date: 04/21/21 This patient is a 70- year old female with a past medical history of recent GI bleed, colitis, hyperlipidemia, hypertension who presented to [facility] ED on 04/19/21 with complaints of severe left knee pain. Patient states there was no injury. Her knee pain began last week. Patient was recently discharged to subacute rehab after a recent hospital stay for GI bleed. She state her left knee pain gradually worsened until she was unable to bear weight. Therefore she presented to the emergency department. X-rays showed moderate arthritic changes. Her knee was aspirated in the ED, and aspiration was repeated yesterday by our team. Most recent synovial fluid analysis obtained yesterday from the left knee shows nucleated cell count of 14,000 and calcium pyrophosphate crystals were seen. Dr. Josue was consulted by internal medicine, and there is very low concern for septic arthritis at this time. Cultures showing no growth at 24 hours. Antibiotics were discontinued per Dr. Josue today. Colchicine was initiated today per internal medicine, and patient had episode of vomiting following this medication, but now she is having no issues. She is afebrile. Patient was seen and examined bedside this morning. Patient continues to experience significant left knee pain. She has not been up from bed due to pain. She states she otherwise feels well. She denies fevers, chills. Objective - Vital Signs Vital signs: Vital Signs Temp 98.3 F 04/21/21 14:21 Pulse 95 04/21/21 14:21 Resp 20 04/21/21 14:21 BP 120/59 04/21/21 14:21 Pulse Ox 96 04/21/21 14:21 Intake & Output 04/20/21 04/21/21 04/21/21 18:59 06:59 18:59 Intake Total 600 118 Output Total 002 848 4073 Balance 450 -700 -1282 Intake: Intake, IV Titration 600 Amount Sodium Chloride 0.9% 1, 600 000 ml @ 75 mls/hr IV . [id number] [facility] Rx#:[id number] Oral 118 Output: Urine 912 822 7134 Other: Voiding Method External Catheter External Catheter External Catheter # Voids 1 2 - Exam Patient was seen and examined bedside this morning. She is alert and orientated x3. A focused examination of the left knee is conducted. On inspection of the left knee, there is large knee effusion. There is no overlying erythema, warmth. No open wounds. There is diffuse pain with palpation and any attempts at passive [id number] of the knee. There is no pain with PROM of the hip. Motor and sensory function intact left lower extremity. Dorsalis pedis pulse palpable. The left lower extremity is warm and well perfused. Calf is soft and non-tender to palpation, no evidence of DVT. - Labs CBC & Chem 7: 04/21/21 06:20 04/21/21 06:20 Labs: Abnormal Lab Results - Last 24 Hours (Table) 04/20/21 04/21/21 04/21/21 Range/Units 11:00 06:20 06:20 WBC (4.50-10.00) X 10*3/uL RBC (4.10-5.20) X 10*6/uL Hgb (12.0-15.0) g/dL Hct (37.2-46.3) % MCV (80.0-97.0) fL MCH (27.0-32.0) pg MCHC (32.0-37.0) g/dL Immature Gran # (0.00-0.04) X 10*3/uL Neutrophils # (1.80-7.70) X 10*3/uL Lymphocytes # (0.90-5.00) X 10*3/uL Sodium 132 L (137-145) mmol/L BUN 5 L (7-17) mg/dL Creatinine 0.32 L (0.52-1.04) mg/dL Transferrin 182.0 L (204.0-354.0) mg/dL Ferritin 559.0 H (10.0-291.0) ng/mL Total Protein 5.5 L (6.3-8.2) g/dL Albumin 2.8 L (3.5-5.0) g/dL Synovial Crystals Seen A (None Seen) 04/21/21 Range/Units 06:20 WBC 11.11 H (4.50-10.00) X 10*3/uL RBC 3.03 L (4.10-5.20) X 10*6/uL Hgb 10.2 L (12.0-15.0) g/dL Hct 33.0 L (37.2-46.3) % MCV 108.9 H (80.0-97.0) fL MCH 33.7 H (27.0-32.0) pg MCHC 30.9 L (32.0-37.0) g/dL Immature Gran # 0.08 H (0.00-0.04) X 10*3/uL Neutrophils # 9.19 H (1.80-7.70) X 10*3/uL Lymphocytes # 0.82 L (0.90-5.00) X 10*3/uL Sodium (137-145) mmol/L BUN (7-17) mg/dL Creatinine (0.52-1.04) mg/dL Transferrin (204.0-354.0) mg/dL Ferritin (10.0-291.0) ng/mL Total Protein (6.3-8.2) g/dL Albumin (3.5-5.0) g/dL Synovial Crystals (None Seen) Microbiology - Last 24 Hours (Table) 04/20/21 03:13 Gram Stain - Preliminary Knee - Left Body Fluid Culture - Preliminary 04/20/21 11:00 Gram Stain - Preliminary Knee - Left Body Fluid Culture - Preliminary 04/19/21 23:33 Blood Culture - Preliminary Blood No Growth after 24 hours Assessment and Plan Assessment: Pseudogout, acute flare left knee. Plan: - Patient was discussed with Dr. Najera. Due to ongoing knee pain, recommend repeat aspiration and cortisone injection today into the left knee. Patient is agreeable to this plan. - Pseudogout management per internal medicine. - Rest, ice, elevate left knee for swelling and pain control. - Physical therapy consult placed for gait and balance training. - We will follow patient closely and make recommendations as needed. Procedure: Verbal consent for left knee aspiration and injection was obtained. The skin overlying the superolateral pole of the patella was prepped with Chloraprep, the skin was anesthetized with 4 mLs of 1% lidocaine. The skin was re-prepped with a new Chloraprep stick. An 18g needle was inserted and 55mL of hazy, yellow fluid was aspirated. No purulence. The syringe was removed and 3mL of 2% lidocaine and 1mL of depomedrol was injected into the left knee under sterile conditions. The needle was removed and a bandage was placed. The patient tolerated the procedure well. The fluid was sent to the lab for cell count, culture, and crystal analysis.
[2021-04-21] MEDS: PANTOPRAZOLE 40 MG TABLET PO SCH (21:13)
[2021-04-21] MEDS: ATORVASTATIN 40 MG TAB PO SCH (21:14)
[2021-04-21] MEDS: traZODone HCL 100 MG TAB PO SCH (21:14)
[2021-04-21] MEDS: HYDROCORTISONE SUPPOSITORY 25 MG SUPP RECTAL SCH (21:26)
[2021-04-22] MEDS: MORPHINE SULFATE 4 MG/ML SYRINGE IV PRN ×4 (02:00→16:03)
[2021-04-22] MEDS: Acetaminophen-Codeine 300-30mg TAB PO PRN (04:26)
[2021-04-22] MEDS: IBUPROFEN 400 MG TAB PO SCH ×4 (07:47→20:56)
[2021-04-22] MEDS: FAMOTIDINE 20 MG TAB PO SCH ×2 (07:47→20:52)
[2021-04-22] MEDS: PHENYTOIN SODIUM EXTENDED 100 MG CAP PO SCH ×2 (07:48→20:52)
[2021-04-22] MEDS: POTASSIUM CHLORIDE ER 20 MEQ TAB.ER PO SCH (07:48)
[2021-04-22] MEDS: FUROSEMIDE 20 MG TAB PO SCH (07:48)
[2021-04-22] MEDS: HYDROCORTISONE SUPPOSITORY 25 MG SUPP RECTAL SCH ×2 (07:49→20:52)
[2021-04-22] MEDS: ARIPiprazole 5 MG TAB PO SCH (07:49)
[2021-04-22] MEDS: SERTRALINE 100 MG TAB PO SCH ×2 (07:49→20:53)
[2021-04-22 08:12] LABS: African American GFR (CKD) >90 (>60 ml/min/1.73 sqM); Anion Gap 7 mmol/L; Blood Urea Nitrogen 6 mg/dL (7-17); Calcium 9.6 mg/dL (8.4-10.2); Carbon Dioxide 22 mmol/L (22-30); Chloride 103 mmol/L (98-107); Glucose 108 mg/dL (74-99); Non-African American GFR(CKD) >90 (>60 ml/min/1.73 sqM); Potassium 4.2 mmol/L (3.5-5.1); Sodium 132 mmol/L (137-145)
[2021-04-22 09:20] LABS: Magnesium 1.8 mg/dL (1.6-2.3)
--- NOTE | 2021-04-22 10:06 | XR ---
EXAMINATION TYPE: XR ankle complete LT DATE OF EXAM: 04/22/2021 COMPARISON: NONE HISTORY: Pain FINDINGS: Three views of the ankle demonstrate the ankle mortise to be intact and symmetric. The joint spaces are preserved. The osseous structures are intact. Diffuse osteopenia. There is soft tissue edema. H ypertrophic changes involving the medial malleolus. There is calcaneal spurs. IMPRESSION: 1. No definite acute fracture or dislocation, if symptoms persist follow-up study in 7 to 10 days wou ld be suggested. 2. Diffuse osteopenia and hypertrophic changes.
--- NOTE | 2021-04-22 10:08 | XR ---
EXAMINATION TYPE: XR foot complete LT DATE OF EXAM: 04/22/2021 COMPARISON: NONE HISTORY: Pain TECHNIQUE: Three views are submitted. FINDINGS: The osseous structures are intact. There is no acute fracture or dislocation. Hypertrophic arthrop athy of the first MTP with diffuse osteopenia.. Calcaneal spurs are noted. IMPRESSION: 1. Severe hypertrophic arthropathy first MTP. 2. Calcaneal spurs. 3. No acute fracture.
[2021-04-22 11:37] LABS: Basophils # (A) 0.03 X 10*3/uL (0.00-0.10); Basophils % (A) 0.3 %; Eosinophils # (A) 0.07 X 10*3/uL (0.04-0.35); Eosinophils % (A) 0.7 %; HGB 10.7 g/dL (12.0-15.0); Lymphocytes # (A) 0.72 X 10*3/uL (0.90-5.00); Lymphocytes % (A) 6.8 %; MCH 33.8 pg (27.0-32.0); MCHC 31.5 g/dL (32.0-37.0); MCV 107.3 fL (80.0-97.0); Mean Platelet Volume 10.3 fL (9.5-12.2); Monocytes # (A) 0.73 X 10*3/uL (0.20-1.00); Monocytes % (A) 6.9 %; Neutrophils # (A) 8.99 X 10*3/uL (1.80-7.70); Neutrophils % (A) 84.7 %; Platelet Count 295 X 10*3/uL (140-440); RBC 3.17 X 10*6/uL (4.10-5.20); RDW 11.9 % (11.5-14.5)
--- NOTE | 2021-04-22 12:42 | P.PN ---
Subjective Progress Note Date: 04/22/21 This patient is a 70- year old female with a past medical history of recent GI bleed, colitis, hyperlipidemia, hypertension who presented to [facility] ED on 04/19/21 with complaints of severe left knee pain. Patient states there was no injury. Her knee pain began last week. Patient was recently discharged to subacute rehab after a recent hospital stay for GI bleed. She state her left knee pain gradually worsened until she was unable to bear weight. Therefore she presented to the emergency department. X-rays showed moderate arthritic changes. Her knee was aspirated in the ED, and aspiration was repeated yesterday by our team. Most recent synovial fluid analysis obtained yesterday from the left knee shows nucleated cell count of 14,000 and calcium pyrophosphate crystals were seen. Dr. Josue was consulted by internal medicine, and there is very low concern for septic arthritis at this time. Cultures showing no growth at 24 hours. Antibiotics were discontinued per Dr. Josue today. Colchicine was initiated today per internal medicine, and patient had episode of vomiting following this medication, but now she is having no issues. She is afebrile. 04/22/21: Patient was seen and examined bedside this morning. Repeat left knee aspiration was performed yesterday bedside, fluid was sent to the lab for analysis and results are pending. Patient was also given a cortisone injection. Patient states her left knee pain has improved slightly compared to yesterday, she is able to perform gentle ROM of the knee. She was not able to ambulate with physical therapy. She also is complaining of left foot pain. She state she otherwise feels well, she denies fevers, chills. Objective - Vital Signs Vital signs: Vital Signs Temp 97.5 F L 04/22/21 07:00 Pulse 90 04/22/21 08:00 Resp 16 04/22/21 08:00 BP 134/76 04/22/21 07:00 Pulse Ox 95 04/22/21 07:00 Intake & Output 04/21/21 04/22/21 04/22/21 18:59 06:59 18:59 Intake Total 118 591 Output Total 1400 900 Balance -1282 -900 591 Intake: Oral 118 591 Output: Urine 1400 900 Other: Voiding Method External Catheter External Catheter External Catheter # Voids 1 - Exam On examination, she is sitting up in bed in no distress. She is alert and orientated x3. A focused examination of the left knee is conducted. On inspection of the left knee, there is moderate knee effusion. There is no overlying erythema, warmth. No open wounds. There is diffuse pain with palpation of the knee. I am able to perform gentle ROM of the knee this morning. There is no pain with PROM of the hip. Motor and sensory function intact left lower extremity. Dorsalis pedis pulse palpable. The left lower extremity is warm and well perfused. Calf is soft and non-tender to palpation, no evidence of DVT. On inspection of the left foot, there is mild swelling along the lateral border of the foot. There is diffuse pain with palpation of the lateral ankle and foot. No overlying erythema, warmth. No open wounds. Painless passive ROM of the ankle and toes. - Labs CBC & Chem 7: 04/22/21 06:59 04/22/21 06:59 Labs: Abnormal Lab Results - Last 24 Hours (Table) 04/22/21 04/22/21 Range/Units 06:59 06:59 WBC 10.60 H (4.50-10.00) X 10*3/uL RBC 3.17 L (4.10-5.20) X 10*6/uL Hgb 10.7 L (12.0-15.0) g/dL Hct 34.0 L (37.2-46.3) % MCV 107.3 H (80.0-97.0) fL MCH 33.8 H (27.0-32.0) pg MCHC 31.5 L (32.0-37.0) g/dL Immature Gran # 0.06 H (0.00-0.04) X 10*3/uL Neutrophils # 8.99 H (1.80-7.70) X 10*3/uL Lymphocytes # 0.72 L (0.90-5.00) X 10*3/uL Sodium 132 L (137-145) mmol/L BUN 6 L (7-17) mg/dL Creatinine 0.26 L (0.52-1.04) mg/dL Glucose 108 H (74-99) mg/dL Microbiology - Last 24 Hours (Table) 04/19/21 23:33 Blood Culture - Preliminary Blood No Growth after 48 hours 04/20/21 03:13 Gram Stain - Preliminary Knee - Left Body Fluid Culture - Preliminary 04/20/21 11:00 Gram Stain - Preliminary Knee - Left Body Fluid Culture - Preliminary Assessment and Plan Assessment: Pseudogout, acute flare left knee. Left foot pain. Plan: - Patient was discussed with Dr. Najera. Due to ongoing knee pain, recommended an MRI of the left knee to rule-out a structural cause. This has been ordered stat today. - Will obtain x-rays of left ankle and foot for new left complaints of lateral left foot pain and swelling. - Will follow lab results and cultures from left knee aspiration 04/21/21. - Pseudogout management per internal medicine. - Rest, ice, elevate left knee for swelling and pain control. - Physical therapy consult placed for gait and balance training. - We will follow patient closely and make recommendations as needed.
[2021-04-22] MEDS ORDERED: predniSONE 20 MG TAB PO STA (12:55)
[2021-04-22] MEDS: SODIUM CHLORIDE 0.9% 1,000 ML IV SCH ×2 (13:16→20:51)
--- NOTE | 2021-04-22 16:46 | P.PN ---
Subjective Progress Note Date: 04/22/21 Principal diagnosis: left knee arthritis Patient continues to have swelling and pain in the left knee, now she has the same symptoms in the left ankle. Objective - Vital Signs Vital signs: Vital Signs Temp 98.1 F 04/22/21 14:43 Pulse 90 04/22/21 14:48 Resp 18 04/22/21 14:48 BP 118/76 04/22/21 14:43 Pulse Ox 98 04/22/21 14:43 Intake & Output 04/21/21 04/22/21 04/22/21 18:59 06:59 18:59 Intake Total 118 591 Output Total 1400 900 Balance -1282 -900 591 Intake: Oral 118 591 Output: Urine 1400 900 Other: Voiding Method External Catheter External Catheter External Catheter # Voids 1 - Exam Constitutional: No acute distress, conversant, pleasant Eyes:Anicteric sclerae, moist conjunctiva, no lid-lag, PERRLA, ENMT: Oropharynx clear, no erythema, exudates Neck: Supple, FROM, no masses, or JVD, No carotid bruits, No thyromegaly Lungs: Clear to auscultation, Clear to percussion, Normal respiratory effort, no accessory muscle use Cardiovascular: Heart regular in rate and rhythm, No murmurs, gallops, or rubs, No peripheral edema Abdominal: Soft, Nontender, no guarding, rebound or rigidity, Normoactive bowel sounds, No hepatomegaly, No splenomegaly, No palpable mass Skin: Normal temperature, tone, texture, turgor, no induration, No subcutaneous nodules, No rash, lesions, No ulcers Extremities: Left knee swollen and warm and tender to touch. No digital cyanosis, No clubbing, Pedal pulses intact and symmetrical, Radial pulses intact and symmetrical, No calf tenderness Psychiatric: Alert and oriented to person, place and time, appropriate affect, intact judgement Neuro: Muscles Strength 5/5 in all 4 extremities, Sensation to light touch grossly present throughout, Cranial nerves II-XII grossly intact, no focal sensory deficits - Labs CBC & Chem 7: 04/22/21 06:59 04/22/21 06:59 Labs: Abnormal Lab Results - Last 24 Hours (Table) 04/22/21 04/22/21 Range/Units 06:59 06:59 WBC 10.60 H (4.50-10.00) X 10*3/uL RBC 3.17 L (4.10-5.20) X 10*6/uL Hgb 10.7 L (12.0-15.0) g/dL Hct 34.0 L (37.2-46.3) % MCV 107.3 H (80.0-97.0) fL MCH 33.8 H (27.0-32.0) pg MCHC 31.5 L (32.0-37.0) g/dL Immature Gran # 0.06 H (0.00-0.04) X 10*3/uL Neutrophils # 8.99 H (1.80-7.70) X 10*3/uL Lymphocytes # 0.72 L (0.90-5.00) X 10*3/uL Sodium 132 L (137-145) mmol/L BUN 6 L (7-17) mg/dL Creatinine 0.26 L (0.52-1.04) mg/dL Glucose 108 H (74-99) mg/dL Microbiology - Last 24 Hours (Table) 04/21/21 10:00 Body Fluid Culture - Preliminary Knee - Left 04/20/21 03:13 Gram Stain - Preliminary Knee - Left Body Fluid Culture - Preliminary 04/20/21 11:00 Gram Stain - Preliminary Knee - Left Body Fluid Culture - Preliminary 04/19/21 23:33 Blood Culture - Preliminary Blood No Growth after 48 hours Assessment and Plan Plan: Acute left knee arthritis likely pseudogout due to presence of pyrophosphate crystals in the synovial fluid status post multiple thoracenteses procedures the left knee with cortisone injection. Acute left ankle arthritis Patient had a vomiting episode with colchicine, continue on scheduled Motrin Will add prednisone 40 mg daily to start a taper Pro calcitonin normal, infection unlikely, PTH ok, iron studies pending Id discontinued antibiotics Seen by ortho, doing sequential arthrocenteses Chronic COPD, Hyperlipidemia, Hypertension Stable Resume meds General weakness PT once knee is better Changed to inpatient Anticipated discharge: 2-3 days Disposition likely back to rehab
--- NOTE | 2021-04-22 17:10 | MR ---
EXAMINATION TYPE: MR knee LT wo con DATE OF EXAM: 04/22/2021 COMPARISON: Radiograph 04/20/2021 HISTORY: 70-year-old female Left knee pain TECHNIQUE: Multiplanar, multisequence imaging of the left knee is performed without IV contrast. FINDINGS: A few attenuated fibers of the ACL are visualized. PCL appears intact. Thickening and edematous change of the MCL which appears intact. There is loss of normal delineation at the origin of the LCL proper with edema. Increased signal at t he popliteus tendon origin. There is a multidirectional tear involving the posterior horn of the medial meniscus extending into t he meniscal body. Focal high-grade cartilage loss measuring 9 x 7 mm along the mid central aspect of the medial femoral condyle. The lateral meniscus is diffusely degenerative, torn and extruded. No normal some fragmented meniscal tissue is noted at the posterior horn. The anterior horn and body of probably extruded laterally. Se guzman loss of articular cartilage throughout the lateral compartment with marginal spurring. There is moderate to high-grade irregular cartilage loss throughout both medial and lateral patellar facets. Marginal spurring the patellofemoral compartment. Extensor mechanism is intact. There is a large knee joint effusion and generalized soft tissue swelling. Moderate-sized Arrington's cys t shows mild complexity and measures up to 6.9 cm long and 2.3 cm wide. There appears to be significant partial tears of the origin of both the medial and lateral head gastr ocnemius with associated ganglion cyst formation measuring up to 1.9 cm. Normal popliteal artery anatomy. Marked generalized muscle atrophy. No suspicious bone marrow replacement. IMPRESSION: 1. Large knee joint effusion with generalized soft tissue swelling. Correlate with arthrocentesis res ults to exclude infectious, crystalline, or inflammatory arthropathy. 2. Diffusely degenerative, torn, and extruded lateral meniscus with end-stage lateral compartment ost eoarthrosis. 3. Torn posterior horn and body of the medial meniscus. Focal 9 x 7 mm high-grade chondral defect yuliya ng the mid central aspect of the medial femoral condyle. 4. Moderate overall patellofemoral compartmental osteoarthrosis with significant cartilage loss along the patellar facets. 5. Partially torn ACL. Grade 1 MCL sprain. Grade 2 sprain of the LCL proper at the femoral attachment . Popliteus tendinosis/contusion. 6. Large partial tears at the origins of the medial and lateral head gastrocnemius with ganglion cyst s measuring up to 1.9 cm. 7. Severe generalized muscle atrophy. Moderate-sized Arrington's cyst.
[2021-04-22 18:43] LABS: Appearance,BF Cloudy; Nucleated Cells, Body Fluid 6800 /uL; RBC, Body Fluid 3650 /uL
[2021-04-22 18:46] LABS: Mononuclear WBC,Body Fluid 14 %; Polynuclear WBC,Body Fluid 86 %; Total Cells Counted,Body Fluid 100
[2021-04-22] MEDS: ATORVASTATIN 40 MG TAB PO SCH (20:50)
[2021-04-22] MEDS: PANTOPRAZOLE 40 MG TABLET PO SCH (20:51)
[2021-04-22] MEDS: traZODone HCL 100 MG TAB PO SCH (20:53)
--- NOTE | 2021-04-22 23:47 | PN ---
PROGRESS NOTE DATE OF SERVICE: 04/22/2021 REASON FOR FOLLOWUP: Left knee pain concerning arthritis. INTERVAL HISTORY: The patient is afebrile. She is still complaining of pain to the left knee and area and difficulty walking. No chest pain, shortness of breath or cough. No abdominal pain or diarrhea. PHYSICAL EXAMINATION: Blood pressure 132/82 with a pulse of 87, temperature 97.5. She is 93% on room air. General description is an elderly female lying in bed in no distress. Respiratory system: Unlabored breathing, decreased intensity of breath sounds. No wheeze. Heart S1, S2. Regular rate and rhythm. Abdomen soft, no tenderness. Left has swelling and tender to touch. No drainage. LABS: Hemoglobin is 10.7, white count 10.60 with creatinine 0.26. Culture has been negative. DIAGNOSTIC IMPRESSION AND PLAN: Patient with left knee pain secondary to acute gouty arthritis with a positive seen on the cultures have been negative. Continue with treatment for underlying gout. Not behaving as septic arthritis. It will be monitored closely off antibiotic therapy. Continue supportive care. MMODL / IJN: [id number] /
[2021-04-23] MEDS: MORPHINE SULFATE 4 MG/ML SYRINGE IV PRN ×5 (02:22→21:35)
[2021-04-23 04:34] LABS: % Iron Saturation 9.7 (12.00-45.00)
[2021-04-23] MEDS: IBUPROFEN 400 MG TAB PO SCH ×4 (08:05→21:36)
[2021-04-23] MEDS: POTASSIUM CHLORIDE ER 20 MEQ TAB.ER PO SCH (08:05)
[2021-04-23] MEDS: FAMOTIDINE 20 MG TAB PO SCH ×2 (08:06→21:36)
[2021-04-23] MEDS: predniSONE 20 MG TAB PO SCH (08:06)
[2021-04-23] MEDS: FUROSEMIDE 20 MG TAB PO SCH (08:06)
[2021-04-23] MEDS: PHENYTOIN SODIUM EXTENDED 100 MG CAP PO SCH ×2 (08:10→21:37)
[2021-04-23] MEDS: SERTRALINE 100 MG TAB PO SCH ×2 (08:10→21:37)
[2021-04-23] MEDS: HYDROCORTISONE SUPPOSITORY 25 MG SUPP RECTAL SCH ×2 (08:11→21:37)
[2021-04-23] MEDS: ARIPiprazole 5 MG TAB PO SCH (08:11)
--- NOTE | 2021-04-23 13:40 | P.PN ---
Subjective Progress Note Date: 04/23/21 Principal diagnosis: left knee arthritis Patient still having severe left knee pain. She still can't get up and walk on it. Her left ankle pain has resolved. No fevers or chills. Objective - Vital Signs Vital signs: Vital Signs Temp 97.5 F L 04/23/21 07:00 Pulse 88 04/23/21 08:00 Resp 16 04/23/21 08:00 BP 143/90 04/23/21 07:00 Pulse Ox 96 04/23/21 07:00 Intake & Output 04/22/21 04/23/21 04/23/21 18:59 06:59 18:59 Intake Total 591 236 Output Total 850 Balance 591 -850 236 Intake: Oral 591 236 Output: Urine 850 Other: Voiding Method External Catheter External Catheter External Catheter # Voids 1 - Exam Constitutional: No acute distress, conversant, pleasant Eyes:Anicteric sclerae, moist conjunctiva, no lid-lag, PERRLA, ENMT: Oropharynx clear, no erythema, exudates Neck: Supple, FROM, no masses, or JVD, No carotid bruits, No thyromegaly Lungs: Clear to auscultation, Clear to percussion, Normal respiratory effort, no accessory muscle use Cardiovascular: Heart regular in rate and rhythm, No murmurs, gallops, or rubs, No peripheral edema Abdominal: Soft, Nontender, no guarding, rebound or rigidity, Normoactive bowel sounds, No hepatomegaly, No splenomegaly, No palpable mass Skin: Normal temperature, tone, texture, turgor, no induration, No subcutaneous nodules, No rash, lesions, No ulcers Extremities: Left knee swollen and warm and tender to touch. No digital cyanosis, No clubbing, Pedal pulses intact and symmetrical, Radial pulses intact and symmetrical, No calf tenderness Psychiatric: Alert and oriented to person, place and time, appropriate affect, intact judgement Neuro: Muscles Strength 5/5 in all 4 extremities, Sensation to light touch grossly present throughout, Cranial nerves II-XII grossly intact, no focal sensory deficits - Labs CBC & Chem 7: 04/22/21 06:59 04/22/21 06:59 Labs: Abnormal Lab Results - Last 24 Hours (Table) 04/21/21 04/22/21 Range/Units 13:00 06:59 Iron 26 L (50-170) ug/dL % Saturation 9.70 L (12.00-45.00) Transferrin 190.0 L (204.0-354.0) mg/dL Synovial Crystals Seen A (None Seen) Microbiology - Last 24 Hours (Table) 04/22/21 06:59 Blood Culture - Preliminary Blood No Growth after 24 hours 04/21/21 10:00 Gram Stain - Preliminary Knee - Left Body Fluid Culture - Preliminary 04/19/21 23:33 Blood Culture - Preliminary Blood No Growth after 72 hours 04/20/21 03:13 Gram Stain - Preliminary Knee - Left Body Fluid Culture - Preliminary 04/20/21 11:00 Gram Stain - Preliminary Knee - Left Body Fluid Culture - Preliminary Assessment and Plan Plan: Acute left knee arthritis likely pseudogout due to presence of pyrophosphate crystals in the synovial fluid status post multiple thoracenteses procedures the left knee with cortisone injection. Acute left ankle arthritis Patient had a vomiting episode with colchicine, continue on scheduled Motrin Prednisone was added 04/22, continue for now 40 mg daily, start a taper once i mproved. Pro calcitonin normal, infection unlikely, Id discontinued antibiotics Search for pseudogout predisposing conditions was essentially negative, PTH ok, no hyperparathyroidism, iron studies don't indicate hemochromatosis Seen by ortho, doing sequential arthrocenteses, MRI ordered of the left knee, showing multiple abnormalities, surgery on the knee currently being considered. Chronic COPD, Hyperlipidemia, Hypertension Stable Resume meds General weakness PT once knee is better Anticipated discharge: 2-3 days Disposition likely back to rehab
[2021-04-23] MEDS: SODIUM CHLORIDE 0.9% 1,000 ML IV SCH (14:34)
--- NOTE | 2021-04-23 19:31 | P.PN ---
Subjective Progress Note Date: 04/23/21 This patient is a 70- year old female with a past medical history of recent GI bleed, colitis, hyperlipidemia, hypertension who presented to [facility] ED on 04/19/21 with complaints of severe left knee pain. Patient states there was no injury. Her knee pain began last week. Patient was recently discharged to subacute rehab after a recent hospital stay for GI bleed. She state her left knee pain gradually worsened until she was unable to bear weight. Therefore she presented to the emergency department. X-rays showed moderate arthritic changes. Her knee was aspirated in the ED, and aspiration was repeated yesterday by our team. Most recent synovial fluid analysis obtained yesterday from the left knee shows nucleated cell count of 14,000 and calcium pyrophosphate crystals were seen. Dr. Josue was consulted by internal medicine, and there is very low concern for septic arthritis at this time. Cultures showing no growth at 24 hours. Antibiotics were discontinued per Dr. Josue today. Colchicine was initiated today per internal medicine, and patient had episode of vomiting following this medication, but now she is having no issues. She is afebrile. 04/23/21: Patient was seen and examined bedside this morning. Patient continues to experience left knee pain. We are following the patient for an acute flare of pseudogout of the left knee. She has undergone three aspirations of her left k nee since admission, and a cortisone injection. Patient is also taking prednisone 40mg daily. She denies fevers, chills. Objective - Vital Signs Vital signs: Vital Signs Temp 97.7 F 04/23/21 19:09 Pulse 80 04/23/21 19:09 Resp 16 04/23/21 19:09 BP 122/73 04/23/21 19:09 Pulse Ox 96 04/23/21 19:09 Intake & Output 04/23/21 04/23/21 04/24/21 06:59 18:59 06:59 Intake Total 709 Output Total 850 700 Balance -850 9 Intake: Oral 709 Output: Urine 850 700 Other: Voiding Method External Catheter External Catheter # Voids 1 1 - Exam On examination, she is sitting up in bed in no distress. She is alert and orientated x3. A focused examination of the left knee is conducted. On inspection of the left knee, there is moderate knee effusion. There is no overlying erythema, warmth. No open wounds. There is diffuse pain with palpation of the knee. I am able to perform gentle ROM of the knee. There is no pain with PROM of the hip. Motor and sensory function intact left lower extremity. Dorsalis pedis pulse palpable. The left lower extremity is warm and well perfused. Calf is soft and non-tender to palpation, no evidence of DVT. On inspection of the left foot, there is mild swelling along the lateral border of the foot. There is diffuse pain with palpation of the lateral ankle and foot. No overlying erythema, warmth. No open wounds. Painless passive ROM of the ankle and toes. - Labs CBC & Chem 7: 04/22/21 06:59 04/22/21 06:59 Labs: Abnormal Lab Results - Last 24 Hours (Table) 04/22/21 Range/Units 06:59 Iron 26 L (50-170) ug/dL % Saturation 9.70 L (12.00-45.00) Transferrin 190.0 L (204.0-354.0) mg/dL Microbiology - Last 24 Hours (Table) 04/22/21 06:59 Blood Culture - Preliminary Blood No Growth after 24 hours 04/21/21 10:00 Gram Stain - Preliminary Knee - Left Body Fluid Culture - Preliminary 04/19/21 23:33 Blood Culture - Preliminary Blood No Growth after 72 hours - Imaging and Cardiology MRI left knee is reviewed. Assessment and Plan Assessment: Pseudogout, acute flare left knee. Left foot pain. Plan: - Patient was also seen by Dr. Najera last evening. No surgical intervention is recommended. - Cultures from previous aspirations continue to show no growth. - Pseudogout management per internal medicine. - Rest, ice, elevate left knee for swelling and pain control. - Physical therapy consult placed for gait and balance training. - We will follow patient closely and make recommendations as needed. We will consider repeat aspiration tomorrow if symptoms persist.
[2021-04-23] MEDS: PANTOPRAZOLE 40 MG TABLET PO SCH (21:36)
[2021-04-23] MEDS: ATORVASTATIN 40 MG TAB PO SCH (21:36)
[2021-04-23] MEDS: traZODone HCL 100 MG TAB PO SCH (21:37)
[2021-04-24] MEDS: MORPHINE SULFATE 4 MG/ML SYRINGE IV PRN ×6 (01:58→22:26)
[2021-04-24] MEDS: SODIUM CHLORIDE 0.9% 1,000 ML IV SCH ×2 (02:04→15:31)
[2021-04-24] MEDS: Acetaminophen-Codeine 300-30mg TAB PO PRN ×2 (08:06→15:04)
[2021-04-24] MEDS: SERTRALINE 100 MG TAB PO SCH ×2 (08:07→20:02)
[2021-04-24] MEDS: PHENYTOIN SODIUM EXTENDED 100 MG CAP PO SCH ×2 (08:07→20:03)
[2021-04-24] MEDS: predniSONE 20 MG TAB PO SCH (08:07)
[2021-04-24] MEDS: IBUPROFEN 400 MG TAB PO SCH ×4 (08:07→22:26)
[2021-04-24] MEDS: FUROSEMIDE 20 MG TAB PO SCH (08:07)
[2021-04-24] MEDS: FAMOTIDINE 20 MG TAB PO SCH ×2 (08:07→20:01)
[2021-04-24] MEDS: POTASSIUM CHLORIDE ER 20 MEQ TAB.ER PO SCH (08:07)
[2021-04-24] MEDS: ARIPiprazole 5 MG TAB PO SCH (08:07)
--- NOTE | 2021-04-24 08:24 | PN ---
PROGRESS NOTE DATE OF SERVICE: 04/23/2021 REASON FOR FOLLOWUP: Left knee gouty arthritis and question of septic arthritis. INTERVAL HISTORY: Patient is afebrile. Still complaining of pain to the left knee area. No chest pain, shortness of breath or cough. No abdominal pain or diarrhea. PHYSICAL EXAMINATION: Blood pressure 122/73 with a pulse of 50. Temperature 97.7. She is 96% on room air. General description is an elderly female lying in bed in no distress. Respiratory system: Unlabored breathing, clear to auscultation anteriorly. Heart S1, S2. Regular rate and rhythm. Abdomen soft, no tenderness. Left knee is currently swollen and wrapped. No drainage. LABS: Hemoglobin is 10.7, white count 10.60, creatinine 0.26. Cultures remain to be negative. DIAGNOSTIC IMPRESSION AND PLAN: Patient with acute left knee pain secondary to acute gouty arthritis. Clinically not behaving as septic arthritis. The patient is being monitored closely off antibiotic therapy. A detailed discussion with the admitting physician. Continue with underlying gouty arthritis and supportive care. MMODL / IJN: [id number] /
[2021-04-24] MEDS: HYDROCORTISONE SUPPOSITORY 25 MG SUPP RECTAL SCH (09:35)
[2021-04-24] MEDS: LIDOCAINE 2% INJ 20 MG/ML (20 ML MDV) MISCELLANE ONE (10:51)
--- NOTE | 2021-04-24 10:59 | P.PN ---
Subjective Progress Note Date: 04/24/21 Principal diagnosis: Left knee pain. Gouty arthritis left knee. This patient is a 70- year old female with a past medical history of recent GI bleed, colitis, hyperlipidemia, hypertension who presented to [facility] ED on 04/19/21 with complaints of severe left knee pain. Patient states there was no injury. Her knee pain began last week. Patient was recently discharged to subacute rehab after a recent hospital stay for GI bleed. She state her left knee pain gradually worsened until she was unable to bear weight. Therefore she presented to the emergency department. X-rays showed moderate arthritic changes. Her knee was aspirated in the ED, and aspiration was repeated yesterday by our team. Most recent synovial fluid analysis obtained yesterday from the left knee shows nucleated cell count of 14,000 and calcium pyrophosphate crystals were seen. Dr. Josue was consulted by internal medicine, and there is very low concern for septic arthritis at this time. Cultures showing no growth at 24 hours. Antibiotics were discontinued per Dr. Josue today. Colchicine was initiated today per internal medicine, and patient had episode of vomiting following this medication, but now she is having no issues. She is afebrile. 04/23/21: Patient was seen and examined bedside this morning. Patient continues to experience left knee pain. We are following the patient for an acute flare of pseudogout of the left knee. She has undergone three aspirations of her left knee since admission, and a cortisone injection. Patient is also taking prednisone 40mg daily. She denies fevers, chills. 04/24/2021: The patient is seen and examined at bedside. She continues to have knee effusion. She complains of continued pain. She is afebrile. She's had no fever or chills. Objective - Vital Signs Vital signs: Vital Signs Temp 97.9 F 04/24/21 07:20 Pulse 77 04/24/21 07:20 Resp 17 04/24/21 07:20 BP 159/90 04/24/21 07:20 Pulse Ox 96 04/24/21 07:20 Intake & Output 04/23/21 04/24/21 04/24/21 18:59 06:59 18:59 Intake Total 709 10 Output Total 700 1200 Balance 9 -1190 Intake: IV 10 Invasive Line 2 10 Oral 709 Output: Urine 700 1200 Other: Voiding Method External Catheter External Catheter External Catheter # Voids 1 - Exam This is a pleasant 70-year-old female in no acute distress. She is alert and oriented 3. Exam of the left knee reveals no erythema or ecchymosis. She has a +1-2 effusion. She has limited motion of the knee secondary to pain. She has full foot and ankle motion without difficulty or pain. Neurovascular status to the lower extremity is intact. - Labs CBC & Chem 7: 04/22/21 06:59 04/22/21 06:59 Labs: Microbiology - Last 24 Hours (Table) 04/22/21 06:59 Blood Culture - Preliminary Blood No Growth after 48 hours 04/19/21 23:33 Blood Culture - Preliminary Blood No Growth after 96 hours 04/21/21 10:00 Gram Stain - Preliminary Knee - Left Body Fluid Culture - Preliminary Assessment and Plan (1) Gouty arthritis of left knee Current Visit: Yes Status: Acute Code(s): M10.9 - GOUT, UNSPECIFIED SNOMED Code(s): 389181063927636 (2) Left knee pain Current Visit: Yes Status: Acute Code(s): M25.562 - PAIN IN LEFT KNEE SNO MED Code(s): 5570013333 Plan: The clinical findings are discussed with the patient. Treatment options are discussed. She is currently on anti-inflammatory per internal medicine. She was given a cortisone injection yesterday. We had discussed possible surgical arthroscopic debridement. However, with her multiple medical comorbidities surgery is not an appropriate option for her at this time. It is recommended she have serial aspirations as needed. The left knee is aspirated today using sterile technique. I used 4 mL of 2% lidocaine for local anesthetic to the lateral aspect of the knee. I aspirated approximately 10 mL of slightly blood-tinged fluid. The patient tolerated the aspiration well. The knee is wrapped with a compressive Cameron wrap. The patient may be discharged back to inpatient rehab. She is to follow-up in our office in 1 week.
--- NOTE | 2021-04-24 11:17 | P.PN ---
Subjective Progress Note Date: 04/24/21 Patient seen and examined at bedside. Patient continues to complain of intractable left knee pain and swelling. Patient states every time she gets it drained the fluid reappears. Patient denies chest pain, shortness of breath, nausea, vomiting, fevers, or chills. Objective - Vital Signs Vital signs: Vital Signs Temp 97.9 F 04/24/21 07:20 Pulse 77 04/24/21 07:20 Resp 17 04/24/21 07:20 BP 159/90 04/24/21 07:20 Pulse Ox 96 04/24/21 07:20 Intake & Output 04/23/21 04/24/21 04/24/21 18:59 06:59 18:59 Intake Total 709 10 Output Total 700 1200 Balance 9 -1190 Intake: IV 10 Invasive Line 2 10 Oral 709 Output: Urine 700 1200 Other: Voiding Method External Catheter External Catheter External Catheter # Voids 1 - Exam General: [non toxic], [no distress], [appears at stated age] Derm: [warm], [dry] Head: [atraumatic], [normocephalic], [symmetric] Eyes: [EOMI], [no lid lag], [anicteric sclera] Mouth: [no lip lesion], [mucus membranes moist] Cardiovascular: [S1S2 reg], [no murmur], [positive posterior tibial pulse bilateral], Lungs: [CTA bilateral], [no rhonchi, no rales] , [no accessory muscle use] Abdominal: [soft], [ nontender to palpation], [no guarding], [no appreciable organomegaly] Ext: [no gross muscle atrophy], [left knee pain and swelling with decreased range of motion], [no contractures] Neuro: [ CN II-XI grossly intact], [no focal neuro deficits] Psych: [Alert], [oriented], [appropriate affect] - Labs CBC & Chem 7: 04/22/21 06:59 04/22/21 06:59 Labs: Microbiology - Last 24 Hours (Table) 04/22/21 06:59 Blood Culture - Preliminary Blood No Growth after 48 hours 04/19/21 23:33 Blood Culture - Preliminary Blood No Growth after 96 hours 04/21/21 10:00 Gram Stain - Preliminary Knee - Left Body Fluid Culture - Preliminary Assessment and Plan Plan: Acute left knee arthritis likely pseudogout due to presence of pyrophosphate crystals in the synovial fluid status post multiple thoracenteses procedures the left knee with cortisone injection. Patient continues to have intractable pain and swelling Acute left ankle arthritis continue on scheduled Motrin Prednisone was added 04/22, continue for now 40 mg daily, start a taper once i mproved. Pro calcitonin normal, infection unlikely, Id discontinued antibiotics Search for pseudogout predisposing conditions was essentially negative, PTH ok, no hyperparathyroidism, iron studies don't indicate hemochromatosis Seen by ortho, doing sequential arthrocenteses, MRI ordered of the left knee, showing multiple abnormalities Orthopedic recommendations appreciated Pain control Chronic COPD, Hyperlipidemia, Hypertension Stable Resume meds General weakness PT once knee is better GI DVT prophylaxis A.m. labs Anticipated discharge: 2-3 days Disposition likely back to rehab
[2021-04-24] MEDS: traZODone HCL 100 MG TAB PO SCH (20:01)
[2021-04-24] MEDS: PANTOPRAZOLE 40 MG TABLET PO SCH (20:01)
[2021-04-24] MEDS: ATORVASTATIN 40 MG TAB PO SCH (20:02)
--- NOTE | 2021-04-24 22:21 | PN ---
PROGRESS NOTE DATE OF SERVICE: 04/24/2021 REASON FOR FOLLOWUP: Left knee pain concerning for gouty arthritis. INTERVAL HISTORY: The patient is afebrile. Still complaining of pain to the left knee area, but no worsening. No chest pain, shortness of breath or cough. No nausea, no vomiting. No abdominal pain or diarrhea. PHYSICAL EXAMINATION: Blood pressure 122/81 with a pulse of 98, temperature 97.9. She is 95% on 2 L nasal cannula. General description is an elderly female lying in bed in no distress. Respiratory system: Unlabored breathing, clear to auscultation anteriorly. Heart S1, S2. Regular rate and rhythm. Abdomen soft, no tenderness. Left knee is currently dressed. No obvious drainage on the dressing. LABS: Hemoglobin is 10.7, white count 10.6, creatinine 0.26. DIAGNOSTIC IMPRESSION AND PLAN: Patient with left knee pain, possible gouty arthritis. Clinically not behaving as septic arthritis. Patient is currently off antibiotics and the cultures remain negative. Continue supportive care. MMODL / IJN: [id number] /
[2021-04-25] MEDS: HYDROCORTISONE SUPPOSITORY 25 MG SUPP RECTAL SCH ×3 (00:07→20:17)
[2021-04-25] MEDS: SODIUM CHLORIDE 0.9% 1,000 ML IV SCH ×2 (02:40→18:20)
[2021-04-25] MEDS: MORPHINE SULFATE 4 MG/ML SYRINGE IV PRN ×5 (02:41→21:32)
[2021-04-25 07:28] LABS: ALT 14 U/L (4-34); African American GFR (CKD) >90 (>60 ml/min/1.73 sqM); Albumin 2.9 g/dL (3.5-5.0); Anion Gap 7 mmol/L; Blood Urea Nitrogen 8 mg/dL (7-17); Carbon Dioxide 21 mmol/L (22-30); Chloride 105 mmol/L (98-107); Globulin 2.9 g/dL; Glucose 88 mg/dL (74-99); Non-African American GFR(CKD) >90 (>60 ml/min/1.73 sqM); Sodium 133 mmol/L (137-145); Total Bilirubin 0.5 mg/dL (0.2-1.3); Total Protein 5.8 g/dL (6.3-8.2)
[2021-04-25 07:34] LABS: AST 35 U/L (14-36); Alkaline Phosphatase 87 U/L (38-126); Potassium 3.9 mmol/L (3.5-5.1)
[2021-04-25] MEDS: ARIPiprazole 5 MG TAB PO SCH (07:50)
[2021-04-25] MEDS: IBUPROFEN 400 MG TAB PO SCH ×4 (07:50→21:31)
[2021-04-25] MEDS: FUROSEMIDE 20 MG TAB PO SCH (07:50)
[2021-04-25] MEDS: PHENYTOIN SODIUM EXTENDED 100 MG CAP PO SCH ×2 (07:50→20:17)
[2021-04-25] MEDS: FAMOTIDINE 20 MG TAB PO SCH ×2 (07:50→20:17)
[2021-04-25] MEDS: SERTRALINE 100 MG TAB PO SCH ×2 (07:50→20:18)
[2021-04-25] MEDS: predniSONE 20 MG TAB PO SCH (07:50)
[2021-04-25] MEDS: POTASSIUM CHLORIDE ER 20 MEQ TAB.ER PO SCH (07:50)
[2021-04-25 07:54] LABS: Basophils % (A) 0 %; Eosinophils # (A) 0.1 k/uL (0-0.7); Eosinophils % (A) 1 %; HCT 35.6 % (34.0-46.0); HGB 11.5 gm/dL (11.4-16.0); Lymphocytes # (A) 1.7 k/uL (1.0-4.8); Lymphocytes % (A) 11 %; MCH 35.2 pg (25.0-35.0); MCHC 32.4 g/dL (31.0-37.0); MCV 108.5 fL (80.0-100.0); Macrocytosis Moderate; Mean Platelet Volume 7.6; Monocytes # (A) 1.1 k/uL (0-1.0); Monocytes % (A) 8 %; Neutrophils # (A) 12.1 k/uL (1.3-7.7); Neutrophils % (A) 80 %; Platelet Count 386 k/uL (150-450); RBC 3.28 m/uL (3.80-5.40); RDW 11.8 % (11.5-15.5); WBC 15.1 k/uL (3.8-10.6)
--- NOTE | 2021-04-25 09:24 | P.PN ---
Subjective Patient seen and examined at bedside. Patient continues to complain of intractable left knee pain and swelling, but slightly improved from yesterday Knee swelling is better today. Patient denies chest pain, shortness of breath, nausea, vomiting, fevers, or chills. Objective - Vital Signs Vital signs: Vital Signs Temp 98 F 04/25/21 07:25 Pulse 90 04/25/21 07:25 Resp 17 04/25/21 07:25 BP 146/83 04/25/21 07:25 Pulse Ox 97 04/25/21 07:25 Intake & Output 04/24/21 04/25/21 04/25/21 18:59 06:59 18:59 Intake Total 118 200 Output Total 1200 Balance -1082 200 Intake: Oral 118 200 Output: Urine 1200 Other: Voiding Method External Catheter External Catheter External Catheter # Voids 1 2 - Exam General: [non toxic], [no distress], [appears at stated age] Derm: [warm], [dry] Head: [atraumatic], [normocephalic], [symmetric] Eyes: [EOMI], [no lid lag], [anicteric sclera] Mouth: [no lip lesion], [mucus membranes moist] Cardiovascular: [S1S2 reg], [no murmur], [positive posterior tibial pulse bilateral], Lungs: [CTA bilateral], [no rhonchi, no rales] , [no accessory muscle use] Abdominal: [soft], [ nontender to palpation], [no guarding], [no appreciable organomegaly] Ext: [no gross muscle atrophy], [left knee pain and swelling with decreased range of motion slightly improved], [no contractures] Neuro: [ CN II-XI grossly intact], [no focal neuro deficits] Psych: [Alert], [oriented], [appropriate affect] - Labs CBC & Chem 7: 04/25/21 07:14 04/25/21 06:35 Labs: Abnormal Lab Results - Last 24 Hours (Table) 04/25/21 04/25/21 Range/Units 06:35 07:14 WBC 15.1 H (3.8-10.6) k/uL RBC 3.28 L (3.80-5.40) m/uL MCV 108.5 H (80.0-100.0) fL MCH 35.2 H (25.0-35.0) pg Neutrophils # 12.1 H (1.3-7.7) k/uL Monocytes # 1.1 H (0-1.0) k/uL Sodium 133 L (137-145) mmol/L Carbon Dioxide 21 L (22-30) mmol/L Creatinine 0.33 L (0.52-1.04) mg/dL Total Protein 5.8 L (6.3-8.2) g/dL Albumin 2.9 L (3.5-5.0) g/dL Microbiology - Last 24 Hours (Table) 04/19/21 23:33 Blood Culture - Preliminary Blood No Growth after 120 hours 04/21/21 10:00 Gram Stain - Preliminary Knee - Left Body Fluid Culture - Preliminary 04/20/21 11:00 Gram Stain - Preliminary Knee - Left Body Fluid Culture - Preliminary 04/20/21 03:13 Gram Stain - Preliminary Knee - Left Body Fluid Culture - Preliminary 04/22/21 06:59 Blood Culture - Preliminary Blood No Growth after 48 hours Assessment and Plan Plan: Acute left knee arthritis likely pseudogout due to presence of pyrophosphate crystals in the synovial fluid status post multiple aspiration procedures the left knee with cortisone injection. Patient continues to have intractable pain and swelling Acute left ankle arthritis continue on scheduled Motrin Prednisone was added 04/22, continue for now 40 mg daily, start a taper once improved. Pro calcitonin normal, infection unlikely, Id discontinued antibiotics Search for pseudogout predisposing conditions was essentially negative, PTH ok, no hyperparathyroidism, iron studies don't indicate hemochromatosis Seen by ortho, doing sequential arthrocenteses, MRI ordered of the left knee, showing multiple abnormalities Orthopedic recommendations appreciated Pain control Chronic COPD, Hyperlipidemia, Hypertension Stable Resume meds General weakness PT once knee is better GI DVT prophylaxis A.m. labs Anticipated discharge: 2-3 days Disposition likely back to rehab
[2021-04-25] MEDS: Acetaminophen-Codeine 300-30mg TAB PO PRN (15:11)
[2021-04-25] MEDS: PANTOPRAZOLE 40 MG TABLET PO SCH (20:17)
[2021-04-25] MEDS: ATORVASTATIN 40 MG TAB PO SCH (20:17)
[2021-04-25] MEDS: traZODone HCL 100 MG TAB PO SCH (20:18)
--- NOTE | 2021-04-25 23:47 | PN ---
PROGRESS NOTE DATE OF SERVICE: 04/25/2021 REASON FOR FOLLOWUP: Left knee pain concerning for gouty arthritis. INTERVAL HISTORY: The patient is afebrile. She is breathing comfortably. Pain to the left knee is slightly decreased. No chest pain, shortness of breath or cough. No abdominal pain or diarrhea. PHYSICAL EXAMINATION: Blood pressure 143/80 with a pulse of 73, temperature 98.1. She is 93% on room air. General description is an elderly female lying in bed in no distress. Respiratory system: Unlabored breathing, clear to auscultation anteriorly. Heart S1, S2. Regular rate and rhythm. Abdomen soft, no tenderness. Left knee is currently dressed. No obvious drainage on the dressing. LABS: Hemoglobin is 11.5, white count 15.1. Creatinine 0.63. Cultures remain negative. DIAGNOSTIC IMPRESSION AND PLAN: 1. Patient with left knee pain clinically suspicious for acute gouty arthritis. Clinically not behaving as septic arthritis. Cultures have been negative off antibiotic therapy. 2. Elevated white count, more likely steroid-related. Will monitor closely. MMODL / IJN: [id number] /
[2021-04-26] MEDS: Acetaminophen-Codeine 300-30mg TAB PO PRN ×2 (01:48→16:14)
[2021-04-26 02:24] VITALS: RESP 18
[2021-04-26] MEDS: MORPHINE SULFATE 4 MG/ML SYRINGE IV PRN ×4 (03:24→16:46)
[2021-04-26 06:04] LABS: Basophils % (A) 0 %; Eosinophils # (A) 0.3 k/uL (0-0.7); Eosinophils % (A) 2 %; HCT 34.7 % (34.0-46.0); HGB 11.4 gm/dL (11.4-16.0); Lymphocytes # (A) 1.7 k/uL (1.0-4.8); Lymphocytes % (A) 13 %; MCH 34.6 pg (25.0-35.0); MCV 104.9 fL (80.0-100.0); Macrocytosis Slight; Mean Platelet Volume 7.6; Monocytes # (A) 0.6 k/uL (0-1.0); Monocytes % (A) 5 %; Neutrophils # (A) 10.9 k/uL (1.3-7.7); Neutrophils % (A) 80 %; Platelet Count 343 k/uL (150-450); RDW 12.7 % (11.5-15.5); WBC 13.7 k/uL (3.8-10.6)
[2021-04-26 06:34] LABS: ALT 12 U/L (4-34); African American GFR (CKD) >90 (>60 ml/min/1.73 sqM); Albumin 2.8 g/dL (3.5-5.0); Anion Gap 4 mmol/L; Blood Urea Nitrogen 6 mg/dL (7-17); Calcium 9.3 mg/dL (8.4-10.2); Carbon Dioxide 28 mmol/L (22-30); Chloride 103 mmol/L (98-107); Globulin 2.8 g/dL; Glucose 87 mg/dL (74-99); Non-African American GFR(CKD) >90 (>60 ml/min/1.73 sqM); Sodium 135 mmol/L (137-145); Total Bilirubin 0.3 mg/dL (0.2-1.3); Total Protein 5.6 g/dL (6.3-8.2)
[2021-04-26 06:42] LABS: AST 22 U/L (14-36); Alkaline Phosphatase 87 U/L (38-126); Potassium 4.2 mmol/L (3.5-5.1)
[2021-04-26] MEDS: predniSONE 20 MG TAB PO SCH (07:38)
[2021-04-26] MEDS: PHENYTOIN SODIUM EXTENDED 100 MG CAP PO SCH (07:38)
[2021-04-26] MEDS: IBUPROFEN 400 MG TAB PO SCH ×2 (07:38→12:43)
[2021-04-26] MEDS: ARIPiprazole 5 MG TAB PO SCH (07:38)
[2021-04-26] MEDS: SODIUM CHLORIDE 0.9% 1,000 ML IV SCH (07:38)
[2021-04-26] MEDS: FUROSEMIDE 20 MG TAB PO SCH (07:39)
[2021-04-26] MEDS: FAMOTIDINE 20 MG TAB PO SCH (07:39)
[2021-04-26] MEDS: HYDROCORTISONE SUPPOSITORY 25 MG SUPP RECTAL SCH (07:39)
[2021-04-26] MEDS: POTASSIUM CHLORIDE ER 20 MEQ TAB.ER PO SCH (07:39)
[2021-04-26] MEDS: SERTRALINE 100 MG TAB PO SCH (07:39)
[2021-04-26 14:27] VITALS: BP 111/61; PULSE 78; TEMP 97.8
--- NOTE | 2021-04-26 15:05 | P.DS ---
Providers Date of admission: 04/22/21 14:46 Expected date of discharge: 04/26/21 Attending physician: Torres Ya MD Consults: 04/20/21 04:33 Consult Physician Routine Consulting Provider: Fantasma Najera Consult Reason/Comments: L knee arthralgia Do you want consulting provider notified?: Yes 04/20/21 10:18 Consult Physician Routine Consulting Provider: Torres Ya Consult Reason/Comments: PCP Do you want consulting provider notified?: Yes 04/20/21 16:06 Consult Physician Routine Consulting Provider: Yola Josue Consult Reason/Comments: knee pain Do you want consulting provider notified?: Yes Primary care physician: Dipesh Oswald MD Hospital Course: Discharge Diagnosis: Acute left knee arthritis likely pseudogout due to presence of pyrophosphate crystals in the synovial fluid status post multiple aspiration procedures the left knee with cortisone injection. Acute left ankle arthritis COPD, not in acute exacerbation Hyperlipidemia Hypertension General weakness Hospital Course: Patient is a 70-year-old female with a past medical history of COPD not on home oxygen dependent, hyperlipidemia, and hypertension. She presented to the hospital on 04/19/21with a chief complaint of left knee pain. patient was admitted under services of consultation to geophysical support specialist. Throughout hospitalization, patient underwentmultiple aspirations of left knee synovial fluid which revealed nucleated cell count of 14,000 and calcium pyrophosphate c rystals. Infectious disease was consulted. patient diagnosed with pseudogout of left knee. Pt received cortisone injection in left knee by orthopedic surgery. blood culture showing no growth after 144 hours, gram stains and cultures of left knee negative. Patient cleared from orthopedic standpoint with recommendations for rest, ice, elevation, and compression. PT/OT evaluated patient recommending ambulation with rolling walker and assistance as needed and also recommending rehabilitation with PT/OT upon discharge. Patient medically stable for discharge at this time as well. Arrangements have been made for patient to be transferred to [facility] for continued PT/OT with goals of increasing therapeutic activity and weightbearing. Physical Examination: Patient seen and examined at bedside. She reports continued pain in her left knee and ankle in which she states being currently controlled but worsening with movement and upon weightbearing. Discussed with patient plans for discharge. Cameron dressing in place for compression and left knee elevated on pillow. Vital signs reviewed and stable. General: Nontoxic, no distress and appears stated age. Derm: Skin warm and dry, normal coloration for ethnicity. Head: Atraumatic, normocephalic and symmetric. Eyes: EOMs intact, no lid lag, and anicteric sclera Mouth: no lip lesions, mucus membranes moist Cardiovascular: regular rate and rhythm with normal S1S2, no murmur, positive posterior tibial pulses bilaterally, and cap refill < 2 seconds. Lungs: Respirations even, regular, and unlabored on room air. Lungs CTA bilaterally, no rhonchi, no rales, no wheezing, and no accessory muscle usage. Abdominal: soft, nontender to palpation, no guarding, no appreciable organomegaly Ext: ROM intact. No gross muscle atrophy, no edema, no contractures Neuro: Speech clear, face symmetrical and CN II-XII grossly intact with no noted focal neuro deficits Psych: Alert and oriented to person, place, time, and situation. Appropriate and pleasant affect. A total of 45 minutes of time were spent preparing this complex discharge summary. Patient Condition at Discharge: Stable Plan - Discharge Summary Discharge Rx Participant: No New Discharge Prescriptions: New Ibuprofen [Motrin] 400 mg PO QID tab predniSONE [Deltasone] 40 mg PO DAILY 5 Days #10 tab Continue Furosemide [Lasix] 20 mg PO DAILY@0900 ARIPiprazole [Abilify] 5 mg PO DAILY@0900 Acetaminophen Tab [Tylenol] 650 mg PO Q6HR PRN tab PRN Reason: Mild Pain Or Fever > 100.5 Acetaminophen-Codeine 300-30mg [Tylenol w/codeine #3] 1 tab PO Q6H PRN PRN Reason: Pain Sertraline [Zoloft] 100 mg PO BID Ondansetron [Zofran] 4 mg PO Q8HR PRN PRN Reason: Nausea Phenytoin Sodium Extended [Dilantin] 100 mg PO BID Atorvastatin [Lipitor] 40 mg PO HS@2100 Hydrocortisone Suppository [Anusol-Hc] 25 mg RECTAL BID@0900,2100 traZODone HCL [Desyrel] 100 mg PO HS Potassium Chloride [Klor-Con 20] 20 meq PO DAILY@0900 Omeprazole [PriLOSEC] 20 mg PO HS Discharge Medication List ARIPiprazole [Abilify] 5 mg PO DAILY@0900 03/27/21 [History] Atorvastatin [Lipitor] 40 mg PO HS@2100 03/27/21 [History] Furosemide [Lasix] 20 mg PO DAILY@0900 03/27/21 [History] Acetaminophen Tab [Tylenol] 650 mg PO Q6HR PRN tab 04/02/21 [Rx] Hydrocortisone Suppository [Anusol-Hc] 25 mg RECTAL BID@0900,2100 04/06/21 [History] Acetaminophen-Codeine 300-30mg [Tylenol w/codeine #3] 1 tab PO Q6H PRN 04/20/21 [History] Omeprazole [PriLOSEC] 20 mg PO HS 04/20/21 [History] Ondansetron [Zofran] 4 mg PO Q8HR PRN 04/20/21 [History] Phenytoin Sodium Extended [Dilantin] 100 mg PO BID 04/20/21 [History] Potassium Chloride [Klor-Con 20] 20 meq PO DAILY@0900 04/20/21 [History] Sertraline [Zoloft] 100 mg PO BID 04/20/21 [History] traZODone HCL [Desyrel] 100 mg PO HS 04/20/21 [History] Ibuprofen [Motrin] 400 mg PO QID tab 04/26/21 [Rx] predniSONE [Deltasone] 40 mg PO DAILY 5 Days #10 tab 04/26/21 [Rx] Follow up Appointment(s)/Referral(s): Dipesh Oswald MD [Primary Care Provider] - 1-2 days Fantasma Najera MD [Medical Doctor] - 1 Week Activity/Diet/Wound Care/Special Instructions: Continue physical therapy for her left knee. May keep compressive Cameron wrap on left knee as needed for comfort. Follow-up with Dr. Najera in one week. Discharge Disposition: TRANSFER TO SNF/ECF
--- NOTE | 2021-04-26 19:51 | PN ---
PROGRESS NOTE DATE OF SERVICE: 04/26/2021 REASON FOR FOLLOWUP: 1. Left knee pain. 2. Leukocytosis. INTERVAL HISTORY: The patient is afebrile. The patient is feeling better, breathing comfortably. Left knee pain has slightly decreased in intensity. No chest pain, shortness of breath of cough. No abdominal pain or diarrhea; in fact, patient is constipated. PHYSICAL EXAMINATION: Blood pressure 111/61, pulse of 70, temperature 97.8. He is 96% on 2 L nasal cannula. General description is an elderly female lying in bed in no distress. Respiratory system: Unlabored breathing, clear to auscultation anteriorly. Heart S1, S2. Regular rate and rhythm. Abdomen soft, no tenderness. Left knee is currently dressed. No obvious drainage on the dressing. LABS: Hemoglobin is 11.4, white count 13.7, creatinine 0.30. DIAGNOSTIC IMPRESSION AND PLAN: 1. Patient with left knee pain, likely secondary to gouty arthritis. Clinically not behaving as septic arthritis, with negative cultures, and the patient is currently off antibiotic therapy. More likely gouty arthritis. 2. Elevated white count, more likely steroid-related. No evidence of any worsening infection. Continue with supportive care. MMODL / IJN: [id number] /
== END 2021-04-26 16:45 | DRG 554 ==
LOC: EC 22:28 → 6NMEDSUR 04-20 04:32 → OBSVTOIN 04-22 14:46
PROVIDERS: ADMIT Internal Medicine; ATTEND Internal Medicine
DX: M11.262 Other chondrocalcinosis, left knee (principal); E78.5 Hyperlipidemia, unspecified; F41.9 Anxiety disorder, unspecified; I10 Essential (primary) hypertension; J44.9 Chronic obstructive pulmonary disease, unspecified; M06.9 Rheumatoid arthritis, unspecified; M19.072 Primary osteoarthritis, left ankle and foot; Z79.899 Other long term (current) drug therapy; Z87.891 Personal history of nicotine dependence; Z90.710 Acquired absence of both cervix and uterus; Z20.822 Contact with and (suspected) exposure to COVID-19; K52.9 Noninfective gastroenteritis and colitis, unspecified
CPT/HCPCS: 36415; 80048; 80053; 82728; 82945; 83540; 83550; 83735; 83970; 84100; 84145; 84157; 84466; 85025; 85652; 86140; 87040; 87070; 87205; 87635; 89050; 89060; 96374; 96376; 99285

== ENCOUNTER → 2022-03-18 | Outpatient (CLI) | payer MEDICARE, OTHER ==
[2022-03-18 18:20] LABS: Basophils # (A) 0.07 X 10*3/uL (0.00-0.10); Basophils % (A) 0.6 %; Eosinophils # (A) 0.06 X 10*3/uL (0.04-0.35); Eosinophils % (A) 0.5 %; HCT 37.6 % (37.2-46.3); HGB 12.5 g/dL (12.0-15.0); Immature Grans, Automated 0.4 %; Lymphocytes # (A) 1.94 X 10*3/uL (0.90-5.00); Lymphocytes % (A) 17.6 %; MCH 33.9 pg (27.0-32.0); MCHC 33.2 g/dL (32.0-37.0); MCV 101.9 fL (80.0-97.0); Monocytes # (A) 0.77 X 10*3/uL (0.20-1.00); NRBC Per 100 WBC 0 /100 WBCS (0.0-0.0); Neutrophils # (A) 8.14 X 10*3/uL (1.80-7.70); Neutrophils % (A) 73.9 %; Platelet Count 253 X 10*3/uL (140-440); RBC 3.69 X 10*6/uL (4.10-5.20); RDW 13.3 % (11.5-14.5); WBC 11.02 X 10*3/uL (4.50-10.00)
[2022-03-18 18:37] LABS: ALT 77 U/L (8-44); AST 189 U/L (13-35); African American GFR (CKD) 119.8 (60.0-200.0); Albumin 3.8 g/dL (3.8-4.9); Albumin/Globulin Ratio 1.31 (1.60-3.17); Alkaline Phosphatase 247 U/L (41-126); BUN/Creat Ratio 10.75 Ratio (12.00-20.00); Blood Urea Nitrogen 4.3 mg/dL (9.0-27.0); Calcium 8.9 mg/dL (8.7-10.3); Carbon Dioxide 22.3 mmol/L (20.0-27.5); Chloride 99 mmol/L (96-109); Chol/HDL Ratio 1.88 Ratio; Globulin 2.9 g/dL (1.6-3.3); Glucose 114 mg/dL (70-110); LDL Cholesterol,Calculated 60.6 mg/dL (0.0-131.0); Non-African American GFR(CKD) 103.3 (60.0-200.0); Potassium 3.4 mmol/L (3.5-5.5); Sodium 135 mmol/L (135-145); Total Protein 6.7 g/dL (6.2-8.2)
== END | disposition home or self-care (01) ==
LOC: LABWHC1 10:43
PROVIDERS: ATTEND Family Medicine
DX: I48.91 Unspecified atrial fibrillation (principal); R94.31 Abnormal electrocardiogram [ECG] [EKG]
CPT/HCPCS: 36415; 80053; 80061; 84443; 85025; 93005

== ENCOUNTER → 2022-05-26 | Outpatient (CLI) | payer MEDICARE, OTHER ==
--- NOTE | 2022-05-26 10:32 | CA ---
Lexiscan Nuclear Stress Test Report Name: Bhumi Cook Exam Date: 05/26/2022 09:45 Exam Location: [facility] Ht (in): 62 Wt (lb): 148 BSA: 1.68 Ordering Phys: Alma Flores DO Referring Phys: ALMA FLORES,, Technologist: Marianne Hatch RDCS Age: 71 Gender: F : 1950 Procedure CPT: Indications: i10 ICD-10 Codes: Patient History: Short of breath and palpitations Medications: Meds past 24 hrs: Pretest Chest Pain: STRESS TEST Lexiscan Protocol Exercise Duration (min:sec): 02:[address] Depressions (mm): Angina Score: Hassan Score: Resting HR (bpm): 94 Peak HR (bpm): 114 Resting BP (mmHg): 130 / 76 Peak BP (mmHg): 128 / 74 MPHR: 147 Target HR: 125 % MPHR: 78 METS: 1.0 Total Dose: Peak Dose: Atropine: Double Product: 17484 BP Response: Stress Termination: Infusion complete Stress Symptoms: No chest pain or symptoms Stress Summary: ECG ANALYSIS Resting ECG: Normal sinus rhythm normal axis normal intervals Stress ECG: No ST segment depression CONCLUSIONS Negative stress test by EKG criteria Cardiolite portion of the stress test will be reported separately Dr. Kel Cook MD (Electronically Signed) Final Date: 26 May 2022 10:31
--- NOTE | 2022-05-26 13:09 | NM ---
EXAMINATION TYPE: NM stress lexiscan cardiolite DATE OF EXAM: 05/26/2022 COMPARISON: NONE HISTORY: Chest pain TECHNIQUE: After the intravenous administration of 9.8 mCi Tc 99m Sestamibi - Cardiolite resting SPE CT images acquired 45 minutes post injection. The patient received 0.4mg Lexiscan, 25.4 mCi Tc 99m Sestamibi - Stress images obtained [address] injection FINDINGS: Review of stress and rest SPECT images demonstrates no distinct perfusion abnormality. Gated analysi s shows normal wall motion with an estimated left ventricular ejection fraction of 85 %. IMPRESSION: No scintigraphic evidence for reversible ischemia.
== END | disposition home or self-care (01) ==
LOC: RADNMMAIN 07:33
PROVIDERS: ATTEND Family Medicine
DX: I10 Essential (primary) hypertension (principal); I48.92 Unspecified atrial flutter
CPT/HCPCS: 93017; 78452; A9500

== ENCOUNTER 2023-03-26 21:25 | Inpatient (IN) | payer MEDICARE, OTHER ==
--- NOTE | 2023-03-26 21:34 | ED ---
General Adult HPI - General Source: patient, EMS Mode of arrival: EMS Limitations: no limitations <Edgard Osborn - Last Filed: 03/27/23 01:26> <Ana Lilia Cyr - Last Filed: 03/27/23 02:33> - General Chief complaint: Fall Stated complaint: Fall, hip pain Time Seen by Provider: 03/26/23 21:34 - History of Present Illness Initial comments: Patient presents to the ED by ambulance from her assisted living facility for evaluation status post fall. Patient states that she reflexively moved to try to catch something that fell off of the fridge, which caused her to lose her balance and fall down. Patient states that she fell backwards, and she states that she has been having left lumbar back pain and left hip pain since falling. Patient states that she was unable to get up on her own, so she called for assistance, and an ambulance was called for her. Patient denies any other injury or site of pain. Patient denies head injury, LOC, headache, focal numbness/weakness/neuro deficit, neck/upper back/upper extremity pain, chest pain or pressure, dyspnea, dizziness, abdominal pain, nausea or vomiting, or any other symptoms or complaints. Patient is on Eliquis anticoagulation therapy due to atrial fibrillation. (Edgard Osborn) - Related Data Home Medications Medication Instructions Recorded Confirmed ARIPiprazole [Abilify] 5 mg PO DAILY@0900 03/27/21 04/19/21 Atorvastatin [Lipitor] 40 mg PO HS@209903/27/21 04/19/21 Furosemide [Lasix] 20 mg PO DAILY@0900 03/27/21 04/19/21 Hydrocortisone Suppository 25 mg RECTAL BID@899,209904/06/21 04/19/21 [Anusol-Hc] Acetaminophen-Codeine 300-30mg 1 tab PO Q6H PRN 04/20/21 04/20/21 [Tylenol w/codeine #3] Omeprazole [PriLOSEC] 20 mg PO HS 04/20/21 04/20/21 Ondansetron [Zofran] 4 mg PO Q8HR PRN 04/20/21 04/20/21 Phenytoin Sodium Extended 100 mg PO BID 04/20/21 04/20/21 [Dilantin] Potassium Chloride [Klor-Con 20] 20 meq PO DAILY@0900 04/20/21 04/20/21 Sertraline [Zoloft] 100 mg PO BID 04/20/21 04/20/21 traZODone HCL [Desyrel] 100 mg PO HS 04/20/21 04/20/21 Previous Rx's Medication Instructions Recorded Acetaminophen Tab [Tylenol] 650 mg PO Q6HR PRN tab 04/02/21 Ibuprofen [Motrin] 400 mg PO QID tab 04/26/21 predniSONE [Deltasone] 40 mg PO DAILY 5 Days #10 tab 04/26/21 Allergies Allergy/AdvReac Type Severity Reaction Status Date / Time Penicillins Allergy Rash/Hives Verified 03/26/23 21:34 Review of Systems ROS Other: All systems not noted in ROS Statement are negative. <Edgard Osborn - Last Filed: 03/27/23 01:26> ROS Other: All systems not noted in ROS Statement are negative. <Ana Lilia Cyr - Last Filed: 03/27/23 02:33> ROS Statement: Those systems with pertinent positive or pertinent negative responses have been documented in the HPI. Past Medical History Past Medical History: COPD, Hyperlipidemia, Hypertension History of Any Multi-Drug Resistant Organisms: None Reported Past Surgical History: Appendectomy, Hysterectomy, Orthopedic Surgery, Tonsi llectomy Additional Past Surgical History / Comment(s): right hand, right/left shoulder Past Anesthesia/Blood Transfusion Reactions: No Reported Reaction Past Psychological History: Anxiety Smoking Status: Former smoker Past Alcohol Use History: Occasional Past Drug Use History: None Reported <Edgard Osborn - Last Filed: 03/27/23 01:26> General Exam Limitations: no limitations General appearance: alert, in no apparent distress Head exam: Present: atraumatic, normocephalic Eye exam: Present: normal appearance, PERRL, EOMI ENT exam: Present: mucous membranes moist, TM's normal bilaterally Neck exam: Present: normal inspection, full ROM, other (Trachea is in midline). Absent: tenderness Respiratory exam: Present: normal lung sounds bilaterally. Absent: respiratory distress, wheezes, rales, rhonchi, stridor, chest wall tenderness Cardiovascular Exam: Present: regular rate, normal rhythm, normal heart sounds, other (Normal radial pulses bilaterally) GI/Abdominal exam: Present: soft. Absent: distended, tenderness, guarding Extremities exam: Present: other (Anterior and lateral left hip tenderness; decreased range of motion at left hip due to pain; pelvis is stable). Absent: pedal edema Back exam: Present: other (Left lumbar back tenderness). Absent: CVA tenderness (R), CVA tenderness (L) Neurological exam: Present: alert, oriented X3, other (No saddle anesthesia). Absent: motor sensory deficit Psychiatric exam: Present: normal affect Skin exam: Present: warm, dry, intact, normal color <Edgard Osborn - Last Filed: 03/27/23 01:26> Course Vital Signs 03/26/23 03/26/23 03/27/23 21:29 22:09 00:13 Temperature 97.8 F Pulse Rate 88 64 92 Respiratory 18 18 18 Rate Blood Pressure 128/75 135/59 117/73 O2 Sat by Pulse 98 99 94 L Oximetry Medical Decision Making <Edgard Osborn - Last Filed: 03/27/23 01:26> <Ana Lilia Cyr - Last Filed: 03/27/23 02:33> - Medical Decision Making Was pt. sent in by a medical professional or institution (, PA, FINE ARTS CHAIR, urgent care, hospital, or [facility]...) When possible be specific @ -No Did you speak to anyone other than the patient for history (EMS, parent, family, police, friend...)? What history was obtained from this source @ -No Did you review nursing and triage notes (agree or disagree)? Why? @ -I reviewed and agree with nursing and triage notes Were old charts reviewed (outside hosp., previous admission, EMS record, old EKG, old radiological studies, urgent care reports/EKG's, [facility] records)? Report findings @ -No old charts were reviewed Differential Diagnosis (chest pain, altered mental status, abdominal pain women, abdominal pain men, vaginal bleeding, weakness, fever, dyspnea, syncope, headache, dizziness, GI bleed, back pain, seizure, CVA, palpatations, mental health, musculoskeletal)? @ -Fall, contusion, sprain, strain, fracture, dislocation, DDD, DJD, herniated disc disease EKG interpreted by me (3pts min.). @ -None done X-rays interpreted by me (1pt min.). @ -None done CT interpreted by me (1pt min.). @ -Pending at this time U/S interpreted by me (1pt. min.). @ -None done What testing was considered but not performed or refused? (CT, X-rays, U/S, labs)? Why? @ -None What meds were considered but not given or refused? Why? @ -None Did you discuss the management of the patient with other professionals (professionals i.e. DrSue, PA, FINE ARTS CHAIR, lab, RT, psych nurse, geriatric social work professor, senior human resources representative, teacher, canine enforcement officer, counter caser)? Give summary @ -No Was smoking cessation discussed for >3mins.? @ -No Was critical care preformed (if so, how long)? @ -No Were there social determinants of health that impacted care today? How? (Homelessness, low income, unemployed, alcoholism, drug addiction, transportation, low edu. Level, literacy, decrease access to med. care, m[facility], rehab)? @ -No Was there de-escalation of care discussed even if they declined (Discuss DNR or withdrawal of care, Hospice)? DNR status @ -No What co-morbidities impacted this encounter? (DM, HTN, Smoking, COPD, CAD, Cancer, CVA, ARF, Chemo, Hep., AIDS, mental health diagnosis, sleep apnea, morb id obesity)? @ -None Was patient admitted / discharged? Hospital course, mention meds given and route, prescriptions, significant lab abnormalities, going to OR and other pertinent info. @ -Patient presents to the ED complaining of having left lumbar and left hip pain status post mechanical fal from standing. Noncontrast CTs of the patient's lumbar spine and pelvis were ordered, but reports are still pending at this time. Patient was endorsed to Dr. Cyr (secondary to end of my shift). Dr. Cyr to follow up on the patient's CT reports and to take over care of the patient at this time. (Edgard Osborn) Was patient admitted / discharged? Hospital course, mention meds given and rout e, prescriptions, significant lab abnormalities, going to OR and other pertinent info. @ -Admit I assumed patient care from Dr. Osborn, the patient had presented to the ER after a mechanical fall from standing. She had left sided pelvic pain. CT scans and been ordered but not resulted. I reviewed the CT scans myself there is a minimally displaced left pubic rami fracture this is confirmed by the radiologist report. Patient's pain is not managed I do feel she warrants admission to the hospital for evaluation by physical therapy to ensure that she can walk safely with her walker and her pain is managed. This plan was discussed with Dr. Flores who accepts the admission. Undiagnosed new problem with uncertain prognosis? @ -No Drug Therapy requiring intensive monitoring for toxicity (Heparin, Nitro, Insulin, Cardizem)? @ -No Were any procedures done? @ -No Diagnosis/symptom? @ -Superior pubic rami fracture Acute, or Chronic, or Acute on Chronic? @ -Acute Uncomplicated (without systemic symptoms) or Complicated (systemic symptoms)? @ -Uncomplicated Side effects of treatment? @ -No Exacerbation, Progression, or Severe Exacerbation? @ -No Poses a threat to life or bodily function? How? (Chest pain, USA, MA, pneumonia, PE, COPD, DKA, ARF, appy, cholecystitis, CVA, Diverticulitis, Homicidal, Suicidal, threat to staff... and all critical care pts) @ -No (Ana Lilia Cyr) Disposition <Edgard Osborn - Last Filed: 03/27/23 01:26> Is patient prescribed a controlled substance at d/c from ED?: No <Ana Lilia Cyr - Last Filed: 03/27/23 02:33> Clinical Impression: Fall, Closed fracture of pubic ramus Disposition: ADMITTED IP TO THIS HOSP Condition: Stable Referrals: Diaz Flores Jr, DO [Primary Care Provider] - 1-2 days
[2023-03-26] MEDS ORDERED: HYDROmorphone 1 MG/ML 1 ML SYRINGE IVP STA (21:42)
[2023-03-27] MEDS ORDERED: HYDROmorphone 1 MG/ML 1 ML SYRINGE IVP STA (00:07)
--- NOTE | 2023-03-27 00:23 | CT ---
EXAM: CT Pelvis Without Intravenous Contrast CLINICAL HISTORY: CT Reason: mechanical fall, left hip pain TECHNIQUE: Axial computed tomography images of the pelvis without intravenous contrast. CTDI is 20.5 mGy and DLP is 795.5 mGy-cm. This CT exam was performed using one or more of the following dose reduction techniques: automated exposure control, adjustment of the mA and/or kV according to patient size, and/or use of iterative reconstruction technique. COMPARISON: No relevant prior studies available. FINDINGS: Bowel: Unremarkable. No obstruction. No mucosal thickening. Appendix: No findings to suggest acute appendicitis. Intraperitoneal space: The uterus has been removed. No free fluid is seen in the pelvis. No free air. Bladder: Unremarkable. No stones. Reproductive: Unremarkable as visualized. Bones/joints: Mild narrowing and osteophytosis of both hip joints consistent with osteoarthritis. No acute fracture or dislocation is seen involving the femurs. There is a distant a nondisplaced fracture of the lateral aspect of the left superior pubic ramus. The remainder of the pelvis appears intact. Moderate degenerative changes in the lower lumbar spine and lumbosacral junction. Soft tissues: Unremarkable. Vasculature: The abdominal aorta is severely calcified but nondilated. Lymph nodes: Unremarkable. No enlarged lymph nodes. IMPRESSION: 1. There is a distant a nondisplaced fracture of the lateral aspect of the left superior pubic ramus. The remainder of the pelvis appears intact. 2. Mild narrowing and osteophytosis of both hip joints consistent with osteoarthritis. No acute fracture or dislocation is seen involving the femurs.
--- NOTE | 2023-03-27 02:13 | CT ---
EXAM: CT Lumbar Spine Without Intravenous Contrast CLINICAL HISTORY: ITS.REASON CT Reason: Mechanical fall, lumbar back pain TECHNIQUE: Axial computed tomography images of the lumbar spine without intravenous contrast. CTDI is 20.5 mGy and DLP is 795.5 mGy-cm. This CT exam was performed using one or more of the following dose reduction techniques: automated exposure control, adjustment of the mA and/or kV according to patient size, and/or use of iterative reconstruction technique. COMPARISON: No relevant prior studies available. FINDINGS: Vertebrae: No acute fracture. Minimal anterolisthesis L4 on L5 from facet arthrosis. Discs/spinal canal/neural foramina: Degenerative changes. No significant spinal canal stenosis. Mild to moderate foraminal stenosis L3-S1. Soft tissues: Unremarkable. IMPRESSION: No acute fracture.
[2023-03-27] MEDS ORDERED: ONDANSETRON 4 MG/2 ML VIAL IVP PRN (02:27)
[2023-03-27] MEDS ORDERED: NALOXONE 0.4 MG/ML 1 ML VIAL IV PRN (02:27)
[2023-03-27] MEDS ORDERED: ACETAMINOPHEN TAB 325 MG TAB PO PRN (02:27)
[2023-03-27 02:48] LABS: Basophils % (A) 0 %; Eosinophils # (A) 0.3 k/uL (0-0.7); Eosinophils % (A) 3 %; HCT 33.7 % (34.0-46.0); HGB 11.6 gm/dL (11.4-16.0); Lymphocytes # (A) 2.4 k/uL (1.0-4.8); Lymphocytes % (A) 22 %; MCH 34.9 pg (25.0-35.0); MCHC 34.6 g/dL (31.0-37.0); MCV 101.1 fL (80.0-100.0); Mean Platelet Volume 6.9; Monocytes # (A) 0.4 k/uL (0-1.0); Monocytes % (A) 4 %; Neutrophils # (A) 7.6 k/uL (1.3-7.7); Neutrophils % (A) 70 %; Platelet Count 248 k/uL (150-450); RBC 3.33 m/uL (3.80-5.40); RDW 12.8 % (11.5-15.5); WBC 10.9 k/uL (3.8-10.6)
[2023-03-27] MEDS: MORPHINE SULFATE 4 MG/ML SYRINGE IV PRN ×4 (02:49→17:35)
[2023-03-27 02:57] LABS: ALT 45 U/L (4-34); AST 94 U/L (14-36); African American GFR (CKD) >90 (>60 ml/min/1.73 sqM); Albumin 3.6 g/dL (3.5-5.0); Alkaline Phosphatase 155 U/L (38-126); Anion Gap 9 mmol/L; Blood Urea Nitrogen 6 mg/dL (7-17); Calcium 8.6 mg/dL (8.4-10.2); Carbon Dioxide 25 mmol/L (22-30); Chloride 92 mmol/L (98-107); Glucose 106 mg/dL (74-99); Non-African American GFR(CKD) >90 (>60 ml/min/1.73 sqM); Potassium 3.3 mmol/L (3.5-5.1); Sodium 126 mmol/L (137-145); Total Bilirubin 0.6 mg/dL (0.2-1.3); Total Protein 6.5 g/dL (6.3-8.2)
[2023-03-27] MEDS: HYDROcodone/APAP 5-325MG 1 EACH TAB PO PRN ×4 (05:10→20:28)
--- NOTE | 2023-03-27 14:59 | P.CNOR ---
History of Present Illness - [facility] Consult date: 03/27/23 Consult reason: fracture (Pelvis) History of present illness: This is a 72-year-old female who was admitted through the emergency department early this morning after falling and sustaining injury to her left hip and low back. She states that she was in her kitchen and tried to catch something from falling out of the refrigerator and lost her balance. She landed directly on her buttock and left side. On exam and computed tomography scan in the emergency department she was found to have a superior pubic rami fracture on the left. We're consulted for orthopedic evaluation. The patient complains of pain about the left groin. She is having some low back pain as well. She denies numbness or tingling. She denies loss of bowel or bladder function. Past Medical History Past Medical History: COPD, Hyperlipidemia, Hypertension History of Any Multi-Drug Resistant Organisms: None Reported Past Surgical History: Appendectomy, Hysterectomy, Orthopedic Surgery, Tonsillectomy Additional Past Surgical History / Comment(s): right hand, right/left shoulder Past Anesthesia/Blood Transfusion Reactions: No Reported Reaction Past Psychological History: Anxiety Smoking Status: Former smoker Past Alcohol Use History: Occasional Past Drug Use History: None Reported Medications and Allergies Home Medications Medication Instructions Recorded Confirmed Type ARIPiprazole [Abilify] 5 mg PO DAILY@0900 03/27/21 03/27/23 History Atorvastatin [Lipitor] 40 mg PO HS@2100 03/27/21 03/27/23 History Furosemide [Lasix] 20 mg PO DAILY@0900 03/27/21 03/27/23 History Omeprazole [PriLOSEC] 20 mg PO HS 04/20/21 03/27/23 History Phenytoin Sodium Extended 200 mg PO BID 04/20/21 03/27/23 History [Dilantin] Sertraline [Zoloft] 100 mg PO BID 04/20/21 03/27/23 History traZODone HCL [Desyrel] 100 mg PO HS 04/20/21 03/27/23 History Apixaban [Eliquis] 5 mg PO BID 03/27/23 03/27/23 History Fluticasone Propion/Salmeterol 2 puff INHALATION RT-BID 03/27/23 03/27/23 History [Advair Hfa 115-21 Mcg Inhaler] Metoprolol Succinate (ER) [Toprol 25 mg PO DAILY 03/27/23 03/27/23 History Xl] amLODIPine [Norvasc] 5 mg PO DAILY 03/27/23 03/27/23 History Allergies Allergy/AdvReac Type Severity Reaction Status Date / Time Penicillins Allergy Rash/Hives Verified 03/27/23 09:04 Physical Examination This is a pleasant 72-year-old female in no acute distress. She is alert and oriented 3. Exam of the head neck reveal no obvious deformity. She has fairly good cervical spine motion without difficulty or pain. There is mild tenderness with palpation about the paraspinals and trapezial muscles, particularly on the left. Exam of the upper extremities reveals no obvious deformity. She has full for flexion and abduction to both shoulders. She has full wrist and finger motion bilaterally. Neurovascular status to the upper extremities is intact. Exam of the low back and pelvis reveals no obvious deformity. There is mild left-sided paraspinal tenderness in the lumbar region. She is only tender over the spinous processes. There is mild pain with compression of the pelvis. Exam of the lower extremities reveals no shortening or rotational deformity. She is unable to lift the left leg off the bed independently. She is able lift the right leg off the bed. However, she complains of pain to the left hip with motion of the right leg. There is no hip irritability noted. She has full foot ankle motion with slight weakness in dorsiflexion on the left. Neurovascular status to the lower extremities is intact. Results Computed tomography scan of the pelvis reveals a minimally displaced superior rami fracture on the left. No bony abnormality noted to the hips or remaining pelvis. There are mild degenerative changes noted. CT of the lumbar spine reveals degenerative arthritis and mild disc disease. No acute fracture noted. - Labs Labs: Abnormal Lab Results - Last 24 Hours (Table) 03/27/23 03/27/23 Range/Units 02:36 02:36 WBC 10.9 H (3.8-10.6) k/uL RBC 3.33 L (3.80-5.40) m/uL Hct 33.7 L (34.0-46.0) % MCV 101.1 H (80.0-100.0) fL Sodium 126 L (137-145) mmol/L Potassium 3.3 L (3.5-5.1) mmol/L Chloride 92 L (98-107) mmol/L BUN 6 L (7-17) mg/dL Creatinine 0.37 L (0.52-1.04) mg/dL Glucose 106 H (74-99) mg/dL AST 94 H (14-36) U/L ALT 45 H (4-34) U/L Alkaline Phosphatase 155 H (38-126) U/L H & H 03/27/23 Range/Units 02:36 Hgb 11.6 (11.4-16.0) gm/dL Hct 33.7 L (34.0-46.0) % Result Diagrams: 03/27/23 02:36 03/27/23 02:36 Assessment and Plan (1) Closed fracture of pubic ramus Current Visit: Yes Status: Acute Code(s): S32.599A - OTH FRACTURE OF UNSP PUBIS, INIT ENCNTR FOR CLOSED FRACTURE SNOMED Code(s): 33603547 (2) Fall Current Visit: Yes Status: Acute Code(s): W19.XXXA - UNSPECIFIED FALL, INITIAL ENCOUNTER SNOMED Code(s): 5148097 Plan: The clinical and radiographic findings are discussed with the patient. She is being admitted to internal medicine. I recommend physical therapy and occupational therapy. She will likely need placement in rehab short term. She may be discharged to rehab when cleared medically.
--- NOTE | 2023-03-27 17:26 | P.HPIM ---
History of Present Illness H&P Date: 03/27/23 Chief Complaint: Fall pelvic pain This patient was living in this assisted living facility, she stated that she fell backwards and injured left lumbar region left hip. Was experiencing significant pain ambulance was called and transported the patient to the hospital denies headache. Denies loss of consciousness denies headache denies chest pain or pressure patient is on Eliquis for A. fib Review of Systems Constitutional: Reports as per HPI Ears, nose, mouth and throat: Reports as per HPI Cardiovascular: Reports as per HPI Respiratory: Reports as per HPI Gastrointestinal: Reports as per HPI Genitourinary: Reports as per HPI Menstruation: Reports postmenopausal Musculoskeletal: Reports low back pain (Pelvic pain) Integumentary: Reports as per HPI Neurological: Reports as per HPI Psychiatric: Reports as per HPI Past Medical History Past Medical History: COPD, Hyperlipidemia, Hypertension History of Any Multi-Drug Resistant Organisms: None Reported Past Surgical History: Appendectomy, Hysterectomy, Orthopedic Surgery, Tonsillectomy Additional Past Surgical History / Comment(s): right hand, right/left shoulder Past Anesthesia/Blood Transfusion Reactions: No Reported Reaction Past Psychological History: Anxiety Smoking Status: Former smoker Past Alcohol Use History: Occasional Past Drug Use History: None Reported Medications and Allergies Home Medications Medication Instructions Recorded Confirmed Type ARIPiprazole [Abilify] 5 mg PO DAILY@0900 03/27/21 03/27/23 History Atorvastatin [Lipitor] 40 mg PO HS@2100 03/27/21 03/27/23 History Furosemide [Lasix] 20 mg PO DAILY@0900 03/27/21 03/27/23 History Omeprazole [PriLOSEC] 20 mg PO HS 04/20/21 03/27/23 History Phenytoin Sodium Extended 200 mg PO BID 04/20/21 03/27/23 History [Dilantin] Sertraline [Zoloft] 100 mg PO BID 04/20/21 03/27/23 History traZODone HCL [Desyrel] 100 mg PO HS 04/20/21 03/27/23 History Apixaban [Eliquis] 5 mg PO BID 03/27/23 03/27/23 History Fluticasone Propion/Salmeterol 2 puff INHALATION RT-BID 03/27/23 03/27/23 History [Advair Hfa 115-21 Mcg Inhaler] Metoprolol Succinate (ER) [Toprol 25 mg PO DAILY 03/27/23 03/27/23 History Xl] amLODIPine [Norvasc] 5 mg PO DAILY 03/27/23 03/27/23 History Allergies Allergy/AdvReac Type Severity Reaction Status Date / Time Penicillins Allergy Rash/Hives Verified 03/27/23 09:04 Physical Exam Osteopathic Statement: *. No significant issues noted on an osteopathic structural exam other than those noted in the History and Physical/Consult. Vitals: Vital Signs Temp Pulse Pulse Resp BP BP Pulse Ox 03/27/23 13:11 88 03/27/23 13:08 97.8 F 17 126/64 95 03/27/23 08:31 17 116/58 95 03/27/23 06:33 85 16 109/62 95 03/27/23 05:34 85 18 112/61 95 03/27/23 04:20 16 03/27/23 03:39 97.9 F 88 18 153/62 94 L 03/27/23 00:13 92 18 117/73 94 L 03/26/23 22:09 64 18 135/59 99 03/26/23 21:29 97.8 F 88 18 128/75 98 Intake and Output 03/27/23 03/27/23 03/27/23 06:59 14:59 22:59 Other: Voiding Method External Catheter Results CBC & Chem 7: 03/27/23 02:36 03/27/23 02:36 Labs: Abnormal Lab Results - Last 24 Hours (Table) 03/27/23 03/27/23 Range/Units 02:36 02:36 WBC 10.9 H (3.8-10.6) k/uL RBC 3.33 L (3.80-5.40) m/uL Hct 33.7 L (34.0-46.0) % MCV 101.1 H (80.0-100.0) fL Sodium 126 L (137-145) mmol/L Potassium 3.3 L (3.5-5.1) mmol/L Chloride 92 L (98-107) mmol/L BUN 6 L (7-17) mg/dL Creatinine 0.37 L (0.52-1.04) mg/dL Glucose 106 H (74-99) mg/dL AST 94 H (14-36) U/L ALT 45 H (4-34) U/L Alkaline Phosphatase 155 H (38-126) U/L Thrombosis Risk Factor Assmnt - DVT/VTE Prophylaxis DVT/VTE Prophylaxis: Pharmacologic Prophylaxis ordered Assessment and Plan (1) Closed fracture of pubic ramus Current Visit: Yes Status: Acute Code(s): S32.599A - OTH FRACTURE OF UNSP PUBIS, INIT ENCNTR FOR CLOSED FRACTURE SNOMED Code(s): 89886632 (2) Fall Current Visit: Yes Status: Acute Code(s): W19.XXXA - UNSPECIFIED FALL, INITIAL ENCOUNTER SNOMED Code(s): 8019965 (3) Colitis Current Visit: No Status: Acute Code(s): K52.9 - NONINFECTIVE GASTROENTERITIS AND COLITIS, UNSPECIFIED SNOMED Code(s): 03412979 (4) Depressive disorder Current Visit: No Status: Acute Code(s): F32.9 - MAJOR DEPRESSIVE DISORDER, SINGLE EPISODE, UNSPECIFIED SNOMED Code(s): 67423675 (5) Hypertensive heart disease Current Visit: No Status: Acute Code(s): I11.9 - HYPERTENSIVE HEART DISEASE WITHOUT HEART FAILURE SNOMED Code(s): 61766418 (6) Seizure disorder Current Visit: No Status: Acute Code(s): G40.909 - EPILEPSY, UNSP, NOT INTRACTABLE, WITHOUT STATUS EPILEPTICUS SNOMED Code(s): 471347894 (7) Tachyarrhythmia Current Visit: No Status: Acute Code(s): R00.0 - TACHYCARDIA, UNSPECIFIED SNOMED Code(s): 8692012 Plan: Patient admitted to the hospital pubic ramus fracture Pain management Elevated liver enzymes Time with Patient: Greater than 30
[2023-03-27] MEDS: SYMBICORT 160-4.5 MCG INHALER INHALATION SCH (19:59)
[2023-03-27] MEDS: PHENYTOIN SODIUM EXTENDED 100 MG CAP PO SCH (20:27)
[2023-03-27] MEDS: ATORVASTATIN 40 MG TAB PO SCH (20:28)
[2023-03-27] MEDS: PANTOPRAZOLE 40 MG TABLET PO SCH (20:28)
[2023-03-27] MEDS: SERTRALINE 100 MG TAB PO SCH (20:28)
[2023-03-27] MEDS: APIXABAN 5 MG TAB PO SCH (20:28)
[2023-03-27] MEDS: HYDROmorphone 2 MG TAB PO PRN (22:02)
[2023-03-28] MEDS: MORPHINE SULFATE 4 MG/ML SYRINGE IV PRN ×5 (00:23→19:56)
[2023-03-28] MEDS: HYDROcodone/APAP 5-325MG 1 EACH TAB PO PRN ×4 (02:55→18:51)
[2023-03-28] MEDS: SYMBICORT 160-4.5 MCG INHALER INHALATION SCH ×2 (08:22→18:28)
[2023-03-28] MEDS: METOPROLOL SUCCINATE (ER) 25 MG TAB.ER.24H PO SCH (09:02)
[2023-03-28] MEDS: SERTRALINE 100 MG TAB PO SCH ×2 (09:02→19:55)
[2023-03-28] MEDS: FUROSEMIDE 20 MG TAB PO SCH (09:02)
[2023-03-28] MEDS: amLODIPine 5 MG TAB PO SCH (09:02)
[2023-03-28] MEDS: APIXABAN 5 MG TAB PO SCH ×2 (09:02→19:55)
[2023-03-28] MEDS: PHENYTOIN SODIUM EXTENDED 100 MG CAP PO SCH ×2 (09:03→19:56)
[2023-03-28] MEDS: ARIPiprazole 5 MG TAB PO SCH (09:03)
[2023-03-28 12:21] LABS: Basophils % (A) 0 %; Eosinophils # (A) 0.1 k/uL (0-0.7); Eosinophils % (A) 1 %; HCT 34.5 % (34.0-46.0); HGB 11.3 gm/dL (11.4-16.0); Lymphocytes # (A) 0.7 k/uL (1.0-4.8); Lymphocytes % (A) 5 %; MCH 33.8 pg (25.0-35.0); MCHC 32.8 g/dL (31.0-37.0); Macrocytosis Slight; Mean Platelet Volume 7.3; Monocytes # (A) 0.5 k/uL (0-1.0); Monocytes % (A) 4 %; Neutrophils # (A) 11.9 k/uL (1.3-7.7); Neutrophils % (A) 89 %; Platelet Count 240 k/uL (150-450); RBC 3.35 m/uL (3.80-5.40); RDW 13.1 % (11.5-15.5); WBC 13.4 k/uL (3.8-10.6)
[2023-03-28 12:22] LABS: African American GFR (CKD) >90 (>60 ml/min/1.73 sqM); Anion Gap 8 mmol/L; Blood Urea Nitrogen 6 mg/dL (7-17); Carbon Dioxide 27 mmol/L (22-30); Chloride 94 mmol/L (98-107); Glucose 135 mg/dL (74-99); Non-African American GFR(CKD) >90 (>60 ml/min/1.73 sqM); Potassium 3.2 mmol/L (3.5-5.1); Sodium 129 mmol/L (137-145)
--- NOTE | 2023-03-28 14:22 | P.PN ---
Subjective This is a pleasant female. She presented emergency room by ambulance after falling. She was admitted for Fracture of the pelvis. Orthopedics is rec ommending physical and occupational therapy. Vital signs are stable. She is afebrile. Laboratory studies show a slight leukocytosis at 13.4. Hemoglobin 11.3. Platelets 240. Electrolyte shell sodium of 129, potassium 3.2 She is resting comfortably. She did sleep last night. Her pain is better control led. Objective - Vital Signs Vital signs: Vital Signs Temp 98.6 F 03/28/23 11:45 Pulse 84 03/28/23 11:45 Resp 19 03/28/23 11:45 BP 113/70 03/28/23 11:45 Pulse Ox 90 L 03/28/23 11:45 FiO2 Intake & Output 03/27/23 03/28/23 03/28/23 18:59 06:59 18:59 Intake Total 590 Output Total 300 Balance 290 Weight 70.307 kg Intake: Oral 590 Output: Urine 300 Other: Voiding Method External Catheter External Catheter External Catheter - Constitutional General appearance: Present: average body habitus - EENT Eyes: Present: PERRLA - Neck Neck: Absent: lymphadenopathy, thyromegaly - Respiratory Respiratory: bilateral: CTA - Cardiovascular Rhythm: regular Heart sounds: normal: S1, S2 Abnormal Heart Sounds: Absent: systolic murmur - Gastrointestinal General gastrointestinal: Present: normal bowel sounds - Neurologic Neurologic: Present: CNII-XII intact. Absent: focal deficits - Psychiatric Psychiatric: Present: A&O x's 3, intact judgment & insight - Labs CBC & Chem 7: 03/28/23 11:53 03/28/23 11:53 Labs: Abnormal Lab Results - Last 24 Hours (Table) 03/28/23 03/28/23 Range/Units 11:53 11:53 WBC 13.4 H (3.8-10.6) k/uL RBC 3.35 L (3.80-5.40) m/uL Hgb 11.3 L (11.4-16.0) gm/dL MCV 103.0 H (80.0-100.0) fL Neutrophils # 11.9 H (1.3-7.7) k/uL Lymphocytes # 0.7 L (1.0-4.8) k/uL Sodium 129 L (137-145) mmol/L Potassium 3.2 L (3.5-5.1) mmol/L Chloride 94 L (98-107) mmol/L BUN 6 L (7-17) mg/dL Creatinine 0.32 L (0.52-1.04) mg/dL Glucose 135 H (74-99) mg/dL - Imaging and Cardiology CT scan - pelvis: report reviewed Assessment and Plan (1) Mixed hyperlipidemia Current Visit: Yes Status: Acute Code(s): E78.2 - MIXED HYPERLIPIDEMIA SNOMED Code(s): 586818539 (2) Closed fracture of pubic ramus Current Visit: Yes Status: Acute Code(s): S32.599A - OTH FRACTURE OF UNSP PUBIS, INIT ENCNTR FOR CLOSED FRACTURE SNOMED Code(s): 59568232 (3) Fall Current Visit: Yes Status: Acute Code(s): W19.XXXA - UNSPECIFIED FALL, INITIAL ENCOUNTER SNOMED Code(s): 6785745 (4) Depressive disorder Current Visit: No Status: Acute Code(s): F32.9 - MAJOR DEPRESSIVE DISORDER, SINGLE EPISODE, UNSPECIFIED SNOMED Code(s): 46070769 (5) Hypertensive heart disease Current Visit: No Status: Acute Code(s): I11.9 - HYPERTENSIVE HEART DISEASE WITHOUT HEART FAILURE SNOMED Code(s): 72466991 (6) Seizure disorder Current Visit: No Status: Acute Code(s): G40.909 - EPILEPSY, UNSP, NOT INTRACTABLE, WITHOUT STATUS EPILEPTICUS SNOMED Code(s): 331232920 (7) Electrolyte abnormality Current Visit: Yes Status: Acute Code(s): E87.8 - OTH DISORDERS OF ELECTROLYTE AND FLUID BALANCE, NEC SNOMED Code(s): 525913417 Plan: she Has been resumed on her home medication. She is on Eliquis for anticoagulation. We will plan ECF at [facility] on the [place] for her. She will be reevaluated in 24 hours.
[2023-03-28] MEDS: POTASSIUM CHLORIDE 10 MEQ in WATER FOR INJECTION 1 100ML.BAG IVPB SCH ×2 (15:51→16:53)
[2023-03-28] MEDS ORDERED: POTASSIUM CHLORIDE ER 20 MEQ TAB.ER PO STA (16:50)
[2023-03-28] MEDS: PANTOPRAZOLE 40 MG TABLET PO SCH (19:55)
[2023-03-28] MEDS: ATORVASTATIN 40 MG TAB PO SCH (19:55)
[2023-03-28] MEDS: HYDROmorphone 2 MG TAB PO PRN (23:23)
[2023-03-29] MEDS: MORPHINE SULFATE 4 MG/ML SYRINGE IV PRN ×4 (01:05→18:18)
[2023-03-29] MEDS: HYDROcodone/APAP 5-325MG 1 EACH TAB PO PRN ×4 (03:57→20:00)
[2023-03-29] MEDS: SERTRALINE 100 MG TAB PO SCH ×2 (08:45→20:00)
[2023-03-29] MEDS: PHENYTOIN SODIUM EXTENDED 100 MG CAP PO SCH ×2 (08:45→20:00)
[2023-03-29] MEDS: amLODIPine 5 MG TAB PO SCH (08:45)
[2023-03-29] MEDS: APIXABAN 5 MG TAB PO SCH ×2 (08:46→20:00)
[2023-03-29] MEDS: ARIPiprazole 5 MG TAB PO SCH (08:46)
[2023-03-29] MEDS: METOPROLOL SUCCINATE (ER) 25 MG TAB.ER.24H PO SCH (08:46)
[2023-03-29] MEDS: FUROSEMIDE 20 MG TAB PO SCH (08:46)
[2023-03-29] MEDS: SYMBICORT 160-4.5 MCG INHALER INHALATION SCH ×2 (09:13→20:44)
--- NOTE | 2023-03-29 10:09 | CDI ---
Documentation Clarification Form Date: 03/29/2023 09:55:59 AM From: Lissa Tripathi RN, CCDS Admit Date: 03/27/2023 02:27:00 AM Patient Name: Bhumi Cook Visit Number: [id number] Discharge Date: ATTENTION: The Clinical Documentation Specialists (CDI) and [facility] Coding Staff appreciate your assistance in clarifying documentation. Please respond to the clarification below the line at the bottom and electronically sign. The CDI & [facility] Coding staff will review the response and follow-up if needed. Please note: Queries are made part of the Legal Health Record. If you have any questions, please contact the author of this message via ITS. Dr. Braulio Ghosh Atrial Fibrillation is documented in the H/P with ongoing treatment. Additional clarification regarding the type of atrial fibrillation is requested. History/Risk Factors: COPD, Hyperlipidemia, Hypertension, Eliquis for A. fib Clinical Indicators: 72-year-old female present after fall with pelvic pain. She was ruled in for closed fracture of pubic ramus. History of atrial fibrillation. 03/26 VS: 128/75 88 18 98% 2/L NC Treatment: Eliquis 5 MG PO BID Please clarify the type of atrial fibrillation, if known: [ ] Chronic [ ] Permanent [ x ] Paroxysmal [ ] Persistent [ ] Other, please specify [ ] Unable to determine (Template Last Revised: October 2020) MTDD
[2023-03-29 11:09] LABS: Blood Urea Nitrogen 8.5 mg/dL (9.0-27.0); Carbon Dioxide 25.4 mmol/L (21.6-31.8); Chloride 96 mmol/L (96-109); Glucose 113 mg/dL (70-110); Potassium 3.4 mmol/L (3.5-5.5); Sodium 134 mmol/L (135-145)
--- NOTE | 2023-03-29 11:53 | P.PN ---
Subjective This is a pleasant female. She presented emergency room by ambulance after falling. She was admitted for Fracture of the pelvis. Orthopedics is rec [facility] physical and occupational therapy. Vital signs are stable. She is afebrile. Laboratory studies show a slight leukocytosis at 13.4. Hemoglobin 11.3. Platelets 240. Electrolyte shell sodium of 129, potassium 3.2 She is resting comfortably. She did sleep last night. Her pain is better control led. 03/29/2023: Patient remains stable afebrile. She has a known pelvic fracture. Working on rehabilitation for her. She indicates she has not stooled since 4 days ago. She denies any chest pains pressures or shortness of breath this time. Just extreme pain with motion. Vital signs show she is afebrile heart rate respiratory normalize her blood pressure. She slightly hypoxic with a pulse oximetry of 92% on 3 L of O2. The auditory studies today show improvement in her hyponatremia and 3.4. Objective - Vital Signs Vital signs: Vital Signs Temp 98.5 F 03/29/23 06:58 Pulse 76 03/29/23 08:45 Resp 18 03/29/23 08:45 BP 118/64 03/29/23 06:58 Pulse Ox 92 L 03/29/23 09:14 FiO2 Intake & Output 03/28/23 03/29/23 03/29/23 18:59 06:59 18:59 Intake Total 540 325 Output Total 100 Balance 540 225 Intake: Oral 540 325 Output: Urine 100 Other: Voiding Method External Catheter External Catheter External Catheter # Voids 1 1 - Exam GENERAL: Petite elderly female in no acute distress. HEAD: Atraumatic, normocephalic. NECK: Normal range of motion, supple without lymphadenopathy or JVD, no thyromegaly LUNGS: Breath sounds clear to auscultation bilaterally and equal. No wheezes rales or rhonchi. HEART: Regular rate and rhythm without murmurs, rubs or gallops.S1S2 Normal minimal epigastric tenderness ABDOMEN: Soft, normoactive bowel sounds. No guarding, no rebound. No masses appreciated. EXTREMITIES: no pitting or edema. No clubbing or cyanosis. Range of motion was deferred due to her pelvic fracture NEUROLOGICAL: Cranial nerves II through XII grossly intact. Normal speech, normal gait. PSYCH: Normal mood, normal affect. SKIN: Warm, Dry, normal turgor, no rashes or lesions noted. - Labs CBC & Chem 7: 03/28/23 11:53 03/29/23 06:44 Labs: Abnormal Lab Results - Last 24 Hours (Table) 03/28/23 03/28/23 03/29/23 Range/Units 11:53 11:53 06:44 WBC 13.4 H (3.8-10.6) k/uL RBC 3.35 L (3.80-5.40) m/uL Hgb 11.3 L (11.4-16.0) gm/dL MCV 103.0 H (80.0-100.0) fL Neutrophils # 11.9 H (1.3-7.7) k/uL Lymphocytes # 0.7 L (1.0-4.8) k/uL Sodium 129 L 134 L (137-145) mmol/L Potassium 3.2 L 3.4 L (3.5-5.1) mmol/L Chloride 94 L (98-107) mmol/L Anion Gap 12.60 H (4.00-12.00) mmol/L BUN 6 L 8.5 L (7-17) mg/dL Creatinine 0.32 L 0.5 L (0.52-1.04) mg/dL Glucose 135 H 113 H (74-99) mg/dL Assessment and Plan (1) Mixed hyperlipidemia Current Visit: Yes Status: Acute Code(s): E78.2 - MIXED HYPERLIPIDEMIA SNOMED Code(s): 838923442 (2) Closed fracture of pubic ramus Current Visit: Yes Status: Acute Code(s): S32.599A - OTH FRACTURE OF UNSP PUBIS, INIT ENCNTR FOR CLOSED FRACTURE SNOMED Code(s): 49620047 (3) Fall Current Visit: Yes Status: Acute Code(s): W19.XXXA - UNSPECIFIED FALL, INITI AL ENCOUNTER SNOMED Code(s): 1178624 (4) Depressive disorder Current Visit: No Status: Acute Code(s): F32.9 - MAJOR DEPRESSIVE DISORDER, SINGLE EPISODE, UNSPECIFIED SNOMED Code(s): 00111624 (5) Hypertensive heart disease Current Visit: No Status: Acute Code(s): I11.9 - HYPERTENSIVE HEART DISEASE WITHOUT HEART FAILURE SNOMED Code(s): 49019111 (6) Seizure disorder Current Visit: No Status: Acute Code(s): G40.909 - EPILEPSY, UNSP, NOT INTRACTABLE, WITHOUT STATUS EPILEPTICUS SNOMED Code(s): 560420168 (7) Electrolyte abnormality Current Visit: Yes Status: Acute Code(s): E87.8 - OTH DISORDERS OF ELECTRO LYTE AND FLUID BALANCE, NEC SNOMED Code(s): 437589324 (8) Paroxysmal atrial fibrillation Current Visit: Yes Status: Acute Code(s): I48.0 - PAROXYSMAL ATRIAL FIBRILLATION SNOMED Code(s): 439831842 (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 she Has been resumed on her home medication. She is on Eliquis for anticoagulation. We will plan ECF at [facility] on the [place] for her. She will be reevaluated in 24 hours.
[2023-03-29] MEDS: POTASSIUM CHLORIDE ER 20 MEQ TAB.ER PO SCH (13:11)
[2023-03-29] MEDS: PANTOPRAZOLE 40 MG TABLET PO SCH (20:00)
[2023-03-29] MEDS: DOCUSATE 100 MG CAP PO SCH (20:01)
[2023-03-29] MEDS: ATORVASTATIN 40 MG TAB PO SCH (20:01)
[2023-03-30 06:43] LABS: African American GFR (CKD) >90 (>60 ml/min/1.73 sqM); Anion Gap 10 mmol/L; Blood Urea Nitrogen 11 mg/dL (7-17); Calcium 9.1 mg/dL (8.4-10.2); Carbon Dioxide 25 mmol/L (22-30); Chloride 97 mmol/L (98-107); Glucose 101 mg/dL (74-99); Non-African American GFR(CKD) >90 (>60 ml/min/1.73 sqM); Potassium 3.5 mmol/L (3.5-5.1); Sodium 132 mmol/L (137-145)
[2023-03-30] MEDS: SYMBICORT 160-4.5 MCG INHALER INHALATION SCH (08:37)
--- NOTE | 2023-03-30 08:55 | P.DS ---
Providers Date of admission: 03/27/23 02:27 Expected date of discharge: 03/30/23 Attending physician: Diaz Flores Consults: 03/27/23 02:35 Consult Physician Urgent Consulting Provider: Oz Neal Consult Reason/Comments: superior pubic rami fracture -established patient Do you want consulting provider notified?: Yes, Notify in am Primary care physician: Diaz Flores - Discharge Diagnosis(es) (1) Mixed hyperlipidemia Current Visit: Yes Status: Acute (2) Closed fracture of pubic ramus Current Visit: Yes Status: Acute (3) Fall Current Visit: Yes Status: Acute (4) Depressive disorder Current Visit: No Status: Acute (5) Hypertensive heart disease Current Visit: No Status: Acute (6) Seizure disorder Current Visit: No Status: Acute (7) Electrolyte abnormality Current Visit: Yes Status: Acute (8) Paroxysmal atrial fibrillation Current Visit: Yes Status: Acute (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 She presented emergency room by ambulance after falling. She was admitted for Fracture of the pelvis. Orthopedics is recommending physical and occupational therapy. Vital signs are stable. She is afebrile. Laboratory studies show a slight leukocytosis at 13.4. Hemoglobin 11.3. Platelets 240. Electrolyte shell sodium of 129, potassium 3.2 She is resting comfortably. She did sleep last night. Her pain is better controlled. 03/29/2023: Patient remains stable afebrile. She has a known pelvic fracture. Working on rehabilitation for her. She indicates she has not stooled since 4 days ago. She denies any chest pains pressures or shortness of breath this time. Just extreme pain with motion. Vital signs show she is afebrile heart rate respiratory normalize her blood pressure. She slightly hypoxic with a pulse oximetry of 92% on 3 L of O2. The auditory studies today show improvement in her hyponatremia and 3.4. 03/30/2023: Patient pain is a little bit better today. She'll have rehabilitation. Continue on hydrocodone 5/325, 1 tablet for moderate, 2 for severe pain. I will see her myself at [facility] Patient Condition at Discharge: Stable Plan - Discharge Summary Discharge Rx Participant: No New Discharge Prescriptions: New Docusate [Colace] 100 mg PO BID cap HYDROcodone/APAP 5-325MG [Sawyer 5-325] 1 each PO Q4HR PRN tab PRN Reason: Moderate Pain (Scale 4 To 6) Acetaminophen Tab [Tylenol] 650 mg PO Q6HR PRN tab PRN Reason: Mild Pain Or Fever > 100.5 Potassium Chloride ER [K-Dur 20] 20 meq PO DAILY tab HYDROcodone/APAP 5-325MG [Sawyer 5-325] 2 each PO Q6HR PRN tab PRN Reason: Pain Continue Furosemide [Lasix] 20 mg PO DAILY@0900 ARIPiprazole [Abilify] 5 mg PO DAILY@0900 Sertraline [Zoloft] 100 mg PO BID Phenytoin Sodium Extended [Dilantin] 200 mg PO BID Fluticasone Propion/Salmeterol [Advair Hfa 115-21 Mcg Inhaler] 2 puff INHALATION RT-BID Atorvastatin [Lipitor] 40 mg PO HS@2100 traZODone HCL [Desyrel] 100 mg PO HS Omeprazole [PriLOSEC] 20 mg PO HS amLODIPine [Norvasc] 5 mg PO DAILY Apixaban [Eliquis] 5 mg PO BID Metoprolol Succinate (ER) [Toprol XL] 25 mg PO DAILY Discharge Medication List ARIPiprazole [Abilify] 5 mg PO DAILY@0900 03/27/21 [History] Atorvastatin [Lipitor] 40 mg PO HS@2100 03/27/21 [History] Furosemide [Lasix] 20 mg PO DAILY@0900 03/27/21 [History] Omeprazole [PriLOSEC] 20 mg PO HS 04/20/21 [History] Phenytoin Sodium Extended [Dilantin] 200 mg PO BID 04/20/21 [History] Sertraline [Zoloft] 100 mg PO BID 04/20/21 [History] traZODone HCL [Desyrel] 100 mg PO HS 04/20/21 [History] Apixaban [Eliquis] 5 mg PO BID 03/27/23 [History] Fluticasone Propion/Salmeterol [Advair Hfa 115-21 Mcg Inhaler] 2 puff INHALATION RT-BID 03/27/23 [History] Metoprolol Succinate (ER) [Toprol XL] 25 mg PO DAILY 03/27/23 [History] amLODIPine [Norvasc] 5 mg PO DAILY 03/27/23 [History] Acetaminophen Tab [Tylenol] 650 mg PO Q6HR PRN tab 03/30/23 [Rx] Docusate [Colace] 100 mg PO BID cap 03/30/23 [Rx] HYDROcodone/APAP 5-325MG [Sawyer 5-325] 1 each PO Q4HR PRN tab 03/30/23 [Rx] HYDROcodone/APAP 5-325MG [Sawyer 5-325] 2 each PO Q6HR PRN tab 03/30/23 [Rx] Potassium Chloride ER [K-Dur 20] 20 meq PO DAILY tab 03/30/23 [Rx] Follow up Appointment(s)/Referral(s): Diaz Flores Jr, [Primary Care Provider] - 1-2 days
[2023-03-30] MEDS: HYDROcodone/APAP 5-325MG 1 EACH TAB PO PRN (09:00)
[2023-03-30] MEDS: amLODIPine 5 MG TAB PO SCH (09:55)
[2023-03-30] MEDS: DOCUSATE 100 MG CAP PO SCH (09:55)
[2023-03-30] MEDS: APIXABAN 5 MG TAB PO SCH (09:55)
[2023-03-30] MEDS: METOPROLOL SUCCINATE (ER) 25 MG TAB.ER.24H PO SCH (09:55)
[2023-03-30] MEDS: FUROSEMIDE 20 MG TAB PO SCH (09:55)
[2023-03-30] MEDS: POTASSIUM CHLORIDE ER 20 MEQ TAB.ER PO SCH (09:55)
[2023-03-30] MEDS: SERTRALINE 100 MG TAB PO SCH (09:55)
[2023-03-30] MEDS: ARIPiprazole 5 MG TAB PO SCH (09:58)
[2023-03-30] MEDS: PHENYTOIN SODIUM EXTENDED 100 MG CAP PO SCH (09:58)
[2023-03-30 12:00] VITALS: BP 107/54; PULSE 76; RESP 18; TEMP 97.7
[2023-03-30] MEDS: MORPHINE SULFATE 4 MG/ML SYRINGE IV PRN (12:30)
== END 2023-03-30 13:37 | DRG 536 ==
LOC: EC 21:25 → 4SSUR 03-27 02:27 → 5NMEDONC 03-27 22:40
PROVIDERS: ADMIT Family Medicine; ATTEND Family Medicine
DX: S32.512A Fracture of superior rim of left pubis, initial encounter for closed fracture (principal); E87.1 Hypo-osmolality and hyponatremia; I11.9 Hypertensive heart disease without heart failure; G40.909 Epilepsy, unspecified, not intractable, without status epilepticus; J44.9 Chronic obstructive pulmonary disease, unspecified; I48.0 Paroxysmal atrial fibrillation; F32.9 Major depressive disorder, single episode, unspecified; E78.2 Mixed hyperlipidemia; K52.9 Noninfective gastroenteritis and colitis, unspecified; M47.816 Spondylosis without myelopathy or radiculopathy, lumbar region; R74.8 Abnormal levels of other serum enzymes; R09.02 Hypoxemia; R00.0 Tachycardia, unspecified; W01.0XXA Fall on same level from slipping, tripping and stumbling without subsequent striking against object, initial encounter; Y92.000 Kitchen of unspecified non-institutional (private) residence as the place of occurrence of the external cause; Z79.01 Long term (current) use of anticoagulants; Z87.891 Personal history of nicotine dependence; Z79.899 Other long term (current) drug therapy; Z79.51 Long term (current) use of inhaled steroids; Z88.0 Allergy status to penicillin
CPT/HCPCS: 72131; 72192; 80048; 80053; 85025; 94640; 94760; 96374; 96376; 99285

== ENCOUNTER → 2023-07-07 | Outpatient (CLI) | payer MEDICARE, OTHER ==
--- NOTE | 2023-07-07 13:24 | XR ---
EXAMINATION TYPE: XR ribs RT DATE OF EXAM: 07/07/2023 12:26 PM CLINICAL INDICATION:Female, 72 years old with history of R07.81 rt rib pain; [facility] COMPARISON: 07/07/2023 TECHNIQUE: XR ribs RT; Frontal and oblique views of the ribs with frontal chest radiograph. FINDINGS: The ribs have a normal appearance. No evidence of fracture. Overall, the lungs are clear. The cardiac silhouette is normal in size. The remaining osseous structures are intact. IMPRESSION: No acute osseous pathology.
== END | disposition home or self-care (01) ==
LOC: RADXRMAIN 11:38
PROVIDERS: ATTEND Family Medicine
DX: R07.81 Pleurodynia (principal)